=== PATIENT | male | born 1935 | race Caucasian/White ===

== ENCOUNTER 2016-10-07 11:34 | Emergency (ER) | payer OTHER ==
[~2016-10-07] VITALS: Ht 172.7 cm; Wt 110.9 kg
[~2016-10-07 11:34] MED LIST: AGM875 PO
[2016-10-07 11:37] VITALS: TEMP 36.5; Ht 172.7 cm; Wt 110.9 kg
--- NOTE | 2016-10-07 12:44 | EMERGENCY ROOM VISIT NOTE ---
ED Visit Note First contact with patient: 12:23 Resident Physician Supervision Note: I was present with Dr. Mcgrath during the history and exam. I discussed the case with the resident and agree with the findings and plan as documented in the note. Documented By: Lior Boss
[2016-10-07 12:45] VITALS: O2SAT 94
--- NOTE | 2016-10-07 12:47 | EMERGENCY ROOM VISIT NOTE ---
History First contact with patient: 12:23 Chief Complaint: KNEEPAIN Stated Complaint: L KNEE PAIN History of Present Illness The patient is a 81 year old male who presents to the Emergency Room with complaints of knee pain and dizziness. He reports he has a history of knee arthritis, had a R knee replacement and has chronic left knee pain. He reports he woke up today and when getting out of bed he noticed sharp knee pain that lasted 1-2 minutes. It was mainly in the posterior aspect of the knee. It was sharp, and did not radiate. It resolved on its own. He was then watching TV and laying on his right side, and then noticed his vision became blurry for a moment. He sat upright and sat towards the left side, and did not notice any visual changes. He went back to the right side and his vision became blurry again. This all resolved and has not occurred when he looks to the right side again now. He denies any pain or dizziness at this moment. He did drive to and back from [place] yesterday and so feels dehydrated. He is still passing urine and stool. Review of Systems See HPI for pertinent positives & negatives. A total of 10 systems reviewed and were otherwise negative. Past Medical/Surgical History Osteoarthritis BPH Previous L leg DVT Family History No pertinent FHx Social History Smoking Status: Never Smoker Current/Historical Medications Scheduled Enoxaparin (Lovenox), 150 MG SC DAILY Omeprazole (Prilosec), 20 MG PO DAILY Tamsulosin Hcl (Flomax), 1 CAP PO 5XWK Scheduled PRN Fluticasone Propionate (Nasal) (Clarispray), 1 SPRAY GRISELDA DAILY PRN for Nasal Congestion Allergies Coded Allergies: No Known Allergies (Unverified , 10/07/16) Physical Exam Vital Signs Date Time Temp Pulse Resp B/P Pulse Ox O2 Delivery O2 Flow Rate FiO2 10/07/16 14:13 71 16 155/75 96 Room Air 68 155/78 70 160/94 10/07/16 12:45 94 Room Air 10/07/16 11:37 36.5 79 18 160/76 94 Room Air Physical Exam GENERAL: Awake, alert, well-appearing, in no acute distress HENT: Normocephalic, atraumatic. Oropharynx unremarkable. EYES: Normal conjunctiva. Sclera non-icteric. NECK: Supple. No nuchal rigidity. FROM. No JVD. RESPIRATORY: Clear to auscultation. CARDIAC: Regular rate, normal rhythm. Extremities warm and well perfused. Pulses equal. ABDOMEN: Soft, non-distended. No tenderness to palpation. No rebound or guarding. No masses. RECTAL: Deferred. MUSCULOSKELETAL: Chest examination reveals no tenderness. The back is symmetrical on inspection without obvious abnormality. There is no CVA tenderness to palpation. No joint edema. LOWER EXTREMITIES: Left leg edema +1, nontender to palpation. Left leg with swelling to posterior aspect of knee, no tenderness to palpation. No evidence of pseudogout. NEURO: Normal sensorium. No sensory or motor deficits noted. SKIN: No rash or jaundice noted. Medical Decision & Procedures Laboratory Results 10/07/16 12:55 Red Blood Count 4.85, Mean Corpuscular Volume 96.3, Mean Corpuscular Hemoglobin 33.4, Mean Corpuscular Hemoglobin Concent 34.7, Mean Platelet Volume 10.4, Neutrophils (%) (Auto) 62.1, Lymphocytes (%) (Auto) 23.2, Monocytes (%) (Auto) 9.8, Eosinophils (%) (Auto) 4.4, Basophils (%) (Auto) 0.3, Neutrophils # (Auto) 3.80, Lymphocytes # (Auto) 1.42, Monocytes # (Auto) 0.60, Eosinophils # (Auto) 0.27, Basophils # (Auto) 0.02 10/07/16 12:55 Test 10/07/16 12:55 White Blood Count 6.12 K/uL (4.8-10.8) Red Blood Count 4.85 M/uL (4.7-6.1) Hemoglobin 16.2 g/dL (14.0-18.0) Hematocrit 46.7 % (42-52) Mean Corpuscular Volume 96.3 fL (80-100) Mean Corpuscular Hemoglobin 33.4 pg (25-34) Mean Corpuscular Hemoglobin Concent 34.7 g/dl (32-36) Platelet Count 230 K/uL (130-400) Mean Platelet Volume 10.4 fL (7.4-10.4) Neutrophils (%) (Auto) 62.1 % Lymphocytes (%) (Auto) 23.2 % Monocytes (%) (Auto) 9.8 % Eosinophils (%) (Auto) 4.4 % Basophils (%) (Auto) 0.3 % Neutrophils # (Auto) 3.80 K/uL (1.4-6.5) Lymphocytes # (Auto) 1.42 K/uL (1.2-3.4) Monocytes # (Auto) 0.60 K/uL (0.11-0.59) Eosinophils # (Auto) 0.27 K/uL (0-0.5) Basophils # (Auto) 0.02 K/uL (0-0.2) RDW Standard Deviation 50.0 fL (36.4-46.3) RDW Coefficient of Variation 14.1 % (11.5-14.5) Immature Granulocyte % (Auto) 0.2 % Immature Granulocyte # (Auto) 0.01 K/uL (0.00-0.02) Anion Gap 9.0 mmol/L (3-11) Est Creatinine Clear Calc Drug Dose 59.3 ml/min Estimated GFR () 65.8 Estimated GFR (Non- 56.8 BUN/Creatinine Ratio 15.6 (10-20) Calcium Level 8.9 mg/dl (8.5-10.1) Total Bilirubin 0.8 mg/dl (0.2-1) Aspartate Amino Transf (AST/SGOT) 23 U/L (15-37) Alanine Aminotransferase (ALT/SGPT) 37 U/L (12-78) Alkaline Phosphatase 80 U/L (45-117) Total Protein 7.3 gm/dl (6.4-8.2) Albumin 3.8 gm/dl (3.4-5.0) Globulin 3.5 gm/dl (2.5-4.0) Albumin/Globulin Ratio 1.1 (0.9-2) Medications Administered Medications (Trade) Dose Ordered Sig/Rachell Route Start Time Stop Time Status Last Admin Dose Admin Enoxaparin Sodium (Lovenox Inj) 150 mg NOW ONCE SQ 10/07/16 15:00 10/07/16 15:01 DC 10/07/16 15:01 150 MG Miscellaneous (Lovenox Teaching Kit) 1 ea 1515 N/A 10/07/16 15:15 10/07/16 15:16 DC 10/07/16 15:16 1 EA Warfarin Sodium (Coumadin Tab) 10 mg NOW ONCE PO 2/20/17 15:15 10/07/16 15:16 DC 10/07/16 15:31 10 MG Procedure ULTRASOUND LEFT VENOUS DOPP LOWER EXT UNILAT CLINICAL HISTORY: Left leg swelling. COMPARISON STUDY: No previous studies for comparison. FINDINGS: No thrombus is visualized within the common femoral vein. The saphenous vein is incompletely compressible. The popliteal vein is incompletely compressible. Color flow evaluation the proximal trifurcation veins of the calf revealed broken flow within the posterior tibial peroneal veins suggestive of thrombus. IMPRESSION: Nonocclusive left leg DVT involving the superficial femoral vein, popliteal vein, posterior tibial vein and peroneal vein. ED Course 12:30: I evaluated the patient in room B5. A complete history and physical was performed. 12:40: I discussed the patient with Dr. Boss, Attending Physician. I ordered a CBC and CMP to evaluate causes of his dizziness. I ordered a knee Xray and also a leg US. 2:15: I was informed that the patient had a Left leg DVT. 2:40: I called Dr. Whittaker and discussed the case with her. She recommended treating the patient with Coumadin 10mg today as well as Lovenox 150mg daily today, with follow up in the Coumadin clinic tomorrow. I spoke to the social work case manager to arrange this appointment. I also spoke to the patient and then discussed this with her daughter Heavenly who lives in [place]. 3:20: I ordered the patient 150mg Lovenox and 10mg Coumadin PO. 3:50: The patient had an appt for the Coumadin Clinic tomorrow at 11am. He was prescribed 3 further doses of Lovenox to bridge therapy. He already had coumadin and dose will be adjusted per Dr. Whittaker in the clinic. He was discharged home in good condition. Medical Decision 81 yo M with chronic leg swelling who presents with persistent left knee pain - differential includes DVT, cellulitis, osteoarthritis, Bakers cyst, and effusion. His dizziness is likely from dehydration. He had an IV placed and labs drawn. He had an XRay of the knee which showed osteoarthritis. His ultrasound showed a DVT. This was discussed with Dr Whittaker, the patient, and his daughter, and all were in agreement that this should be treated. He wanted to switch his care [place] [facility]. An appt was arranged for him for tomorrow. He was given a dose of 10mg of Coumadin and 150mg Lovenox SC. He was discharged home in good condition. Impression Primary Impression: Left leg DVT Departure Information Dispostion Home / Self-Care Condition GOOD Prescriptions Enoxaparin (Lovenox) 120 Mg/0.8 Ml Inj 150 MG SC DAILY for 3 Days, #3 Inject one dose of Lovenox at 3PM on 10/08, 10/09, and then as otherwise instructed by Dr Whittaker Prov: Jamila Mcgrath MD 10/07/16 Referrals No Doctor, Assigned (PCP) Patient Instructions [facility] Resident Tracking Resident Involvement: Resident Care Provided Care Provided: Adult ED
[2016-10-07 13:10] LABS: BASO % 0.3 %; BASO ABS # 0.02 K/uL (0-0.2); COMPLETE YES; EOS % 4.4 %; HEMATOCRIT 46.7 % (42-52); IG% 0.2 %; LYMPH % 23.2 %; LYMPH ABS # 1.42 K/uL (1.2-3.4); MEAN CELL VOLUME 96.3 fL (80-100); MEAN CORPUSCULAR HEMOGLOBIN 33.4 pg (25-34); MEAN CORPUSCULAR HGB CONC 34.7 g/dl (32-36); MEAN PLATELET VOLUME 10.4 fL (7.4-10.4); MONO % 9.8 %; NEUT % 62.1 %; PLATELET COUNT 230 K/uL (130-400); RED BLOOD COUNT 4.85 M/uL (4.7-6.1); WHITE BLOOD COUNT 6.12 K/uL (4.8-10.8)
--- NOTE | 2016-10-07 13:10 | DIAGNOSTIC IMAGING REPORT ---
LEFT KNEE 1 OR 2 VIEWS ROUTINE CLINICAL HISTORY: L KNEE PAIN COMPARISON: None. DISCUSSION: No acute fractures are visualized. There are advanced osteoarthritic changes. There is marked narrowing medial joint compartment. There are prominent dorsal patellar spurs. IMPRESSION: Advanced 3 compartment osteoarthritis. No acute fractures. Electronically signed by: Augustin Davidson M.D. 10/07/2016 1:09 PM Dictated Date/Time: 10/07/2016 1:08 PM
--- NOTE | 2016-10-07 13:23 | DIAGNOSTIC IMAGING REPORT ---
CHEST ONE VIEW PORTABLE CLINICAL HISTORY: DIZZINESS COMPARISON STUDY: 05/04/2006 FINDINGS: The heart is at the upper limits of normal in size. There is borderline elevation right hemidiaphragm. There is no focal pulmonary consolidation. There is no failure. There are no pleural effusions. There is minor right basilar atelectasis.[ IMPRESSION: No active disease in the chest. Electronically signed by: Augustin Davidson M.D. 10/07/2016 1:22 PM Dictated Date/Time: 10/07/2016 1:22 PM
[2016-10-07] MEDS ORDERED: FLUT50SP37 NAE (13:33)
[2016-10-07] MEDS ORDERED: TAMS0.4C38 PO (13:36)
[2016-10-07] MEDS ORDERED: PRLSR20 PO (13:38)
[2016-10-07 13:46] LABS: ALB/GLOB RATIO 1.1 (0.9-2); BUN/CREATININE RATIO 15.6 (10-20); CALCIUM 8.9 mg/dl (8.5-10.1); CREATININE 1.2 mg/dl (0.60-1.40)
[2016-10-07 13:47] LABS: POTASSIUM 4.3 mmol/L (3.5-5.1)
--- NOTE | 2016-10-07 14:11 | DIAGNOSTIC IMAGING REPORT ---
ULTRASOUND LEFT VENOUS DOPP LOWER EXT UNILAT CLINICAL HISTORY: Left leg swelling. COMPARISON STUDY: No previous studies for comparison. FINDINGS: No thrombus is visualized within the common femoral vein. The saphenous vein is incompletely compressible. The popliteal vein is incompletely compressible. Color flow evaluation the proximal trifurcation veins of the calf revealed broken flow within the posterior tibial peroneal veins suggestive of thrombus. IMPRESSION: Nonocclusive left leg DVT involving the superficial femoral vein, popliteal vein, posterior tibial vein and peroneal vein. Electronically signed by: Augustin Davidson M.D. 10/07/2016 2:09 PM Dictated Date/Time: 10/07/2016 2:07 PM
[2016-10-07 14:13] VITALS: BP 160/94; PULSE 70; O2SAT 96
[2016-10-07] MEDS ORDERED: ENOXAPARIN 150 MG/1ML SYR SQ ONE (15:00)
[2016-10-07] MEDS ORDERED: LOVENOX TEACHING KIT SCH (15:15)
[2016-10-07] MEDS ORDERED: WARFARIN SOD 5 MG TAB PO ONE (15:15)
[2016-10-07] MEDS ORDERED: ENOX120I SC (15:44)
[2016-10-11] MEDS ORDERED: WARF5TAB90 PO (11:19)
[2016-10-16] MEDS ORDERED: CMD75 PO (16:18)
[2017-01-28] MEDS ORDERED: POTA10CA28 PO (14:55)
[2017-01-28] MEDS ORDERED: FURO-85 PO (14:55)
== END 2016-10-07 16:02 | disposition home or self-care (01) ==
LOC: C.EDB 11:35
DX: I82.402 Acute embolism and thrombosis of unspecified deep veins of left lower extremity (principal); M19.90 Unspecified osteoarthritis, unspecified site; N40.0 Benign prostatic hyperplasia without lower urinary tract symptoms; Z79.01 Long term (current) use of anticoagulants; Z79.899 Other long term (current) drug therapy; I82.412 Acute embolism and thrombosis of left femoral vein; I82.432 Acute embolism and thrombosis of left popliteal vein; I82.442 Acute embolism and thrombosis of left tibial vein; I82.492 Acute embolism and thrombosis of other specified deep vein of left lower extremity

== ENCOUNTER → 2017-01-02 | Outpatient (CLI) | payer OTHER ==
[~2017-01-02] MED LIST changes: -AGM875 PO; +CLR10 PO; +CMD75 PO; +FLUT50SP37 NAE; +FURO-85 PO; +POTA10CA28 PO; +PRLSR20 PO; +TAMS0.4C38 PO; +WARF5TAB90 PO
[2017-01-02 17:45] LABS: BASO % 0.4 %; BASO ABS # 0.02 K/uL (0-0.2); COMPLETE YES; EOS % 5.1 %; HEMATOCRIT 45.8 % (42-52); IG% 0.2 %; LYMPH % 19.5 %; LYMPH ABS # 1.07 K/uL (1.2-3.4); MEAN CELL VOLUME 99.8 fL (80-100); MEAN CORPUSCULAR HGB CONC 34.1 g/dl (32-36); MEAN PLATELET VOLUME 10.7 fL (7.4-10.4); MONO % 11.7 %; NEUT % 63.1 %; PLATELET COUNT 255 K/uL (130-400); RED BLOOD COUNT 4.59 M/uL (4.7-6.1); WHITE BLOOD COUNT 5.48 K/uL (4.8-10.8)
[2017-01-02 17:55] LABS: ALT/SGPT 36 U/L (12-78); AST/SGOT 26 U/L (15-37); BLOOD UREA NITROGEN 17 mg/dl (7-18); BUN/CREATININE RATIO 12.7 (10-20); CALCIUM 8.2 mg/dl (8.5-10.1); CARBON DIOXIDE 26 mmol/L (21-32); CHLORIDE 112 mmol/L (98-107); GLUCOSE 105 mg/dl (70-99); SODIUM 144 mmol/L (136-145)
[2017-01-02 18:05] LABS: ALB/GLOB RATIO 1.1 (0.9-2); ALKALINE PHOSPHATASE 94 U/L (45-117)
[2017-01-02 18:27] LABS: URINE TOTAL PROTEIN 8.6 mg/dl (0-11.9)
== END | disposition home or self-care (01) ==
LOC: C.LABBC 12:24
PROVIDERS: ATTEND Family Medicine
DX: R60.0 Localized edema (principal); I82.402 Acute embolism and thrombosis of unspecified deep veins of left lower extremity

== ENCOUNTER → 2017-07-01 | Outpatient (CLI) | payer OTHER ==
--- NOTE | 2017-07-01 11:52 | DIAGNOSTIC IMAGING REPORT ---
L KNEE 1 OR 2 VIEWS ROUTINE CLINICAL HISTORY: M17.10 LEFT KNEE PAIN COMPARISON: 10/07/2016 DISCUSSION: No acute fractures are visualized. There are advanced osteoarthritic changes. There are small dorsal patellar spurs. No destructive lesions are delineated. IMPRESSION: Advanced osteoarthritic change. No acute fractures. Electronically signed by: Augustin Davidson M.D. 07/01/2017 11:51 AM Dictated Date/Time: 07/01/2017 11:50 AM
== END | disposition home or self-care (01) ==
LOC: C.RAD 11:29
PROVIDERS: ATTEND Neuromusculoskeletal Medicine & OMM
DX: M17.10 Unilateral primary osteoarthritis, unspecified knee (principal)

== ENCOUNTER → 2017-07-15 | Outpatient (CLI) | payer OTHER ==
[2017-07-15 14:39] LABS: BASO % 0.1 %; BASO ABS # 0.01 K/uL (0-0.2); COMPLETE YES; EOS % 3.2 %; HEMATOCRIT 46.7 % (42-52); IG% 0.2 %; LYMPH % 12.3 %; MEAN CELL VOLUME 99.8 fL (80-100); MEAN CORPUSCULAR HEMOGLOBIN 34.4 pg (25-34); MEAN CORPUSCULAR HGB CONC 34.5 g/dl (32-36); MEAN PLATELET VOLUME 10.6 fL (7.4-10.4); MONO % 7.2 %; PLATELET COUNT 230 K/uL (130-400); RED BLOOD COUNT 4.68 M/uL (4.7-6.1); WHITE BLOOD COUNT 8.15 K/uL (4.8-10.8)
== END | disposition home or self-care (01) ==
LOC: C.LAB 13:08
PROVIDERS: ATTEND Orthopaedic Surgery
DX: M25.561 Pain in right knee (principal)

== ENCOUNTER → 2017-07-17 | Outpatient (CLI) | payer OTHER ==
--- NOTE | 2017-07-17 14:14 | DIAGNOSTIC IMAGING REPORT ---
BONE SCAN 3PHASE WHOLE BODY HISTORY: 82 years-old Male R KNEE PAIN, STATUS POST right knee pain unspecified chronicity. History of prior right knee arthroplasty 10 years ago. History of prostate cancer. Prior left hip arthroplasty. COMPARISON: None available TECHNIQUE: Anterior and posterior whole-body planar scintigraphic images from a bone scan were obtained in addition to 3 phase bone scan of the bilateral knees utilizing 27.6 mCi technetium 99 MDP. FINDINGS: Physiologic radiotracer uptake is noted within the kidneys, and bladder. There is mild nonspecific soft tissue uptake within the distribution of the scrotum and also within the bilateral lower legs. Focal area of moderate radiotracer uptake within the right mid foot is noted in addition to focal moderate radiotracer uptake within the lateral aspect of the right wrist, symmetrically about the bilateral shoulders and also about the left knee suggesting degenerative changes. Multifocal mild to moderate uptake throughout the spine within the region of the facet joints also suggests degenerative related changes. Photopenia about the left hip and right knee compatible with joint arthroplasties. Mild increased radiotracer uptake about the tibial stem is noted both medially and laterally. There is normal blood flow and blood pool about the bilateral knees. There is moderate delayed tricompartmental uptake about the left knee suggesting osteoarthritis. Mild to moderate delayed uptake about the right knee is noted involving both the medial and lateral aspects of the proximal tibia adjacent to the tibial arthroplasty stem. IMPRESSION: 1. Right knee arthroplasty with mild to moderate delayed tracer uptake about the tibial stem both medially and laterally suggesting physiologic remodeling changes. Changes related to hardware loosening also in the differential. Correlate with radiographs. 2. Moderate delayed tricompartmental uptake about the left knee suggests osteoarthritis. 3. Normal blood flow and blood pool of the knees. 4. Mild nonspecific soft tissue uptake about the scrotum and bilateral lower legs may be related to venous stasis and/or edema among other etiologies. 5. Moderate focal radiotracer uptake about the right wrist and right midfoot suggests osteoarthritis or fracture. Correlate with radiographs. The above report was generated using voice recognition software. It may contain grammatical, syntax or spelling errors. Electronically signed by: Farhan Allen M.D. 07/17/2017 2:12 PM Dictated Date/Time: 07/17/2017 1:56 PM
== END | disposition home or self-care (01) ==
LOC: C.NUCL 09:46
PROVIDERS: ATTEND Orthopaedic Surgery
DX: M25.561 Pain in right knee (principal)

== ENCOUNTER 2022-06-09 09:32 | Inpatient (IN) ==
[2022-06-09] MEDS ORDERED: VANCOMYCIN CONSULT ACTIVE PRN (09:59)
[2022-06-09] MEDS ORDERED: VANCOMYCIN HCL 2,250 MG in SODIUM CHLORIDE 0.9% 500 ML IV ONE (09:59)
[2022-06-09] MEDS ORDERED: CEFEPIME 2,000 MG/20 ML VIAL IV STA (09:59)
--- NOTE | 2022-06-09 10:02 | Emergency Department Note ---
History of Present Illness General Chief complaint: Altered Mental Status Time Seen by Provider: 06/09/22 09:58 History of Present Illness 87-year-old male presents to the ED from [facility]. The patient has been at [facility] for several weeks. I did receive a call from Dr. Tompkins from the [facility] prior to the patient being transferred here. He is an 87-year-old male who is being sent for an alteration in mental status and lethargy. He is a DNR/DNI according to Dr. Tompkins. The patient was originally sent to [facility] after a traumatic subarachnoid hemorrhage was found subsequent to a fall about a month ago. The patient was also suspected to have a cervical ligamentous injury. Prior to this he had multiple falls and was mostly nonambulatory but in a wheelchair. He had been COVID-positive back on 05/13/2022. The patient was found this morning by staff to be more lethargic than usual. His heart rate was tachycardic at around 140. Patient is unable to provide any information due to his altered mental status. Dr. Tompkins did report that the patient is being treated for osteomyelitis. He has been receiving Zosyn and vancomycin. Home Medications Medication Instructions Recorded Confirmed Type donepezil 10 mg tablet 10 mg PO DAILY 08/29/20 06/03/22 History acetaminophen 650 mg tablet 650 mg PO Q4H PRN Pain 06/03/22 06/03/22 History docusate sodium 50 mg/mL oral 100 mg PO BID 06/03/22 06/03/22 History solution enoxaparin 30 mg/0.3 mL 30 mg subcut Q12H 06/03/22 06/03/22 History subcutaneous syringe metoprolol tartrate 50 mg tablet 25 mg PO DAILY 06/03/22 06/03/22 History (Lopressor) nystatin 100,000 unit/gram topical 1 applic topical BID 06/03/22 06/03/22 History powder piperacillin-tazobactam 3.375 gram 3.375 g IV Q6H 06/03/22 06/03/22 History intravenous solution quetiapine 50 mg tablet (Seroquel) 50 mg PO HS 06/03/22 06/03/22 History valproic acid 250 mg capsule 250 mg PO BID 06/03/22 06/03/22 History vancomycin 1.5 gram intravenous 1 g IV DAILY 06/03/22 06/03/22 History solution Allergies Allergy/AdvReac Type Severity Reaction Status Date / Time No Known Allergies Allergy Verified 06/07/22 13:40 Past Med/Surg History Medical History Acute osteomyelitis of foot History of fall within past 90 days Left leg DVT Surgical History History of appendectomy History of cataract surgery History of tonsillectomy and adenoidectomy History of total right knee replacement Family History Father Prostate cancer Denies family history of Colon cancer Ovarian cancer Myocardial infarction Breast cancer Colorectal cancer Social History Smoking Status: Never smoker Hx Alcohol Use: No Hx Substance Use: No Preferred Language: Cymraes Visual Impairment: Limited Hearing Ability: Hard of Hearing marital status: / Current Living Situation: Alone current occupational status: retired Feels Safe at Home: Yes Childhood Exposure to Second-Hand Smoke: No Dental Care, Regularly: No Physical Activity Frequency: Does not Exercise Seatbelt Use: always Sunscreen Use: No Review of Systems A total of 10 systems reviewed and were otherwise negative Unobtainable due to cognitive status Physical Exam Vital Signs Vital Signs - 24 hr 06/09/22 09:40 06/09/22 09:40 06/09/22 10:09 Temperature 39.2 C H Temperature Source Rectal Pulse Rate 134 H Respiratory Rate 32 H Respiratory Effort / Characteristics Gasping/Agonal Respiratory Pattern Gasping Blood Pressure 149/97 H Blood Pressure Mean 114 Blood Pressure Position Lying Pulse Oximetry 94 95 Oxygen Delivery Method Room Air Room Air Room Air Sepsis Recent Fever Within 48 Hours Yes Sepsis New/Unexplained Change in Mental Status Yes Sepsis Action Taken by Nursing Physician Notified 06/09/22 10:41 06/09/22 11:00 06/09/22 11:30 Temperature Temperature Source Pulse Rate 117 H 115 H 111 H Respiratory Rate 30 H 28 H 28 H Respiratory Effort / Characteristics Respiratory Pattern Blood Pressure 140/77 148/88 H 147/77 H Blood Pressure Mean 98 108 100 Blood Pressure Position Pulse Oximetry 93 93 94 Oxygen Delivery Method Sepsis Recent Fever Within 48 Hours Sepsis New/Unexplained Change in Mental Status Sepsis Action Taken by Nursing 06/09/22 12:00 06/09/22 12:26 06/09/22 12:30 Temperature 37.1 C Temperature Source Axillary Pulse Rate 107 H 104 H Respiratory Rate 27 H 27 H Respiratory Effort / Characteristics Respiratory Pattern Blood Pressure 141/80 H 151/78 H Blood Pressure Mean 100 102 Blood Pressure Position Pulse Oximetry 94 93 Oxygen Delivery Method Sepsis Recent Fever Within 48 Hours Sepsis New/Unexplained Change in Mental Status Sepsis Action Taken by Nursing 06/09/22 13:00 Temperature Temperature Source Pulse Rate 100 H Respiratory Rate 19 Respiratory Effort / Characteristics Respiratory Pattern Blood Pressure 149/92 H Blood Pressure Mean 111 Blood Pressure Position Pulse Oximetry 95 Oxygen Delivery Method Sepsis Recent Fever Within 48 Hours Sepsis New/Unexplained Change in Mental Status Sepsis Action Taken by Nursing CONSTITUTIONAL/VITAL SIGNS: Reviewed / noted above. GENERAL: Chronically ill-appearing INTEGUMENTARY: Warm, dry, and slightly pale. HEAD: Normocephalic. EYES: without scleral icterus or trauma. ENT/OROPHARYNX: clear and dry. LYMPHADENOPATHY/NECK: No lymphadenopathy. RESPIRATORY: Clear but diminished anteriorly to auscultation bilaterally. No increased work of breathing. CARDIOVASCULAR: Tachycardic rate and regular rhythm GI/ABDOMEN: Soft and nontender. No organomegaly or pulsatile mass. EXTREMITIES: Some chronic skin changes to the distal extremities. Patient wearing inflatable boots for some chronic ulcerations. NEUROLOGICAL: With some mild painful stimulus, the patient does seem to awaken enough to say yes or no although does not state any more words than that and only does that rarely. For the most part the patient only responds to painful stimuli with a gray. Unclear if he is responding appropriately to questions when he does respond, which is infrequent. The son states that he drank an Ensure last night. Unlikely this would be able to occur currently based on his mental status. MUSCULOSKELETAL: Muscle weakness diffusely TRIAGE NURSING DOCUMENTATION REVIEWED. Course Administered Medications Discontinued Medications Cefepime HCl (Maxipime) 2,000 mg in 20 mls @ 5 mls/min IV NOW STA; Protocol Stop: 06/09/22 10:02 Last Admin: 06/09/22 10:20 Dose: 5 mls/min Documented By: BRADFORD Vancomycin HCl 2,250 mg/ (Sodium Chloride) 545 mls @ 200 mls/hr IV NOW ONE Stop: 06/09/22 12:42 Last Admin: 06/09/22 10:41 Dose: 200 mls/hr Documented By: VENANCIO Sodium Chloride (Nss 1000ml) 2,000 mls @ 999 mls/hr IV .Q2H1M ONE Stop: 06/09/22 12:03 Last Admin: 06/09/22 10:41 Dose: 999 mls/hr Documented By: VENANCIO Medical Decision Making Differential Diagnosis Differential includes acute coronary syndrome, myocardial infarction, CVA, TIA, anemia, infection, pneumonia, UTI, pyelonephritis, poor nutrition, dehydration, electrolyte disturbance,hypoglycemia. Medical Records Attestation: I reviewed the patient's medical records. Home Medications Current Medication List: was personally reviewed by me Laboratory Data Attestation: I reviewed the patient's lab results. Result diagrams: 06/09/22 09:57 06/09/22 09:57 Lab Results 06/09/22 06/09/22 06/09/22 Range/Units 09:57 09:57 09:57 WBC 21.38 H (4.8-10.8) K/ul RBC 4.18 L (4.63-6.08) M/uL Hgb 14.2 (14.0-18.0) g/dl Hct 40.5 (40.1-51.0) % MCV 96.9 (80.0-100.0) fL MCH 34.0 (25.0-34.0) pg MCHC 35.1 (32.0-36.0) g/dL RDW Std Deviation 60.6 H (36.4-46.3) fL RDW Coeff of Emmy 16.9 H (11.5-14.5) % Plt Count 248 (130-400) K/uL MPV 10.6 (9.4-12.4) fL Immature Gran % (Auto) 1.0 % Neut % (Auto) 88.5 % Lymph % (Auto) 3.6 % Schley % (Auto) 6.7 % Eos % (Auto) 0.0 % Baso % (Auto) 0.2 % Neut # (Auto) 18.93 H (1.4-6.5) K/uL Lymph # (Auto) 0.76 L (1.2-3.4) K/uL Schley # (Auto) 1.43 H (0.24-0.82) K/uL Eos # (Auto) 0.00 (0-0.50) K/uL Baso # (Auto) 0.04 (0-0.2) K/uL Immature Gran # (Auto) 0.22 H (0.00-0.02) K/uL PT 12.4 H (9.0-12.0) Seconds INR 1.2 H (0.9-1.1) APTT 35.3 H (21.0-31.0) Seconds PTT Ratio 1.3 Sodium 138 (136-145) mmol/L Potassium 2.9 L (3.5-5.1) mmol/L Chloride 107 (98-107) mmol/L Carbon Dioxide 23 (21-32) mmol/L Anion Gap 8 (3-11) BUN 11 (6-23) mg/dl Creatinine 0.99 (0.6-1.4) mg/dl Est Cr Clr Drug Dosing 60.4 ml/min Est GFR ( Amer) 79.6 ml/min Est GFR (Non-Af Amer) 68.7 ml/min BUN/Creatinine Ratio 11.1 (10-20) Glucose 145 H (70-99(Fasting)) mg/dl POC Glucose (70-99) mg/dl Lactate (0.4-2.0) mmol/L Calcium 8.8 (8.5-10.1) mg/dl Magnesium 2.0 (1.7-2.4) mg/dl Total Bilirubin 1.1 H (0.2-1.0) mg/dl AST 17 (13-39) U/L ALT 17 (7-52) U/L Alkaline Phosphatase 66 (34-104) U/L Ammonia (18-72) umol/L Troponin I High Sens 37.2 H (0-20) pg/ml Total Protein 6.7 (6.0-8.3) gm/dl Albumin 2.8 L (3.4-5.0) gm/dl Globulin 3.9 (2.5-4.0) gm/dl Albumin/Globulin Ratio 0.7 L (0.9-2) Procalcitonin (0-0.5) ng/ml Urine Color Urine Appearance (Clear) Urine pH (4.5-7.5) Ur Specific [place] (1.000-1.030) Urine Protein (Negative) Urine Glucose (UA) (Negative) Urine Ketones (Negative) Urine Blood (Negative) Urine Nitrite (Negative) Urine Bilirubin (Negative) Urine Urobilinogen (Negative) Ur Leukocyte Esterase (Negative) Urine WBC (Auto) (0-5) /hpf Urine RBC (Auto) (0-4) /hpf U Hyaline Cast (Auto) (0-5) /lpf U Epithel Cells (Auto) (0-5) /lpf Urine Bacteria (Auto) (Negative) Amorphous Sediment (None Prsent) Urine Yeast Urine Opiates Screen (Neg) Ur Methadone, Qual (Neg) Urine Barbiturates (Neg) Ur Phencyclidine (PCP) (Neg) U Amphetamin/Meth Scrn (Neg) MDMA (Ecstasy) Screen (Neg) U Benzodiazepines Scrn (Neg) Ur Cocaine Metabolite (Neg) U Marijuana (THC) Screen (Neg) 06/09/22 06/09/22 06/09/22 Range/Units 09:57 09:57 09:57 WBC (4.8-10.8) K/ul RBC (4.63-6.08) M/uL Hgb (14.0-18.0) g/dl Hct (40.1-51.0) % MCV (80.0-100.0) fL MCH (25.0-34.0) pg MCHC (32.0-36.0) g/dL RDW Std Deviation (36.4-46.3) fL RDW Coeff of Emmy (11.5-14.5) % Plt Count (130-400) K/uL MPV (9.4-12.4) fL Immature Gran % (Auto) % Neut % (Auto) % Lymph % (Auto) % Schley % (Auto) % Eos % (Auto) % Baso % (Auto) % Neut # (Auto) (1.4-6.5) K/uL Lymph # (Auto) (1.2-3.4) K/uL Schley # (Auto) (0.24-0.82) K/uL Eos # (Auto) (0-0.50) K/uL Baso # (Auto) (0-0.2) K/uL Immature Gran # (Auto) (0.00-0.02) K/uL PT (9.0-12.0) Seconds INR (0.9-1.1) APTT (21.0-31.0) Seconds PTT Ratio Sodium (136-145) mmol/L Potassium (3.5-5.1) mmol/L Chloride (98-107) mmol/L Carbon Dioxide (21-32) mmol/L Anion Gap (3-11) BUN (6-23) mg/dl Creatinine (0.6-1.4) mg/dl Est Cr Clr Drug Dosing ml/min Est GFR ( Amer) ml/min Est GFR (Non-Af Amer) ml/min BUN/Creatinine Ratio (10-20) Glucose (70-99(Fasting)) mg/dl POC Glucose (70-99) mg/dl Lactate 2.1 H* (0.4-2.0) mmol/L Calcium (8.5-10.1) mg/dl Magnesium (1.7-2.4) mg/dl Total Bilirubin (0.2-1.0) mg/dl AST (13-39) U/L ALT (7-52) U/L Alkaline Phosphatase (34-104) U/L Ammonia 33.0 (18-72) umol/L Troponin I High Sens (0-20) pg/ml Total Protein (6.0-8.3) gm/dl Albumin (3.4-5.0) gm/dl Globulin (2.5-4.0) gm/dl Albumin/Globulin Ratio (0.9-2) Procalcitonin 0.62 H (0-0.5) ng/ml Urine Color Urine Appearance (Clear) Urine pH (4.5-7.5) Ur Specific [place] (1.000-1.030) Urine Protein (Negative) Urine Glucose (UA) (Negative) Urine Ketones (Negative) Urine Blood (Negative) Urine Nitrite (Negative) Urine Bilirubin (Negative) Urine Urobilinogen (Negative) Ur Leukocyte Esterase (Negative) Urine WBC (Auto) (0-5) /hpf Urine RBC (Auto) (0-4) /hpf U Hyaline Cast (Auto) (0-5) /lpf U Epithel Cells (Auto) (0-5) /lpf Urine Bacteria (Auto) (Negative) Amorphous Sediment (None Prsent) Urine Yeast Urine Opiates Screen (Neg) Ur Methadone, Qual (Neg) Urine Barbiturates (Neg) Ur Phencyclidine (PCP) (Neg) U Amphetamin/Meth Scrn (Neg) MDMA (Ecstasy) Screen (Neg) U Benzodiazepines Scrn (Neg) Ur Cocaine Metabolite (Neg) U Marijuana (THC) Screen (Neg) 06/09/22 06/09/22 06/09/22 Range/Units 10:16 11:04 11:04 WBC (4.8-10.8) K/ul RBC (4.63-6.08) M/uL Hgb (14.0-18.0) g/dl Hct (40.1-51.0) % MCV (80.0-100.0) fL MCH (25.0-34.0) pg MCHC (32.0-36.0) g/dL RDW Std Deviation (36.4-46.3) fL RDW Coeff of Emmy (11.5-14.5) % Plt Count (130-400) K/uL MPV (9.4-12.4) fL Immature Gran % (Auto) % Neut % (Auto) % Lymph % (Auto) % Schley % (Auto) % Eos % (Auto) % Baso % (Auto) % Neut # (Auto) (1.4-6.5) K/uL Lymph # (Auto) (1.2-3.4) K/uL Schley # (Auto) (0.24-0.82) K/uL Eos # (Auto) (0-0.50) K/uL Baso # (Auto) (0-0.2) K/uL Immature Gran # (Auto) (0.00-0.02) K/uL PT (9.0-12.0) Seconds INR (0.9-1.1) APTT (21.0-31.0) Seconds PTT Ratio Sodium (136-145) mmol/L Potassium (3.5-5.1) mmol/L Chloride (98-107) mmol/L Carbon Dioxide (21-32) mmol/L Anion Gap (3-11) BUN (6-23) mg/dl Creatinine (0.6-1.4) mg/dl Est Cr Clr Drug Dosing ml/min Est GFR ( Amer) ml/min Est GFR (Non-Af Amer) ml/min BUN/Creatinine Ratio (10-20) Glucose (70-99(Fasting)) mg/dl POC Glucose 171 H (70-99) mg/dl Lactate (0.4-2.0) mmol/L Calcium (8.5-10.1) mg/dl Magnesium (1.7-2.4) mg/dl Total Bilirubin (0.2-1.0) mg/dl AST (13-39) U/L ALT (7-52) U/L Alkaline Phosphatase (34-104) U/L Ammonia (18-72) umol/L Troponin I High Sens (0-20) pg/ml Total Protein (6.0-8.3) gm/dl Albumin (3.4-5.0) gm/dl Globulin (2.5-4.0) gm/dl Albumin/Globulin Ratio (0.9-2) Procalcitonin (0-0.5) ng/ml Urine Color Dark Yellow Urine Appearance Cloudy A (Clear) Urine pH 5.0 (4.5-7.5) Ur Specific [place] 1.038 H (1.000-1.030) Urine Protein 2+ H (Negative) Urine Glucose (UA) Trace H (Negative) Urine Ketones Trace H (Negative) Urine Blood Negative (Negative) Urine Nitrite Negative (Negative) Urine Bilirubin 1+ H (Negative) Urine Urobilinogen Negative (Negative) Ur Leukocyte Esterase Trace H (Negative) Urine WBC (Auto) 1-5 (0-5) /hpf Urine RBC (Auto) 0-4 (0-4) /hpf U Hyaline Cast (Auto) 1-5 (0-5) /lpf U Epithel Cells (Auto) 20-30 H (0-5) /lpf Urine Bacteria (Auto) 1+ H (Negative) Amorphous Sediment Present A (None Prsent) Urine Yeast Not Reportable Urine Opiates Screen Neg (Neg) Ur Methadone, Qual Neg (Neg) Urine Barbiturates Neg (Neg) Ur Phencyclidine (PCP) Neg (Neg) U Amphetamin/Meth Scrn Neg (Neg) MDMA (Ecstasy) Screen Neg (Neg) U Benzodiazepines Scrn Neg (Neg) Ur Cocaine Metabolite Neg (Neg) U Marijuana (THC) Screen Neg (Neg) 06/09/22 Range/Units 11:42 WBC (4.8-10.8) K/ul RBC (4.63-6.08) M/uL Hgb (14.0-18.0) g/dl Hct (40.1-51.0) % MCV (80.0-100.0) fL MCH (25.0-34.0) pg MCHC (32.0-36.0) g/dL RDW Std Deviation (36.4-46.3) fL RDW Coeff of Emmy (11.5-14.5) % Plt Count (130-400) K/uL MPV (9.4-12.4) fL Immature Gran % (Auto) % Neut % (Auto) % Lymph % (Auto) % Schley % (Auto) % Eos % (Auto) % Baso % (Auto) % Neut # (Auto) (1.4-6.5) K/uL Lymph # (Auto) (1.2-3.4) K/uL Schley # (Auto) (0.24-0.82) K/uL Eos # (Auto) (0-0.50) K/uL Baso # (Auto) (0-0.2) K/uL Immature Gran # (Auto) (0.00-0.02) K/uL PT (9.0-12.0) Seconds INR (0.9-1.1) APTT (21.0-31.0) Seconds PTT Ratio Sodium (136-145) mmol/L Potassium (3.5-5.1) mmol/L Chloride (98-107) mmol/L Carbon Dioxide (21-32) mmol/L Anion Gap (3-11) BUN (6-23) mg/dl Creatinine (0.6-1.4) mg/dl Est Cr Clr Drug Dosing ml/min Est GFR ( Amer) ml/min Est GFR (Non-Af Amer) ml/min BUN/Creatinine Ratio (10-20) Glucose (70-99(Fasting)) mg/dl POC Glucose (70-99) mg/dl Lactate 1.5 (0.4-2.0) mmol/L Calcium (8.5-10.1) mg/dl Magnesium (1.7-2.4) mg/dl Total Bilirubin (0.2-1.0) mg/dl AST (13-39) U/L ALT (7-52) U/L Alkaline Phosphatase (34-104) U/L Ammonia (18-72) umol/L Troponin I High Sens (0-20) pg/ml Total Protein (6.0-8.3) gm/dl Albumin (3.4-5.0) gm/dl Globulin (2.5-4.0) gm/dl Albumin/Globulin Ratio (0.9-2) Procalcitonin (0-0.5) ng/ml Urine Color Urine Appearance (Clear) Urine pH (4.5-7.5) Ur Specific [place] (1.000-1.030) Urine Protein (Negative) Urine Glucose (UA) (Negative) Urine Ketones (Negative) Urine Blood (Negative) Urine Nitrite (Negative) Urine Bilirubin (Negative) Urine Urobilinogen (Negative) Ur Leukocyte Esterase (Negative) Urine WBC (Auto) (0-5) /hpf Urine RBC (Auto) (0-4) /hpf U Hyaline Cast (Auto) (0-5) /lpf U Epithel Cells (Auto) (0-5) /lpf Urine Bacteria (Auto) (Negative) Amorphous Sediment (None Prsent) Urine Yeast Urine Opiates Screen (Neg) Ur Methadone, Qual (Neg) Urine Barbiturates (Neg) Ur Phencyclidine (PCP) (Neg) U Amphetamin/Meth Scrn (Neg) MDMA (Ecstasy) Screen (Neg) U Benzodiazepines Scrn (Neg) Ur Cocaine Metabolite (Neg) U Marijuana (THC) Screen (Neg) Imaging Data Radiologist's Impression: Chest X-Ray 06/09/22 09:37 SINGLE VIEW CHEST CLINICAL HISTORY: Change in mental status. FINDINGS: An AP, portable, upright chest radiograph is compared to study dated 06/03/2022. The examination is degraded by portable technique and patient rotation. A right PICC line is unchanged in position. The cardiomediastinal silhouette is top normal for projection. There is elevation of the right hemidiaphragm with bibasilar scarring/atelectasis. No airspace consolidation or large pleural effusion is identified. No pneumothorax is seen. The skeletal structures are osteopenic. The bony thorax is grossly intact. Arthritic change is seen in the shoulders. IMPRESSION: No acute cardiopulmonary abnormality. ACT 112: Negative or not required by law. Electronically signed by: Lowell Long M.D. 06/09/2022 10:48 AM ECG Data Attestation: I personally reviewed and interpreted this ECG as follows: Additional Comments: Twelve-lead EKG: Per my interpretation shows a sinus tach at a rate of 133. No ST elevation. No PVCs. Normal QTC. MDM Narrative 87-year-old male presents with an alteration in mental status. Has been at [facility] for several weeks. He was admitted there after a traumatic subarachnoid hemorrhage for rehab. Has not been able to do rehab very well since his arrival. Patient's mental status was altered this morning with a tac hycardia and he was sent here for further evaluation. He has a temperature of 39.2. Blood pressure is 149/97 with a heart rate of 134. Respiratory rate is 32. Oxygen saturations are 95% on room air. Exam as noted above. His white blood cell count is 21.3. Potassium 2.9. Lactic is 2.1. Troponin is 37. Pro- Lee is 0.62. Urine does not show clear infection but is a possibility. Chest x-ray was negative for acute disease. The patient was given 2 L of normal saline IV. His heart rate significantly improved and his fever resolved. Blood pressure stable. He was given empiric IV vancomycin and IV cefepime. The patient will be seen by the hospitalist for further evaluation and care. Impression & Plan Fever, Altered mental status, Acute osteomyelitis of left foot Discharge Plan Visit Data Chief Complaint: Altered Mental Status ED Provider: Magen Choi Discharge Problem: Fever, Altered mental status, Acute osteomyelitis of left foot Patient Disposition: Being Evaluated by Hospitalist Forms Stand Alone Forms: My [facility] Prescriptions Prescriptions: No Action donepezil 10 mg tablet 10 mg PO DAILY valproic acid 250 mg Capsule 250 mg PO BID acetaminophen 650 mg Tablet 650 mg PO Q4H PRN (Reason: Pain) piperacillin-tazobactam [Zosyn] 3.375 gram Recon Soln 3.375 g IV Q6H metoprolol tartrate [Lopressor] 50 mg Tablet 25 mg PO DAILY nystatin 100,000 unit/gram Powder 1 applic TOPICAL BID enoxaparin 30 mg/0.3 mL Syringe 30 mg SUBCUT Q12H docusate sodium 50 mg/mL Solution 100 mg PO BID quetiapine [Seroquel] 50 mg Tablet 50 mg PO HS vancomycin 1.5 gram Recon Soln 1 g IV DAILY Referrals Referrals: Rachid Chen DO [Primary Care Provider] -
[2022-06-09] MEDS ORDERED: SODIUM CHLORIDE 0.9% 1000ML 2,000 ML IV ONE (10:03)
[2022-06-09 10:12] LABS: Basophils # (auto) 0.04 K/uL (0-0.2); Basophils % (auto) 0.2 %; Hematocrit (blood only) 40.5 % (40.1-51.0); Hemoglobin 14.2 g/dl (14.0-18.0); Immature Granulocytes # (auto) 0.22 K/uL (0.00-0.02); Lymphocytes # (auto) 0.76 K/uL (1.2-3.4); Lymphocytes % (auto) 3.6 %; Mean Corpuscular Hgb Conc 35.1 g/dL (32.0-36.0); Mean Corpuscular Volume 96.9 fL (80.0-100.0); Mean Platelet Volume 10.6 fL (9.4-12.4); Monocytes # (auto) 1.43 K/uL (0.24-0.82); Monocytes % (auto) 6.7 %; Neutrophils # (auto) 18.93 K/uL (1.4-6.5); Neutrophils % (auto) 88.5 %; Platelet Count 248 K/uL (130-400); RDW Coefficient of Variation 16.9 % (11.5-14.5); RDW Standard Deviation 60.6 fL (36.4-46.3); Red Blood Count 4.18 M/uL (4.63-6.08); White Blood Count 21.38 K/ul (4.8-10.8)
[2022-06-09 10:32] LABS: Albumin Globulin Ratio 0.7 (0.9-2); Albumin Level 2.8 gm/dl (3.4-5.0); BUN Creatinine Ratio 11.1 (10-20); Bilirubin,Total 1.1 mg/dl (0.2-1.0); Calcium 8.8 mg/dl (8.5-10.1); Creatinine Clr Calc Pharmacy 60.4 ml/min; Est GFR (African American) 79.6 ml/min; Est GFR (Non-African American) 68.7 ml/min; Globulin 3.9 gm/dl (2.5-4.0); Potassium 2.9 mmol/L (3.5-5.1); Total Protein 6.7 gm/dl (6.0-8.3)
[2022-06-09 10:38] LABS: Troponin I High Sensitivity 37.2 pg/ml (0-20)
[2022-06-09 10:49] LABS: INR 1.2 (0.9-1.1); Partial Thromboplastin Ratio 1.3; Partial Thromboplastin Time 35.3 Seconds (21.0-31.0); Prothrombin Time 12.4 Seconds (9.0-12.0)
--- NOTE | 2022-06-09 10:50 | XRay Report ---
SINGLE VIEW CHEST CLINICAL HISTORY: Change in mental status. FINDINGS: An AP, portable, upright chest radiograph is compared to study dated 06/03/2022. The examin ation is degraded by portable technique and patient rotation. A right PICC line is unchanged in posi tion. The cardiomediastinal silhouette is top normal for projection. There is elevation of the right hemidiaphragm with bibasilar scarring/atelectasis. No airspace consolidation or large pleural effusio n is identified. No pneumothorax is seen. The skeletal structures are osteopenic. The bony thorax is grossly intact. Arthritic change is seen in the shoulders. IMPRESSION: No acute cardiopulmonary abnormality. ACT 112: Negative or not required by law. Electronically signed by: Lowell Long M.D. 06/09/2022 10:48 AM
[2022-06-09 12:10] LABS: Appearance Urine Cloudy (Clear); Bilirubin Urine 1+ (Negative); Blood Urine Negative (Negative); Color Urine Dark Yellow; Epithelial Cell Urine Auto 20-30 /lpf (0-5); Glucose Urine UA Trace (Negative); Ketones Urine Trace (Negative); Leukocyte Esterase Urine Trace (Negative); Nitrite Urine Negative (Negative); Protein Urine 2+ (Negative); Specific Gravity Urine 1.038 (1.000-1.030); Urobilinogen Urine Negative (Negative)
[2022-06-09 12:33] LABS: Amorphous Sediment Urine Present (None Prsent)
[2022-06-09 12:34] LABS: RBC Urine Automated 0-4 /hpf (0-4)
[2022-06-09 12:35] LABS: Bacteria Urine Automated 1+ (Negative)
[2022-06-09 12:56] LABS: Amphetamines+Metham, Urine Neg (Neg); Barbiturates, Urine Neg (Neg); Benzodiazepine, Urine Neg (Neg); Cocaine, Urine Neg (Neg); MDMA (Ecstacy), Urine Neg (Neg); Methadone, Urine Neg (Neg); Opiate, Urine Neg (Neg); Phencyclidine, Urine Neg (Neg)
--- NOTE | 2022-06-09 13:31 | History & Physical Report ---
Date of Service June 09, 2022 Assessment & Plan (1) Sepsis: Plan: -Admit to med/tele -Patient is currently febrile, hemodynamically stable, stable on RA, and tachycardic in the low 100's -AT this time the source of the patient's infection is unknown, patient jayce martin has left heel OM but has been on Vancomycin/Zosyn at [facility] for approximally 10 days, per staff, he has pulled out multiple PICC lines over his stay, the one he currently has placed was placed on 06/07/22, patient has significant leukocytosis with left shift and procal of 0.6. -Will obtain CT of the abdomen/Pelvis w/wo contrast for further evaluation of possible sources of infection, will also get a CT of the left foot/ankle to further evaluate known OM -For now will switch patient to Daptomycin/Cefepime since he was febrile on Vanc/Zosyn, will also start flagyl to cover intra-abdominal sources until workup is complete -Had ED order Biofire for further viral evaluation -Multiple blood culture sets have been obtained, confirmed with nursing staff that one set was obtained from current PICC site, if biofire is negative and becomes bacteremic, would take current PICC out -Placed [facility] consult for evaluation of left heel OM -Continue to monitor infectious workup and tailor antibiotics to results -Will continue with IV fluid resuscitation for now with LR's for 2 more bags as he appears dehydrated -Monitor AM CBC, CMP, Mag Present on Admission?: Yes (2) Altered mental status: Plan: Acute encephalopathy -Baseline appears to be somewhat interactive when he is awake, [facility] staff said that he had an abrupt change this morning -Will obtain STAT CT head to rule out acute changes -Likely his acute infection and dehydration are also playing a role (3) Prostate cancer: Plan: -In remission and not on current therapy (4) Memory loss: Plan: -Contique Aricept (5) Acute osteomyelitis of left foot: Plan: -See sepsis (6) Hx of subdural hematoma: Plan: -Per [facility], had been cleared by Neurosurgery for chemical DVT PPX -FU with CT head to rule out acute changes (7) HTN (hypertension): Plan: -Will continue metoprolol for now as he is hemodynamically stable (8) Hypokalemia: Plan: -Noted to be 2.9 today, likely from recent poor oral intake -Giving 3 doses of 10 meq KCL riders then will continue with LR's -Will order evening potassium to FU, mag has been stable Plan The patient was discussed with Dr. Chandler at the time of the admission History of Present Illness Chief Complaint: AMS Primary Care Provider: Rachid Chen DO Chuckie is an 87 year old male with a PMH significant for recent traumatic subarachnoid hemorrhage (Currently at [facility]), Dementia, prostate cancer (in remission), previous DVTs on Warfarin, HTN, left heel osteomyelitis (has been on Zosyn and Vancomycin at [facility]), In the ED the patient was found to be febrile at 39.2 C, hemodynamically stable, stable on RA, and tachycardic in the low 100's. Labs were significant for leukocytosis of 21.38, left shift of 18.93, stable Hgb, INR of 1.2, potassium of 2.9, initial lactate of 2.1 which improved to 1.5 after fluid resuscitation, stable renal function, glucose of 171, high sensitivity troponin of 37.2, procal of 0.62, UA not suggestive of infection, negative tox screen. Chest xray was read as negative for acute processes. Prior to admission the patient was given 2L NSS, and was started on Vancomycin and Cefepime. At the time of the exam the patient was sleeping in bed. His nurses state that since arrival he has been very hard to wake, but after fluid resuscitation and antibiotics it has become a little easier. I was unable to get any history from the patient due to his current mental status. I was able to get in touch with his Physician at [facility] to obtain further information. They state that at baseline the patient is normally not very interactive, especially in the mornings. As he wakes up he will usually take his medications/eat/drink. Up until today he was normally able to sit in a wheelchair without issue. The patient has been on Vancomycin and Zosyn for approximately 10 days at [facility] for the left heel OM, they have a referral in to [facility] but he has yet to be seen by them. This morning the patient was found to be much more lethargic then baseline and would not take medications, eat, or drink, that is why he was sent to the ED. Of note, Dr. Tompkins said that he saw the patient's white count from this AM, this is significantly elevated compared to his White counts at [facility]. I was able to confirm with the ED nursing staff that there were multiple sets of blood cultures obtained, one set was obtained from the patient's PICC line. Allergies Allergy/AdvReac Type Severity Reaction Status Date / Time No Known Allergies Allergy Verified 06/07/22 13:40 Home Medications Medication Instructions Recorded Confirmed Type donepezil 10 mg tablet 10 mg PO DAILY 08/29/20 06/09/22 History acetaminophen 650 mg tablet 650 mg PO Q4H PRN Pain 06/03/22 06/09/22 History docusate sodium 50 mg/mL oral 100 mg PO BID 06/03/22 06/09/22 History solution enoxaparin 30 mg/0.3 mL 30 mg subcut Q12H 06/03/22 06/09/22 History subcutaneous syringe metoprolol tartrate 50 mg tablet 25 mg PO DAILY 06/03/22 06/09/22 History (Lopressor) nystatin 100,000 unit/gram topical 1 applic topical BID 06/03/22 06/09/22 History powder piperacillin-tazobactam 3.375 gram 3.375 g IV Q6H 06/03/22 06/09/22 History intravenous solution quetiapine 50 mg tablet (Seroquel) 50 mg PO HS 06/03/22 06/09/22 History valproic acid 250 mg capsule 250 mg PO BID 06/03/22 06/09/22 History vancomycin 1.5 gram intravenous 1 g IV DAILY 06/03/22 06/09/22 History solution Past Med/Surg History Medical History (Updated 06/09/22 @ 20:50 by Luna Chandler MD) Acute osteomyelitis of foot Chronic gastroesophageal reflux disease Hearing loss History of fall within past 90 days HTN (hypertension) Hx of subdural hematoma Left leg DVT Left leg DVT Memory loss Prostate cancer Somatic dysfunction of lower extremities Unilateral primary osteoarthritis, unspecified knee Surgical History History of appendectomy History of cataract surgery History of tonsillectomy and adenoidectomy History of total right knee replacement Family History Father Prostate cancer Denies family history of Colon cancer Ovarian cancer Myocardial infarction Breast cancer Colorectal cancer Social History Smoking Status: Never smoker Hx Alcohol Use: No Hx Substance Use: No Preferred Language: Azeri Visual Impairment: Limited Hearing Ability: Hard of Hearing marital status: / Current Living Situation: Alone current occupational status: retired Feels Safe at Home: Yes Childhood Exposure to Second-Hand Smoke: No Dental Care, Regularly: No Physical Activity Frequency: Does not Exercise Seatbelt Use: always Sunscreen Use: No Review of Systems Review of Systems: ROS unable to be obtained from patient due to current mental status Physical Exam Physical Exam: Physical Exam: General: In no acute distress, stated age, chronically ill-appearing HEENT: Normocephalic, atraumatic, no scleral icterus, pupils around round, symmetrical, and reactive to light, Dry mucus membranes, trachea midline, no thyromegaly Chest/Pulm: No respiratory distress, symmetrical chest expansion, scattered rhonchi noted in the right upper lung field, left lung is CTA Cardiac: tachycardic rate, regular rhythm, no murmurs noted Abdomen: Negative for ascites and bruising, normoactive bowel sounds, soft, no grimacing or guarding from patient during abdominal palpation : Aburto catheter placed by ED staff is in place, currently draining a small amount of dark urine Musculoskeletal: Patient with chronic left heel wound, currently draining pus, left wilson erythema noted ass well, no acute trauma noted Extremities: Radial, dorsalis pedis, and posterior tibial pulses are intact and symmetrical, no edema noted in the BL LE's, patient with PICC line placed in the LUE is without signs of infection Skin: Warm, dry, no rashes , lesions, or scars noted Neuro: Will only wake by calling name or light touch, does not follow commands at the current time, pupils are round, symmetrical and reactive to light, no other focal defects on exam, patient will not follow commands for other neurologic testing Psych: No acute distress, lethargic, will not follow commands Results & Data Results & Data ([facility]) Vital Signs (Past 12 Hours) Vital Signs Temp Pulse Resp BP Pulse Ox O2 Del Method 06/09/22 13:00 100 H 19 149/92 H 95 06/09/22 12:30 104 H 27 H 151/78 H 93 06/09/22 12:26 37.1 C 06/09/22 12:00 107 H 27 H 141/80 H 94 06/09/22 11:30 111 H 28 H 147/77 H 94 06/09/22 11:00 115 H 28 H 148/88 H 93 06/09/22 10:41 117 H 30 H 140/77 93 06/09/22 10:09 95 Room Air 06/09/22 09:40 Room Air 06/09/22 09:40 39.2 C H 134 H 32 H 149/97 H 94 Room Air Laboratory Results Abnormal lab results 06/09/22 06/09/22 06/09/22 Range/Units 09:57 09:57 09:57 WBC 21.38 H (4.8-10.8) K/ul RBC 4.18 L (4.63-6.08) M/uL RDW Std Deviation 60.6 H (36.4-46.3) fL RDW Coeff of Emmy 16.9 H (11.5-14.5) % Neut # (Auto) 18.93 H (1.4-6.5) K/uL Lymph # (Auto) 0.76 L (1.2-3.4) K/uL [place] # (Auto) 1.43 H (0.24-0.82) K/uL Immature Gran # (Auto) 0.22 H (0.00-0.02) K/uL PT 12.4 H (9.0-12.0) Seconds INR 1.2 H (0.9-1.1) APTT 35.3 H (21.0-31.0) Seconds Potassium 2.9 L (3.5-5.1) mmol/L Glucose 145 H (70-99(Fasting)) mg/dl POC Glucose (70-99) mg/dl Lactate (0.4-2.0) mmol/L Total Bilirubin 1.1 H (0.2-1.0) mg/dl Troponin I High Sens 37.2 H (0-20) pg/ml Albumin 2.8 L (3.4-5.0) gm/dl Albumin/Globulin Ratio 0.7 L (0.9-2) Procalcitonin (0-0.5) ng/ml Urine Appearance (Clear) Ur Specific [place] (1.000-1.030) Urine Protein (Negative) Urine Glucose (UA) (Negative) Urine Ketones (Negative) Urine Bilirubin (Negative) Ur Leukocyte Esterase (Negative) U Epithel Cells (Auto) (0-5) /lpf Urine Bacteria (Auto) (Negative) Amorphous Sediment (None Prsent) 06/09/22 06/09/22 06/09/22 Range/Units 09:57 09:57 10:16 WBC (4.8-10.8) K/ul RBC (4.63-6.08) M/uL RDW Std Deviation (36.4-46.3) fL RDW Coeff of Emmy (11.5-14.5) % Neut # (Auto) (1.4-6.5) K/uL Lymph # (Auto) (1.2-3.4) K/uL [place] # (Auto) (0.24-0.82) K/uL Immature Gran # (Auto) (0.00-0.02) K/uL PT (9.0-12.0) Seconds INR (0.9-1.1) APTT (21.0-31.0) Seconds Potassium (3.5-5.1) mmol/L Glucose (70-99(Fasting)) mg/dl POC Glucose 171 H (70-99) mg/dl Lactate 2.1 H* (0.4-2.0) mmol/L Total Bilirubin (0.2-1.0) mg/dl Troponin I High Sens (0-20) pg/ml Albumin (3.4-5.0) gm/dl Albumin/Globulin Ratio (0.9-2) Procalcitonin 0.62 H (0-0.5) ng/ml Urine Appearance (Clear) Ur Specific [place] (1.000-1.030) Urine Protein (Negative) Urine Glucose (UA) (Negative) Urine Ketones (Negative) Urine Bilirubin (Negative) Ur Leukocyte Esterase (Negative) U Epithel Cells (Auto) (0-5) /lpf Urine Bacteria (Auto) (Negative) Amorphous Sediment (None Prsent) 06/09/22 Range/Units 11:04 WBC (4.8-10.8) K/ul RBC (4.63-6.08) M/uL RDW Std Deviation (36.4-46.3) fL RDW Coeff of Emmy (11.5-14.5) % Neut # (Auto) (1.4-6.5) K/uL Lymph # (Auto) (1.2-3.4) K/uL [place] # (Auto) (0.24-0.82) K/uL Immature Gran # (Auto) (0.00-0.02) K/uL PT (9.0-12.0) Seconds INR (0.9-1.1) APTT (21.0-31.0) Seconds Potassium (3.5-5.1) mmol/L Glucose (70-99(Fasting)) mg/dl POC Glucose (70-99) mg/dl Lactate (0.4-2.0) mmol/L Total Bilirubin (0.2-1.0) mg/dl Troponin I High Sens (0-20) pg/ml Albumin (3.4-5.0) gm/dl Albumin/Globulin Ratio (0.9-2) Procalcitonin (0-0.5) ng/ml Urine Appearance Cloudy A (Clear) Ur Specific [place] 1.038 H (1.000-1.030) Urine Protein 2+ H (Negative) Urine Glucose (UA) Trace H (Negative) Urine Ketones Trace H (Negative) Urine Bilirubin 1+ H (Negative) Ur Leukocyte Esterase Trace H (Negative) U Epithel Cells (Auto) 20-30 H (0-5) /lpf Urine Bacteria (Auto) 1+ H (Negative) Amorphous Sediment Present A (None Prsent) Diagnostic Findings Chest X-Ray 06/09/22 09:37 SINGLE VIEW CHEST CLINICAL HISTORY: Change in mental status. FINDINGS: An AP, portable, upright chest radiograph is compared to study dated 06/03/2022. The examination is degraded by portable technique and patient rotation. A right PICC line is unchanged in position. The cardiomediastinal ricardo houette is top normal for projection. There is elevation of the right hemidiaphragm with bibasilar scarring/atelectasis. No airspace consolidation or large pleural effusion is identified. No pneumothorax is seen. The skeletal structures are osteopenic. The bony thorax is grossly intact. Arthritic change is seen in the shoulders. IMPRESSION: No acute cardiopulmonary abnormality. ACT 112: Negative or not required by law. Electronically signed by: Lowell Long M.D. 06/09/2022 10:48 AM ECG Additional Comments: Sinus tachycardia with short IA Inferior infarct , age undetermined Abnormal ECG When compared with ECG of 05-FEB-2019 18:29, IA interval has decreased Vent. rate has increased BY 52 BPM Nonspecific T wave abnormality now evident in Lateral leads Code Status & VTE Plan Code Status DNR/DNI VTE Prophylaxis Plan VTE Prophylaxis will be ordered: Yes Supervising Physician Co-Signing Physician Notes PA Supervision Note: I personally saw and examined the patient. I verified all campos points and agree with МАРИЯ Mcmanus with the following exceptions and/or additions: S-this patient is an 87-year-old male who has been at [facility] rehab for several weeks after recovering from recent traumatic SAH and also had COVID-19 during hospitalization at [facility] at the end of April and early May. He has since developed a pressure wound of the left heel with subsequent osteomyelitis of the left heel and had a PICC line placed 10 days ago and has been treated with IV vancomycin and Zosyn. There has been no culture data to follow that is available. Who presents to the ER with altered mental status and was found to be septic with fever, leukocytosis, and tachycardia. He is extremely lethargic when I saw him but does arouse to sternal rub and loud verbal stimulus. He starts shouting out "what what what what what what what!?" But otherwise is unable to give me any history. He apparently is also on Seroquel and the physician at [facility] reports that he has had some issues with agitation at rehab. After admission, we obtain a CT of the head and CT of the abdomen/pelvis and this showed acute cholecystitis and possible pancreatitis. Also with possible sinusitis on CT head but other than frontal encephalomalacia, no bleeding. His bio fire also came back positive for COVID-19 after test results from [facility] show that he was negative CoVid-19 on 05/30/2022. 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 O- Vitals reviewed Gen: Very lethargic, does open eyes and yell out loud to sternal rub, protecting airway, no acute distress HEENT: Anicteric sclerae, EOMI, PERRL CV: Tachycardic, regular rhythm no mgr nl S1S2 Pulm: CTAB no wcr Abd: +BS soft NT ND no masses or hernias Ext: Left leg with chronic venous stasis changes, edema, left heel with large 5 to 6 cm open draining wound with purulent drainage, 1+ dorsalis pedis pulses bilaterally Skin: Chronic venous stasis changes with erythema of the left leg as above Neuro: Does move all extremities, but otherwise uncooperative for examination Labs, Rads, and ECG reviewed [id number]-old male here with sepsis, acute metabolic encephalopathy, acute cholecystitis and acute pancreatitis, left heel osteomyelitis, and 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 Left heel osteomyelitis-with possible occluded anterior tibial artery seen on CT scan. Not responding IV vancomycin and Zosyn over the last 10 days with PICC line at rehab. Consult orthopedic surgery and vascular surgery for further evaluation. We will hold off on any further vascular studies until recommendations given by Ortho and vascular. -Change antibiotics to IV cefepime, Flagyl, and daptomycin in case of resistance to vancomycin and Zosyn. Recurrent [id number] ox did drop to 93% on room air at one-point, however no pneumonia on chest x-ray. Would not give Decadron due to ongoing significant infection at this time. Can start Remdesivir x5-day course. Monitor for worsening symptoms. Tylenol for fever Acute cholecystitis-with fever, mildly elevated total bilirubin. CT abdomen/pelvis with evidence of acute cholecystitis but no CBD dilatation. Also with possible pancreatitis but lipase and amylase are normal. Difficult to assess on examination but abdomen is soft. Continue antibiotics as above and consult general surgery. Family is unsure if they would want him to undergo surgery for the gallbladder. -Continue n.p.o. status, IV fluids, supportive care for sepsis. IV Protonix in case of esophagitis seen on CT. Replacing potassium. PG Care Time/CCT Total # of Minutes Spent Total Time Spent with Patient: Total time spent is greater than 50% in coordination of care (as documented) at patient's floor/unit and/or counseling patient: [place] [address] Initial Inpt Care Lvl 3 Patient Type New Medical Decision Making High Complexity Diagnoses Sepsis A41.9 Altered mental status R41.82 Prostate cancer C61 Memory loss R41.3 Acute osteomyelitis of left foot M86.172 Hx of subdural hematoma Z86.79 HTN (hypertension) I10 Hypokalemia E87.6
[2022-06-09] MEDS ORDERED: POTASSIUM CHLORIDE / WTR 10 MEQ/100 ML PLCT IV SCH (13:45)
[2022-06-09] MEDS: POTASSIUM CHLORIDE / WTR 10 MEQ/100 ML PLCT IV SCH ×3 (14:13→16:58)
[2022-06-09 14:35] LABS: Troponin I High Sensitivity 36.3 pg/ml (0-20)
[2022-06-09] MEDS ORDERED: OPTIRAY 350 100ml IV ONE (15:30)
[2022-06-09 15:32] LABS: Adenovirus PCR Not Detected (NotDetected); Bordetella parapertussis PCR Not Detected (NotDetected); Bordetella pertussis PCR Not Detected (NotDetected); Chlamydia pneumoniae PCR Not Detected (NotDetected); Coronavirus 229E PCR Not Detected (NotDetected); Coronavirus HKU1 PCR Not Detected (NotDetected); Coronavirus NL63 PCR Not Detected (NotDetected); Coronavirus OC43PCR Not Detected (NotDetected); Human Metapneumovirus PCR Not Detected (NotDetected); Influenza A PCR Not Detected (NotDetected); Influenza B PCR Not Detected (NotDetected); Mycoplasma pneumoniae PCR Not Detected (NotDetected); Parainfluenza Virus 1 PCR Not Detected (NotDetected); Parainfluenza Virus 2 PCR Not Detected (NotDetected); Parainfluenza Virus 3 PCR Not Detected (NotDetected); Parainfluenza Virus 4 PCR Not Detected (NotDetected); Respiratory Syncytial VirusPCR Not Detected (NotDetected); Rhinovirus/Enterovirus PCR Not Detected (NotDetected)
--- NOTE | 2022-06-09 15:37 | CT Scan Report ---
CT SCAN OF THE BRAIN WITHOUT IV CONTRAST CLINICAL HISTORY: Change in mental status. COMPARISON STUDY: CT of the brain dated 02/17/2019. TECHNIQUE: Unenhanced axial CT scan of the brain is performed from the vertex to the skull base. A do se lowering technique was utilized adhering to the principles of ALARA. CT DOSE: 884.08 mGy.cm FINDINGS: Brain parenchyma: There is age-related involutional change noting [id number] subcortical and pe riventricular microangiopathic disease. Foci of bifrontal encephalomalacia are new from 02/17/2019. Low -attenuation throughout the frontal white matter is also new from previous. There is no hemorrhage, m ass effect, or evidence of acute territorial ischemia by CT criteria. Flores-white matter differentiati on is preserved. No extra-axial fluid collection is seen. Ventricles, sulci, cisterns: Prominent secondary to involutional change. Cavum septum pellucidum is i ncidentally noted. Intracranial vasculature: There is atherosclerotic calcification of the cavernous carotid and vertebr al arteries. Calvarium: Unremarkable. Sinuses and mastoids: There is trace mucosal thickening within the maxillary antra. Moderate mucosal thickening is seen within the ethmoid sinuses and the left C1 sinus. There is subtotal opacification of the right sphenoid sinus. The mastoid air cells are well pneumatized. Orbits: The bony orbits are grossly intact. There are bilateral ocular lens implants. IMPRESSION: 1. There is no hemorrhage, mass effect, or evidence of acute territorial ischemia by CT criteria. 2. 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 Clinical correlation will be required. ACT 112: Negative or not required by law. Electronically signed by: Lowell Long M.D. 06/09/2022 3:35 PM
--- NOTE | 2022-06-09 16:16 | CT Scan Report ---
CT SCAN OF THE ABDOMEN AND PELVIS WITH IV CONTRAST CLINICAL HISTORY: Infection. COMPARISON STUDY: No priors. TECHNIQUE: Following the IV administration of 87 cc of Optiray 350, CT scan of the abdomen and pelvi s is performed from the lung bases to the proximal femora. Images are reviewed in the axial, sagittal , and coronal planes. IV contrast was administered without complication. A dose lowering technique wa s utilized adhering to the principles of ALARA. The examination is degraded by streak artifact from t he arms which could not be elevated above the abdomen. There is also motion artifact. CT DOSE: 0.00 mGy.cm FINDINGS: Lung bases: The tip of a right PICC line terminates at the cavoatrial junction. The heart is normal i n size and without pericardial effusion. The coronary arteries are densely calcified. There is a smal l right pleural effusion. Scarring/atelectasis is noted at both lung bases. A tiny hiatal hernia is n oted. The esophageal wall appears thickened. Liver: The contrast-enhanced liver is normal in size, contour, and attenuation. There is no intrahepa tic biliary ductal dilatation. The hepatic veins and portal veins are patent. A 16 mm hypodensity in the right lobe likely represents a cyst but cannot be definitely characterized due to streak and te on artifact. Gallbladder: The gallbladder is distended. There are calcified gallstones in the region of the gallbl adder neck. The gallbladder wall is thickened with surrounding inflammation and fluid. Findings are c onsistent with acute cholecystitis. Spleen: Normal in size and attenuation. Pancreas: The pancreas is moderately atrophic. Infiltration and trace fluid are seen around the pancr eas, greatest involving the pancreatic head and neck. The duct is normal in caliber. The splenic vein is patent. No organized peripancreatic fluid collection is identified. Adrenal glands: Unremarkable. Kidneys: The contrast enhanced kidneys demonstrate cortical atrophy and are without hydronephrosis. T he kidneys enhance symmetrically. An indeterminate 1.4 cm cortical hypodensity is noted in the interp olar left kidney. Abdominal vasculature: The abdominal aorta is normal in course and caliber noting advanced atheroscle rotic calcification. Bowel: Liquid stool seen throughout the colon. There is no bowel obstruction. The appendix is not vi sualized. Peritoneum: No intraperitoneal free air is seen. There is trace abdominopelvic ascites. Lymphadenopathy: None. Pelvic viscera: Evaluation of the pelvis is degraded by streak artifact from a left hip arthroplasty. The bladder is decompressed around a Aburto catheter and is not well evaluated. The prostate gland is diminutive and heterogeneous with brachytherapy implants in place. Skeletal structures: The skeletal structures are osteopenic. There is moderate to advanced lumbosacra l spondylosis. No lytic or blastic lesions are seen. A left hip arthroplasty is in place. IMPRESSION: 1. Streak and motion degraded examination. 2. Cholelithiasis with acute cholecystitis. Surgical consultation is advised. 3. Suspect concurrent pancreatitis. Correlate with clinical findings and serum amylase/lipase levels. 4. Trace abdominopelvic ascites. 5. Liquid stool is seen throughout the colon. Correlate clinically for evidence of a diarrheal illnes s. 6. Small right pleural effusion. 7. The esophageal wall appears thickened. Correlate clinically for evidence of esophagitis. This coul d be further assessed with endoscopy if warranted. 8. There is an indeterminant 1.4 cm cortical hypodensity in the interpolar left kidney. This may repr esent a simple or complex cyst but cannot be assessed on this examination due to streak and motion ar tifact. Consider nonemergent renal ultrasound in follow-up. 9. Additional findings as above. ACT 112: Negative or not required by law. Electronically signed by: Lowell Long M.D. 06/09/2022 4:13 PM
[2022-06-09 16:20] LABS: Coronavirus CoV-2 (COVID19)PCR DETECTED (NotDetected)
[2022-06-09] MEDS: LACTATED RINGER'S 1,000 ML IV SCH (16:58)
--- NOTE | 2022-06-09 16:58 | CT Scan Report ---
CT SCAN OF THE LEFT TIBIA AND FIBULA WITH IV CONTRAST CLINICAL HISTORY: Osteomyelitis of the heel. COMPARISON STUDY: No priors. TECHNIQUE: Following the IV administration of 87 cc of Optiray-350, CT scan of the left tibia and fib horacio is performed from the knee to the ankle. Images were reviewed in the axial, sagittal, and coronal planes. IV contrast was administered without complication. A dose lowering technique was utilized ad jammie to the principles of ALARA. CT DOSE: 1729.57 mGy.cm FINDINGS: The skeletal structures are osteopenic. There is no evidence of tibial or fibular fracture. No bony erosion or periostitis is seen involving the tibia or fibula to suggest osteomyelitis. The k nee and ankle joints are grossly maintained noting arthritic change. There is no knee joint effusion. There is generalized atrophy of the regional musculature. Atherosclerotic calcification is noted in the regional arteries. 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 Soft tissue viji ma and trace subcutaneous fluid is seen in the distal calf and around the ankle joint. The Achilles t endon is intact as visualized. IMPRESSION: 1. No acute bony abnormality is seen involving the left tibia or fibula. 2. Soft tissue edema of the distal calf and ankle as above. Correlate clinically for evidence of cell ulitis. ACT 112: Negative or not required by law. Dictated: 06/09/2022 3:56 PM Transcribed: 06/09/2022 4:17 PM Arielle [id number] [email or web address] Electronically signed by: Lowell Long M.D. 06/09/2022 4:56 PM
[2022-06-09] MEDS ORDERED: DAPTOmycin 325 MG in SYRINGE 0 ML IV SCH (17:00)
--- NOTE | 2022-06-09 17:17 | CT Scan Report ---
CT SCAN OF THE LEFT FOOT WITH IV CONTRAST CLINICAL HISTORY: Osteomyelitis. COMPARISON STUDY: CT scan of the left foot dated 05/30/2022. TECHNIQUE: Following the IV administration of 87 cc of Optiray 350, CT scan of the left foot is perfo rmed from the ankle to the base of the foot. Images are reviewed in the axial, sagittal, and coronal planes. IV contrast was administered without complication. A dose lowering technique was utilized adh ering to the principles of ALARA. Note that interpretation is suboptimal without plain film correlate . FINDINGS: The skeletal structures are osteopenic. No acute fracture is seen. There are large dorsal a nd plantar calcaneal enthesophytes. 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 A large cut aneous ulceration is again seen along the dorsolateral aspect of the heel with surrounding cellulitis . A tract is again seen extending from the ulcer to the heel. Again seen is a 2.3 cm focus of cortica l erosion and periostitis involving the plantar aspect of the dorsolateral calcaneus consistent with osteomyelitis. This is similar to the study performed 10 days previously. No organized fluid collecti on is seen to indicate abscess. Imaged portions of the Achilles tendon appear intact. IMPRESSION: 1. Large cutaneous ulcer/wound in the dorsolateral aspect of the heel with surrounding cellulitis. Th is is similar to previous. 2. Osteomyelitis of the left heel is unchanged from study performed 10 days previously. 3. No drainable fluid collection is seen to indicate abscess. ACT 112: Negative or not required by law. Dictated: 06/09/2022 3:51 PM Transcribed: 06/09/2022 4:15 PM Arielle [id number] [email or web address] Electronically signed by: Lowell Long M.D. 06/09/2022 5:16 PM
[2022-06-09] MEDS ORDERED: ACETAMINOPHEN 10MG/ML Custom 1,000 MG in EMPTY BAG 0 ML IV PRN (18:07)
[2022-06-09] MEDS ORDERED: ACETAMINOPHEN 1,000 MG/100 ML VIAL IV PRN (18:16)
[2022-06-09] MEDS ORDERED: REMDESIVIR 200 MG in SODIUM CHLORIDE 0.9% 210 ML IV STA (18:25)
[2022-06-09 18:41] LABS: Amylase 26 U/L (25-115); Lipase 6 U/L (11-82)
[2022-06-09] MEDS ORDERED: ACETAMINOPHEN 325 MG TAB PO PRN (19:09)
[2022-06-09] MEDS: metroNIDAZOLE 500 MG/100 ML BAG IV SCH (19:36)
--- NOTE | 2022-06-09 19:36 | Surgery Consultation ---
Date of Consultation June 09, 2022 Assessment & Plan (1) AMS (altered mental status): The patient has been admitted to the hospital service. At the present time it appears that cholecystitis may be playing a role in patient's altered mental status. We recommend proceeding as follows: Provide hydration with IV fluids Provide broad-spectrum antibiotics. The patient is receiving vancomycin, cefepime, and Flagyl Implement n.p.o. status Provide analgesics Provide antiemetics I discussed with the primary service and they did call and speak to the patient's family. The current situation was explained to them in detail by the hospitalist service and it is noted that the patient is a DNR/DNI. It is noted that the family does not want any escalation in care performed overnight. In light of the family's wishes we will continue with the plan as outlined above without escalating the patient's care. Patient was seen tomorrow by general surgery attending and further recommendations will be made. (2) Cholecystitis: History of Present Illness Attending Physician: Luna Chandler MD History of Present Illness This is an 87-year-old male who suffered a recent subarachnoid hemorrhage and has been undergoing acute inpatient rehab at [facility]. According to staff at [facility] the patient has had a waxing and waning mental status but was noted to have an acute change earlier today. Because of this acute change the patient was sent to [facility] emergency department for further evaluation. It is noteworthy mention that the patient was tested positive for COVID back in April 2022. The patient was tested for COVID since arrival to the emergency department which is noted again to be positive. I attempted to question the patient and due to his altered mental status and confusion historical data was unable to be obtained from the patient. The only thing the patient could say was that his abdomen hurt. He cannot provide any further details. I did discuss with the nursing staff and according to the reports the patient has not had any nausea or vomiting. There has not also been no reported fevers. Additional information could not be obtained. Since arrival to [facility] the patient has had labs and imaging which I independently reviewed. CBC showed white blood cell count was 21.3. Hemoglobin hematocrit were noted to be normal. Platelet count was noted to be within the normal range. His coagulation studies showed an INR of 1.2. Chemistry profile showed sodium and potassium are 138 and 3.0. BUN and creatinine were both normal. Lactic acid level was not elevated. His magnesium was noted to be normal. Total bilirubin had a slight elevation at 1.1. His transaminases and alkaline phosphatase were normal. Ammonia level was not elevated. Patient did have an elevation of his troponin at 36.3. Lipase was nonelevated. Urinalysis showed 1-5 white blood cells per high-power field with 1+ bacteria. Trace leukocyte Estrace was noted. This urinalysis was negative for nitrites. Imaging has included a chest x-ray that showed no evidence of pneumonia. The patient had a CT scan of his left foot that showed patient had a large ulcer in the dorsal lateral aspect of his left heel which was similar to previous studies. CT scan of the head was performed that showed no hemorrhage mass-effect or acute stroke. Patient did have a lower extremity CT scan that showed no acute bony abnormalities. There was some soft tissue edema in the distal calf. A CT scan of the abdomen and pelvis showed the patient had cholelithiasis with findings concerning for acute cholecystitis as the gallbladder was noted to be distended and he had calcified gallstones in the region of the gallbladder neck. The gallbladder wall was also noted to be thickened with surrounding inflammatory fluid. At the time of my interview the patient was noted to be confused but he did not appear to be in distress at this time. Allergies Allergy/AdvReac Type Severity Reaction Status Date / Time No Known Allergies Allergy Verified 06/07/22 13:40 Home Medications Medication Instructions Recorded Confirmed Type donepezil 10 mg tablet 10 mg PO DAILY 08/29/20 06/09/22 History acetaminophen 650 mg tablet 650 mg PO Q4H PRN Pain 06/03/22 06/09/22 History docusate sodium 50 mg/mL oral 100 mg PO BID 06/03/22 06/09/22 History solution enoxaparin 30 mg/0.3 mL 30 mg subcut Q12H 06/03/22 06/09/22 History subcutaneous syringe metoprolol tartrate 50 mg tablet 25 mg PO DAILY 06/03/22 06/09/22 History (Lopressor) nystatin 100,000 unit/gram topical 1 applic topical BID 06/03/22 06/09/22 History powder piperacillin-tazobactam 3.375 gram 3.375 g IV Q6H 06/03/22 06/09/22 History intravenous solution quetiapine 50 mg tablet (Seroquel) 50 mg PO HS 06/03/22 06/09/22 History valproic acid 250 mg capsule 250 mg PO BID 06/03/22 06/09/22 History vancomycin 1.5 gram intravenous 1 g IV DAILY 06/03/22 06/09/22 History solution Patient History Medical History Acute osteomyelitis of foot History of fall within past 90 days Left leg DVT Surgical History History of appendectomy History of cataract surgery History of tonsillectomy and adenoidectomy History of total right knee replacement Family History Father Prostate cancer Denies family history of Colon cancer Ovarian cancer Myocardial infarction Breast cancer Colorectal cancer Social History Smoking Status: Never smoker Hx Alcohol Use: No Hx Substance Use: No Preferred Language: Malay Visual Impairment: Limited Hearing Ability: Hard of Hearing marital status: / Current Living Situation: Alone current occupational status: retired Feels Safe at Home: Yes Childhood Exposure to Second-Hand Smoke: No Dental Care, Regularly: No Physical Activity Frequency: Does not Exercise Seatbelt Use: always Sunscreen Use: No Review of Systems Review of Systems: Unobtainable due to cognitive status Physical Exam Constitutional: well developed and well nourished; no acute distress Eyes: no conjunctival abnormality ENMT: Ears: no external ear abnormality Mouth: no oropharynx abnormality Neck: trachea midline Respiratory: normal respiratory effort; no respiratory distress and no labored breathing Gastrointestinal (Abdomen): Abdomen is moderately distended. Bowel sounds are hypoactive. Pain is noted with palpation in the right upper quadrant. Musculoskeletal: Feet are nonmottled Skin: no rashes Neurologic: Patient is noted be confused and oriented only to person. He did move his extremities but did not follow commands. Results & Data ([facility]) Vital Signs (Past 12 Hours) Vital Signs Temp Pulse Resp BP Pulse Ox O2 Del Method 06/09/22 17:50 102 H 26 H 95 Room Air 06/09/22 17:40 95 H 25 H 95 Room Air 06/09/22 17:30 95 H 24 94 Room Air 06/09/22 17:30 163/85 H Room Air 06/09/22 17:20 96 H 25 H 93 Room Air 06/09/22 17:10 110 H 26 H 93 Room Air 06/09/22 17:00 105 H 29 H 94 Room Air 06/09/22 17:00 160/98 H Room Air 06/09/22 16:50 104 H 29 H 93 Room Air 06/09/22 16:40 107 H 25 H 94 Room Air 06/09/22 16:30 106 H 29 H 94 Room Air 06/09/22 16:30 176/92 H Room Air 06/09/22 16:20 103 H 28 H 94 Room Air 06/09/22 16:10 99 H 25 H 95 Room Air 06/09/22 16:00 99 H 25 H 94 Room Air 06/09/22 16:00 161/87 H Room Air 06/09/22 15:53 99 H 26 H 94 Room Air 06/09/22 15:53 168/82 H Room Air 06/09/22 15:50 101 H 26 H 95 Room Air 06/09/22 15:40 103 H 25 H 95 Room Air 06/09/22 15:37 105 H Room Air 06/09/22 15:00 105 H 19 94 Room Air 06/09/22 15:00 169/107 H Room Air 06/09/22 14:50 100 H 26 H 93 Room Air 06/09/22 14:40 95 H 26 H 94 Room Air 06/09/22 14:30 102 H 28 H 94 Room Air 06/09/22 14:00 101 H 26 H 164/75 H 94 06/09/22 13:30 99 H 22 155/83 H 94 06/09/22 13:00 100 H 19 149/92 H 95 06/09/22 12:30 104 H 27 H 151/78 H 93 06/09/22 12:26 37.1 C 06/09/22 12:00 107 H 27 H 141/80 H 94 06/09/22 11:30 111 H 28 H 147/77 H 94 06/09/22 11:00 115 H 28 H 148/88 H 93 06/09/22 10:41 117 H 30 H 140/77 93 06/09/22 10:09 95 Room Air 06/09/22 09:40 Room Air 06/09/22 09:40 39.2 C H 134 H 32 H 149/97 H 94 Room Air PG Care Time/CCT Total # of Minutes Spent Total Time Spent with Patient: Total time spent is greater than 50% in coordination of care (as documented) at patient's floor/unit and/or counseling patient: Coding Level of Care Code 88784 Inpt Consult Level 5 Diagnoses AMS (altered mental status) R41.82 Cholecystitis K81.9
[2022-06-09] MEDS: PANTOprazole 40 MG in SYRINGE 0 ML IV SCH (20:47)
[2022-06-09] MEDS: VALPROIC ACID SOLN 250 MG/5 ML UDC PO SCH (20:48)
[2022-06-09] MEDS: CEFEPIME 2,000 MG in SYRINGE 0 ML IV SCH (23:06)
--- NOTE | 2022-06-09 23:48 | Orthopedic Consultation ---
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 Recommend vascular consult to asses healing potential of the LLE and if any by-pass or stenting needed. If healing potential poor recommend vascular preform amputation if family agreeable. Will discuss with Dr. Hahn Continue care per primary service. Continue IV Antibiotics. Present on Admission?: Yes History of Present Illness Reason for Consultation: Left heel osteomyletis Requesting Physician: [facility] Attending Physician: Luna Chandler MD History of Present Illness Patient is an 87 yo male who has been admitted for sepsis. He has been at [facility] with known left heel osteomyelitis and has an appointment to see Dr. Hahn 06/14/2022. 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 Patient is on IV antibiotics. Patient is DNI/DNR. Consult to [facility] to evaluate left foot osteomyelitis. History obtained from the chart due to patient mental status. Allergies Allergy/AdvReac Type Severity Reaction Status Date / Time No Known Allergies Allergy Verified 06/07/22 13:40 Home Medications Medication Instructions Recorded Confirmed Type donepezil 10 mg tablet 10 mg PO DAILY 08/29/20 06/09/22 History acetaminophen 650 mg tablet 650 mg PO Q4H PRN Pain 06/03/22 06/09/22 History docusate sodium 50 mg/mL oral 100 mg PO BID 06/03/22 06/09/22 History solution enoxaparin 30 mg/0.3 mL 30 mg subcut Q12H 06/03/22 06/09/22 History subcutaneous syringe metoprolol tartrate 50 mg tablet 25 mg PO DAILY 06/03/22 06/09/22 History (Lopressor) nystatin 100,000 unit/gram topical 1 applic topical BID 06/03/22 06/09/22 History powder piperacillin-tazobactam 3.375 gram 3.375 g IV Q6H 06/03/22 06/09/22 History intravenous solution quetiapine 50 mg tablet (Seroquel) 50 mg PO HS 06/03/22 06/09/22 History valproic acid 250 mg capsule 250 mg PO BID 06/03/22 06/09/22 History vancomycin 1.5 gram intravenous 1 g IV DAILY 06/03/22 06/09/22 History solution Patient History Medical History (Updated 06/09/22 @ 20:50 by Luna Chandler MD) Acute osteomyelitis of foot Chronic gastroesophageal reflux disease Hearing loss History of fall within past 90 days HTN (hypertension) Hx of subdural hematoma Left leg DVT Left leg DVT Memory loss Prostate cancer Somatic dysfunction of lower extremities Unilateral primary osteoarthritis, unspecified knee Surgical History History of appendectomy History of cataract surgery History of tonsillectomy and adenoidectomy History of total right knee replacement Family History Father Prostate cancer Denies family history of Colon cancer Ovarian cancer Myocardial infarction Breast cancer Colorectal cancer Social History Smoking Status: Never smoker Hx Alcohol Use: No Hx Substance Use: No Preferred Language: Kazakh Visual Impairment: Limited Hearing Ability: Hard of Hearing marital status: / Current Living Situation: Alone current occupational status: retired Feels Safe at Home: Yes Childhood Exposure to Second-Hand Smoke: No Dental Care, Regularly: No Physical Activity Frequency: Does not Exercise Seatbelt Use: always Sunscreen Use: No Review of Systems Review of Systems: Unobtainable due to cognitive status Physical Exam Physical Exam: LLE: Unable to assess motor or sensation due to patient cognition. 2+ PT pulse, barely perceptible pulse DP pulse. Silver dollar size necrotic wound dorsal lateral heel. Discoloration and swelling of the calf. Results & Data ([facility]) Vital Signs (Past 12 Hours) Vital Signs Temp Pulse Pulse Resp BP BP Pulse Ox 06/09/22 23:09 36.8 C 104 H 22 139/100 95 06/09/22 19:39 37.1 C 20 184/93 H 97 06/09/22 17:50 102 H 26 H 95 06/09/22 17:40 95 H 25 H 95 06/09/22 17:30 95 H 24 94 06/09/22 17:30 163/85 H 06/09/22 17:20 96 H 25 H 93 06/09/22 17:10 110 H 26 H 93 06/09/22 17:00 105 H 29 H 94 06/09/22 17:00 160/98 H 06/09/22 16:50 104 H 29 H 93 06/09/22 16:40 107 H 25 H 94 06/09/22 16:30 106 H 29 H 94 06/09/22 16:30 176/92 H 06/09/22 16:20 103 H 28 H 94 06/09/22 16:10 99 H 25 H 95 06/09/22 16:00 99 H 25 H 94 06/09/22 16:00 161/87 H 06/09/22 15:53 99 H 26 H 94 06/09/22 15:53 168/82 H 06/09/22 15:50 101 H 26 H 95 06/09/22 15:40 103 H 25 H 95 06/09/22 15:37 105 H 06/09/22 15:00 105 H 19 94 06/09/22 15:00 169/107 H 06/09/22 14:50 100 H 26 H 93 06/09/22 14:40 95 H 26 H 94 06/09/22 14:30 102 H 28 H 94 06/09/22 14:00 101 H 26 H 164/75 H 94 06/09/22 13:30 99 H 22 155/83 H 94 06/09/22 13:00 100 H 19 149/92 H 95 06/09/22 12:30 104 H 27 H 151/78 H 93 06/09/22 12:26 37.1 C 06/09/22 12:00 107 H 27 H 141/80 H 94 O2 Del Method 06/09/22 23:09 Room Air 06/09/22 19:39 Room Air 06/09/22 17:50 Room Air 06/09/22 17:40 Room Air 06/09/22 17:30 Room Air 06/09/22 17:30 Room Air 06/09/22 17:20 Room Air 06/09/22 17:10 Room Air 06/09/22 17:00 Room Air 06/09/22 17:00 Room Air 06/09/22 16:50 Room Air 06/09/22 16:40 Room Air 06/09/22 16:30 Room Air 06/09/22 16:30 Room Air 06/09/22 16:20 Room Air 06/09/22 16:10 Room Air 06/09/22 16:00 Room Air 06/09/22 16:00 Room Air 06/09/22 15:53 Room Air 06/09/22 15:53 Room Air 06/09/22 15:50 Room Air 06/09/22 15:40 Room Air 06/09/22 15:37 Room Air 06/09/22 15:00 Room Air 06/09/22 15:00 Room Air 06/09/22 14:50 Room Air 06/09/22 14:40 Room Air 06/09/22 14:30 Room Air 06/09/22 14:00 06/09/22 13:30 06/09/22 13:00 06/09/22 12:30 06/09/22 12:26 06/09/22 12:00 Diagnostic Findings Laboratory Results WBC 21.38 K/ul (4.8-10.8) H 06/09/22 09:57 RBC 4.18 M/uL (4.63-6.08) L 06/09/22 09:57 Hgb 14.2 g/dl (14.0-18.0) 06/09/22 09:57 Hct 40.5 % (40.1-51.0) 06/09/22 09:57 MCV 96.9 fL (80.0-100.0) 06/09/22 09:57 MCH 34.0 pg (25.0-34.0) 06/09/22 09:57 MCHC 35.1 g/dL (32.0-36.0) 06/09/22 09:57 RDW Std Deviation 60.6 fL (36.4-46.3) H 06/09/22 09:57 RDW Coeff of Emmy 16.9 % (11.5-14.5) H 06/09/22 09:57 Plt Count 248 K/uL (130-400) 06/09/22 09:57 MPV 10.6 fL (9.4-12.4) 06/09/22 09:57 Immature Gran % (Auto) 1.0 % 06/09/22 09:57 Neut % (Auto) 88.5 % 06/09/22 09:57 Lymph % (Auto) 3.6 % 06/09/22 09:57 Dale % (Auto) 6.7 % 06/09/22 09:57 Eos % (Auto) 0.0 % 06/09/22 09:57 Baso % (Auto) 0.2 % 06/09/22 09:57 Neut # (Auto) 18.93 K/uL (1.4-6.5) H 06/09/22 09:57 Lymph # (Auto) 0.76 K/uL (1.2-3.4) L 06/09/22 09:57 Dale # (Auto) 1.43 K/uL (0.24-0.82) H 06/09/22 09:57 Eos # (Auto) 0.00 K/uL (0-0.50) 06/09/22 09:57 Baso # (Auto) 0.04 K/uL (0-0.2) 06/09/22 09:57 Immature Gran # (Auto) 0.22 K/uL (0.00-0.02) H 06/09/22 09:57 PT 12.4 Seconds (9.0-12.0) H 06/09/22 09:57 INR 1.2 (0.9-1.1) H 06/09/22 09:57 APTT 35.3 Seconds (21.0-31.0) H 06/09/22 09:57 PTT Ratio 1.3 06/09/22 09:57 Sodium 138 mmol/L (136-145) 06/09/22 09:57 Potassium 3.6 mmol/L (3.5-5.1) 06/09/22 20:15 Chloride 107 mmol/L (98-107) 06/09/22 09:57 Carbon Dioxide 23 mmol/L (21-32) 06/09/22 09:57 Anion Gap 8 (3-11) 06/09/22 09:57 BUN 11 mg/dl (6-23) 06/09/22 09:57 Creatinine 0.99 mg/dl (0.6-1.4) 06/09/22 09:57 Est Cr Clr Drug Dosing 60.4 ml/min 06/09/22 09:57 Est GFR ( Amer) 79.6 ml/min 06/09/22 09:57 Est GFR (Non-Af Amer) 68.7 ml/min 06/09/22 09:57 BUN/Creatinine Ratio 11.1 (10-20) 06/09/22 09:57 Glucose 145 mg/dl (70-99(Fasting)) H 06/09/22 09:57 POC Glucose 171 mg/dl (70-99) H 06/09/22 10:16 Lactate 1.5 mmol/L (0.4-2.0) 06/09/22 11:42 Calcium 8.8 mg/dl (8.5-10.1) 06/09/22 09:57 Magnesium 2.0 mg/dl (1.7-2.4) 06/09/22 09:57 Total Bilirubin 1.1 mg/dl (0.2-1.0) H 06/09/22 09:57 AST 17 U/L (13-39) 06/09/22 09:57 ALT 17 U/L (7-52) 06/09/22 09:57 Alkaline Phosphatase 66 U/L (34-104) 06/09/22 09:57 Ammonia 33.0 umol/L (18-72) 06/09/22 09:57 Troponin I High Sens 36.3 pg/ml (0-20) H 06/09/22 13:54 Total Protein 6.7 gm/dl (6.0-8.3) 06/09/22 09:57 Albumin 2.8 gm/dl (3.4-5.0) L 06/09/22 09:57 Globulin 3.9 gm/dl (2.5-4.0) 06/09/22 09:57 Albumin/Globulin Ratio 0.7 (0.9-2) L 06/09/22 09:57 Amylase 26 U/L (25-115) 06/09/22 13:54 Lipase 6 U/L (11-82) L 06/09/22 13:54 Procalcitonin 0.62 ng/ml (0-0.5) H 06/09/22 09:57 TSH 3.710 uIu/ml (0.300-4.500) 06/09/22 09:57 Urine Color Dark Yellow 06/09/22 11:04 Urine Appearance Cloudy (Clear) A 06/09/22 11:04 Urine pH 5.0 (4.5-7.5) 06/09/22 11:04 Ur Specific [place] 1.038 (1.000-1.030) H 06/09/22 11:04 Urine Protein 2+ (Negative) H 06/09/22 11:04 Urine Glucose (UA) Trace (Negative) H 06/09/22 11:04 Urine Ketones Trace (Negative) H 06/09/22 11:04 Urine Blood Negative (Negative) 06/09/22 11:04 Urine Nitrite Negative (Negative) 06/09/22 11:04 Urine Bilirubin 1+ (Negative) H 06/09/22 11:04 Urine Urobilinogen Negative (Negative) 06/09/22 11:04 Ur Leukocyte Esterase Trace (Negative) H 06/09/22 11:04 Urine WBC (Auto) 1-5 /hpf (0-5) 06/09/22 11:04 Urine RBC (Auto) 0-4 /hpf (0-4) 06/09/22 11:04 U Hyaline Cast (Auto) 1-5 /lpf (0-5) 06/09/22 11:04 U Epithel Cells (Auto) 20-30 /lpf (0-5) H 06/09/22 11:04 Urine Bacteria (Auto) 1+ (Negative) H 06/09/22 11:04 Amorphous Sediment Present (None Prsent) A 06/09/22 11:04 Urine Yeast Not Reportable 06/09/22 11:04 Urine Opiates Screen Neg (Neg) 06/09/22 11:04 Ur Methadone, Qual Neg (Neg) 06/09/22 11:04 Urine Barbiturates Neg (Neg) 06/09/22 11:04 Valproic Acid 15 mcg/ml (50-100) L 06/09/22 09:57 Ur Phencyclidine (PCP) Neg (Neg) 06/09/22 11:04 U Amphetamin/Meth Scrn Neg (Neg) 06/09/22 11:04 MDMA (Ecstasy) Screen Neg (Neg) 06/09/22 11:04 U Benzodiazepines Scrn Neg (Neg) 06/09/22 11:04 Ur Cocaine Metabolite Neg (Neg) 06/09/22 11:04 U Marijuana (THC) Screen Neg (Neg) 06/09/22 11:04 Adenovirus (PCR) Not Detected (NotDetected) 06/09/22 14:16 B. pertussis DNA (PCR) Not Detected (NotDetected) 06/09/22 14:16 B.parapertussis DNA PCR Not Detected (NotDetected) 06/09/22 14:16 C. pneumoniae DNA (PCR) Not Detected (NotDetected) 06/09/22 14:16 Coronavirus OC43 (PCR) Not Detected (NotDetected) 06/09/22 14:16 Coronavirus HKU1 (PCR) Not Detected (NotDetected) 06/09/22 14:16 Coronavirus 229E (PCR) Not Detected (NotDetected) 06/09/22 14:16 SARS-CoV-2 (PCR) DETECTED (NotDetected) A* 06/09/22 14:16 Coronavirus NL63 (PCR) Not Detected (NotDetected) 06/09/22 14:16 Human Metapneumovir PCR Not Detected (NotDetected) 06/09/22 14:16 Influenza Type A (PCR) Not Detected (NotDetected) 06/09/22 14:16 Influenza Type B (PCR) Not Detected (NotDetected) 06/09/22 14:16 M. pneumoniae (PCR) Not Detected (NotDetected) 06/09/22 14:16 Parainfluenza 1 (PCR) Not Detected (NotDetected) 06/09/22 14:16 Parainfluenza 2 (PCR) Not Detected (NotDetected) 06/09/22 14:16 Parainfluenza 3 (PCR) Not Detected (NotDetected) 06/09/22 14:16 Parainfluenza 4 (PCR) Not Detected (NotDetected) 06/09/22 14:16 RSV (PCR) Not Detected (NotDetected) 06/09/22 14:16 Entero/Rhino (PCR) Not Detected (NotDetected) 06/09/22 14:16 Impressions Chest X-Ray 06/09/22 09:37 SINGLE VIEW CHEST CLINICAL HISTORY: Change in mental status. FINDINGS: An AP, portable, upright chest radiograph is compared to study dated 06/03/2022. The examination is degraded by portable technique and patient rotation. A right PICC line is unchanged in position. The cardiomediastinal silhouette is top normal for projection. There is elevation of the right hemidiaphragm with bibasilar scarring/atelectasis. No airspace consolidation or large pleural effusion is identified. No pneumothorax is seen. The skeletal structures are osteopenic. The bony thorax is grossly intact. Arthritic change is seen in the shoulders. IMPRESSION: No acute cardiopulmonary abnormality. ACT 112: Negative or not required by law. Electronically signed by: Lowell Long M.D. 06/09/2022 10:48 AM Abdomen/Pelvis CT 06/09/22 14:27 CT SCAN OF THE ABDOMEN AND PELVIS WITH IV CONTRAST CLINICAL HISTORY: Infection. COMPARISON STUDY: No priors. TECHNIQUE: Following the IV administration of 87 cc of Optiray 350, CT scan of the abdomen and pelvis is performed from the lung bases to the proximal femora. Images are reviewed in the axial, sagittal, and coronal planes. IV contrast was administered without complication. A dose lowering technique was utilized adhering to the principles of ALARA. The examination is degraded by streak artifact from the arms which could not be elevated above the abdomen. There is also motion artifact. CT DOSE: 0.00 mGy.cm FINDINGS: Lung bases: The tip of a right PICC line terminates at the cavoatrial junction. The heart is normal in size and without pericardial effusion. The coronary arteries are densely calcified. There is a small right pleural effusion. Scarring/atelectasis is noted at both lung bases. A tiny hiatal hernia is noted. The esophageal wall appears thickened. Liver: The contrast-enhanced liver is normal in size, contour, and attenuation. There is no intrahepatic biliary ductal dilatation. The hepatic veins and portal veins are patent. A 16 mm hypodensity in the right lobe likely represents a cyst but cannot be definitely characterized due to streak and motion artifact. Gallbladder: The gallbladder is distended. There are calcified gallstones in the region of the gallbladder neck. The gallbladder wall is thickened with surrounding inflammation and fluid. Findings are consistent with acute cholecystitis. Spleen: Normal in size and attenuation. Pancreas: The pancreas is moderately atrophic. Infiltration and trace fluid are seen around the pancreas, greatest involving the pancreatic head and neck. The duct is normal in caliber. The splenic vein is patent. No organized peripancreatic fluid collection is identified. Adrenal glands: Unremarkable. Kidneys: The contrast enhanced kidneys demonstrate cortical atrophy and are without hydronephrosis. The kidneys enhance symmetrically. An indeterminate 1.4 cm cortical hypodensity is noted in the interpolar left kidney. Abdominal vasculature: The abdominal aorta is normal in course and caliber noting advanced atherosclerotic calcification. Bowel: Liquid stool seen throughout the colon. There is no bowel obstruction. The appendix is not visualized. Peritoneum: No intraperitoneal free air is seen. There is trace abdominopelvic ascites. Lymphadenopathy: None. Pelvic viscera: Evaluation of the pelvis is degraded by streak artifact from a left hip arthroplasty. The bladder is decompressed around a Aburto catheter and is not well evaluated. The prostate gland is diminutive and heterogeneous with brachytherapy implants in place. Skeletal structures: The skeletal structures are osteopenic. There is moderate to advanced lumbosacral spondylosis. No lytic or blastic lesions are seen. A left hip arthroplasty is in place. IMPRESSION: 1. Streak and motion degraded examination. 2. Cholelithiasis with acute cholecystitis. Surgical consultation is advised. 3. Suspect concurrent pancreatitis. Correlate with clinical findings and serum amylase/lipase levels. 4. Trace abdominopelvic ascites. 5. Liquid stool is seen throughout the colon. Correlate clinically for evidence of a diarrheal illness. 6. Small right pleural effusion. 7. The esophageal wall appears thickened. Correlate clinically for evidence of esophagitis. This could be further assessed with endoscopy if warranted. 8. There is an indeterminant 1.4 cm cortical hypodensity in the interpolar left kidney. This may represent a simple or complex cyst but cannot be assessed on this examination due to streak and motion artifact. Consider nonemergent renal ultrasound in follow-up. 9. Additional findings as above. ACT 112: Negative or not required by law. Electronically signed by: Lowell Long M.D. 06/09/2022 4:[address] 06/09/22 14:27 CT SCAN OF THE LEFT FOOT WITH IV CONTRAST CLINICAL HISTORY: Osteomyelitis. COMPARISON STUDY: CT scan of the left foot dated 05/30/2022. TECHNIQUE: Following the IV administration of 87 cc of Optiray 350, CT scan of the left foot is performed from the ankle to the base of the foot. Images are reviewed in the axial, sagittal, and coronal planes. IV contrast was administered without complication. A dose lowering technique was utilized adhering to the principles of ALARA. Note that interpretation is suboptimal without plain film correlate. FINDINGS: The skeletal structures are osteopenic. No acute fracture is seen. There are large dorsal and plantar calcaneal enthesophytes. Osteoarthritic morley e is seen throughout the midfoot. A large cutaneous ulceration is again seen along the dorsolateral aspect of the heel with surrounding cellulitis. A tract is again seen extending from the ulcer to the heel. Again seen is a 2.3 cm focus of cortical erosion and periostitis involving the plantar aspect of the dorsolateral calcaneus consistent with osteomyelitis. This is similar to the study performed 10 days previously. No organized fluid collection is seen to indicate abscess. Imaged portions of the Achilles tendon appear intact. IMPRESSION: 1. Large cutaneous ulcer/wound in the dorsolateral aspect of the heel with surrounding cellulitis. This is similar to previous. 2. Osteomyelitis of the left heel is unchanged from study performed 10 days previously. 3. No drainable fluid collection is seen to indicate abscess. ACT 112: Negative or not required by law. Dictated: 06/09/2022 3:51 PM Transcribed: 06/09/2022 4:15 PM [facility] [id number] [email or web address] Electronically signed by: Lowell Long M.D. 06/09/2022 5:[address] 06/09/22 14:27 CT SCAN OF THE BRAIN WITHOUT IV CONTRAST CLINICAL HISTORY: Change in mental status. COMPARISON STUDY: CT of the brain dated 02/17/2019. TECHNIQUE: Unenhanced axial CT scan of the brain is performed from the vertex to the skull base. A dose lowering technique was utilized adhering to the principles of ALARA. CT DOSE: 884.08 mGy.cm FINDINGS: Brain parenchyma: There is age-related involutional change noting [id number] subcortical and periventricular microangiopathic disease. Foci of bifrontal encephalomalacia are new from 02/17/2019. Low-attenuation throughout the frontal white matter is also new from previous. There is no hemorrhage, mass effect, or evidence of acute territorial ischemia by CT criteria. Flores-white matter differentiation is preserved. No extra-axial fluid collection is seen. Ventricles, sulci, cisterns: Prominent secondary to involutional change. Cavum septum pellucidum is incidentally noted. Intracranial vasculature: There is atherosclerotic calcification of the cavernous carotid and vertebral arteries. Calvarium: Unremarkable. Sinuses and mastoids: There is trace mucosal thickening within the maxillary antra. Moderate mucosal thickening is seen within the ethmoid sinuses and the left C1 sinus. There is subtotal opacification of the right sphenoid sinus. The mastoid air cells are well pneumatized. Orbits: The bony orbits are grossly intact. There are bilateral ocular lens implants. IMPRESSION: 1. There is no hemorrhage, mass effect, or evidence of acute territorial ischemia by CT criteria. 2. 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 Clinical correlation will be required. ACT 112: Negative or not required by law. Electronically signed by: Lowell Long M.D. 06/09/2022 3:[address] 06/09/22 15:17 CT SCAN OF THE LEFT TIBIA AND FIBULA WITH IV CONTRAST CLINICAL HISTORY: Osteomyelitis of the heel. COMPARISON STUDY: No priors. TECHNIQUE: Following the IV administration of 87 cc of Optiray-350, CT scan of the left tibia and fibula is performed from the knee to the ankle. Images were reviewed in the axial, sagittal, and coronal planes. IV contrast was administered without complication. A dose lowering technique was utilized adhering to the principles of ALARA. CT DOSE: 1729.57 mGy.cm FINDINGS: The skeletal structures are osteopenic. There is no evidence of tibial or fibular fracture. No bony erosion or periostitis is seen involving the tibia or fibula to suggest osteomyelitis. The knee and ankle joints are grossly maintained noting arthritic change. There is no knee joint effusion. There is generalized atrophy of the regional musculature. Atherosclerotic calcification is noted in the regional arteries. 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 Soft tissue edema and trace subcutaneous fluid is seen in the distal calf and around the ankle joint. The Achilles tendon is intact as visualized. IMPRESSION: 1. No acute bony abnormality is seen involving the left tibia or fibula. 2. Soft tissue edema of the distal calf and ankle as above. Correlate clinically for evidence of cellulitis. ACT 112: Negative or not required by law. Dictated: 06/09/2022 3:56 PM Transcribed: 06/09/2022 4:17 PM [facility] [id number] [email or web address] Electronically signed by: Lowell Long M.D. 06/09/2022 4:56 PM
[2022-06-10] MEDS: metroNIDAZOLE 500 MG/100 ML BAG IV SCH ×3 (03:27→16:09)
[2022-06-10] MEDS: LACTATED RINGER'S 1,000 ML IV SCH ×2 (03:28→15:52)
[2022-06-10] MEDS: METOPROLOL TARTRATE 25 MG TAB PO SCH (08:53)
[2022-06-10] MEDS: VALPROIC ACID SOLN 250 MG/5 ML UDC PO SCH ×2 (08:53→21:51)
[2022-06-10] MEDS: DONEPEZIL HCL 10 MG TAB PO SCH (08:53)
[2022-06-10] MEDS: PANTOprazole 40 MG in SYRINGE 0 ML IV SCH ×2 (08:53→21:51)
[2022-06-10] MEDS: CEFEPIME 2,000 MG in SYRINGE 0 ML IV SCH ×2 (09:07→21:56)
[2022-06-10 10:22] LABS: Basophils # (auto) 0.05 K/uL (0-0.2); Basophils % (auto) 0.3 %; Eosinophils # (auto) 0.02 K/uL (0-0.50); Eosinophils % (auto) 0.1 %; Hematocrit (blood only) 35.4 % (40.1-51.0); Hemoglobin 12.1 g/dl (14.0-18.0); Immature Granulocytes # (auto) 0.12 K/uL (0.00-0.02); Immature Granulocytes % (auto) 0.7 %; Lymphocytes # (auto) 0.98 K/uL (1.2-3.4); Lymphocytes % (auto) 5.8 %; Mean Corpuscular Hemoglobin 33.6 pg (25.0-34.0); Mean Corpuscular Hgb Conc 34.2 g/dL (32.0-36.0); Mean Corpuscular Volume 98.3 fL (80.0-100.0); Monocytes # (auto) 1.12 K/uL (0.24-0.82); Monocytes % (auto) 6.7 %; Neutrophils # (auto) 14.47 K/uL (1.4-6.5); Neutrophils % (auto) 86.4 %; Platelet Count 223 K/uL (130-400); RDW Coefficient of Variation 16.9 % (11.5-14.5); RDW Standard Deviation 61.5 fL (36.4-46.3); White Blood Count 16.76 K/ul (4.8-10.8)
[2022-06-10 10:52] LABS: Albumin Globulin Ratio 0.8 (0.9-2); Albumin Level 2.5 gm/dl (3.4-5.0); BUN Creatinine Ratio 16.1 (10-20); Bilirubin,Total 0.8 mg/dl (0.2-1.0); Calcium 8.1 mg/dl (8.5-10.1); Creatinine Clr Calc Pharmacy 96.5 ml/min; Est GFR (African American) 104.1 ml/min; Est GFR (Non-African American) 89.8 ml/min; Globulin 3.3 gm/dl (2.5-4.0); Potassium 3.3 mmol/L (3.5-5.1); Total Protein 5.8 gm/dl (6.0-8.3)
--- NOTE | 2022-06-10 14:53 | Ultrasound Report ---
LEFT LOWER EXTREMITY ARTERIAL DOPPLER ULTRASOUND CLINICAL HISTORY: Left heel osteomyelitis. COMPARISON STUDY: No previous studies for comparison. TECHNIQUE: Color and duplex Doppler sonography of the left lower extremity was performed. FINDINGS: Ankle to brachial indices could not be obtained in this patient. Toe waveforms are dampened , right greater than left. There is no evidence for inflow disease. Moderate atherosclerotic plaque w ithin the left lower extremity is present. There is biphasic flow within the left common femoral, sup erficial femoral and popliteal arteries. No elevated velocities within these vessels were noted. Note is made of biphasic flow within the proximal left anterior tibial artery. There is no flow within th e remainder of the left anterior tibial artery. There is trace flow within the left dorsalis pedis. B iphasic flow within the left posterior tibial artery is noted. No flow is identified within the left peroneal artery. IMPRESSION: 1. Moderate atherosclerotic plaque within the left lower extremity. No elevated velocities identified . 2. Suspected occlusion of the mid to distal left anterior tibial artery with minimal reconstitution w ithin the dorsalis pedis. Probable occlusion of the left peroneal artery. Patent left posterior tibia l artery. ACT 112: Negative or not required by law. Electronically signed by: Silverio Dahl M.D. 06/10/2022 2:52 PM
[2022-06-10] MEDS: DAPTOmycin 500 MG in SYRINGE 0 ML IV SCH (17:25)
[2022-06-10] MEDS ORDERED: REMDESIVIR 100mg: Days 2-5 IV SCH (20:00)
--- NOTE | 2022-06-10 21:12 | Communication Note ---
Date of Service: June 10, 2022 adding mucinex, chest percussion therapy per family request for inability to bring up sputum. will also add duoneb and hypertonic saline neb. orders to start in AM as patient is sleeping notified by nursing that family requesting family meeting with dayshift tomorrow
--- NOTE | 2022-06-10 21:50 | Electrocardiogram Report ---
Test Reason : Blood Pressure : / mmHG Vent. Rate : 133 BPM Atrial Rate : 133 BPM P-R Int : 128 ms QRS Dur : 086 ms QT Int : 280 ms P-R-T Axes : 033 -15 013 degrees QTc Int : 417 ms Sinus tachycardia Inferior infarct , age undetermined Nonspecific ST and T wave abnormality Abnormal ECG When compared with ECG of 05-FEB-2019 18:29, Vent. rate has increased BY [address] and T wave abnormality is now Present Confirmed by Hesham Alfonso ([id number]) on 06/10/2022 9:50:20 PM Referred By: REFERRED SELF Confirmed By:Hesham Alfonso
--- NOTE | 2022-06-10 22:20 | Hospitalist Progress Note ---
Date of Service June 10, 2022 Assessment & Plan (1) Sepsis: Plan: -Admit to med/tele -Patient is currently febrile, hemodynamically stable, stable on RA, and tachycardic in the low 100's -AT this time the source of the patient's infection is unknown, patient jayce martin has left heel OM but has been on Vancomycin/Zosyn at [facility] for approximally 10 days, per staff, he has pulled out multiple PICC lines over his stay, the one he currently has placed was placed on 06/07/22, patient has significant leukocytosis with left shift and procal of 0.6. -Will obtain CT of the abdomen/Pelvis w/wo contrast for further evaluation of possible sources of infection, will also get a CT of the left foot/ankle to further evaluate known OM -For now will switch patient to Daptomycin/Cefepime since he was febrile on Vanc/Zosyn, will also start flagyl to cover intra-abdominal sources until workup is complete -Had ED order Biofire for further viral evaluation -Multiple blood culture sets have been obtained, confirmed with nursing staff that one set was obtained from current PICC site, if biofire is negative and becomes bacteremic, would take current PICC out -Placed [facility] ortho consult for evaluation of left heel OM -Continue to monitor infectious workup and tailor antibiotics to results -Will continue with IV fluid resuscitation for now with LR's for 2 more bags as he appears dehydrated -Monitor AM CBC, CMP, Mag On 06/10, patient conitnues to be confused. He has multiple comorbities, given his poor quality of life. It appears his family is deciding against invasive procedures. For the meantime, pau keep NPO, contiue conservative management and will monitor his bloodwork. awaiting workup by vascular surgeon for definitive treatment of his osteomyelitis. (2) Altered mental status: Plan: Acute encephalopathy -Baseline appears to be somewhat interactive when he is awake, [facility] staff said that he had an abrupt change this morning -Will obtain STAT CT head to rule out acute changes -Likely his acute infection and dehydration are also playing a role (3) Prostate cancer: Plan: -In remission and not on current therapy (4) Memory loss: Plan: -Contique Aricept (5) Acute osteomyelitis of left foot: Plan: -See sepsis (6) Hx of subdural hematoma: Plan: -Per [facility], had been cleared by Neurosurgery for chemical DVT PPX -FU with CT head to rule out acute changes (7) HTN (hypertension): Plan: -Will continue metoprolol for now as he is hemodynamically stable (8) Hypokalemia: Plan: -Noted to be 2.9 today, likely from recent poor oral intake -Giving 3 doses of 10 meq KCL riders then will continue with LR's -Will order evening potassium to FU, mag has been stable Admission and Anticipated Discharge Date Admission Date: June 09, 2022 Subjective 87 yo male is pleasantly confused. Review of Systems Review of Systems: All systems reviewed & are unremarkable except as noted in HPI & below Physical Exam Physical Exam: General:In no acute distress, stated age, chronically ill- appearing HEENT:Normocephalic, atraumatic, no scleral icterus, pupils around round, symmetrical, and reactive to light,Drymucus membranes, trachea midline, no thyromegaly Chest/Pulm:No respiratory distress, symmetrical chest expansion, scattered rhonchi noted in the right upper lung field, left lung is CTA Cardiac:tachycardic rate, regular rhythm, no murmurs noted Abdomen:Negative for ascites and bruising, normoactive bowel sounds, soft, no grimacing or guarding from patient during abdominal palpation :Aburto catheter placed by ED staff is in place, currently draining a small amount of dark urine Musculoskeletal:Patient with chronic left heel wound, currently draining pus, left wilson erythema noted ass well, no acute trauma noted Extremities:Radial, dorsalis pedis, and posterior tibial pulses are intact and symmetrical, no edema noted in the BL LE's, patient with PICC line placed in the LUE is without signs of infection Skin:Warm, dry, no rashes , lesions, or scars noted Neuro: does not follow commands at the current time, pupils are round, symmetrical and reactive to light, no other focal defects on exam, patient will not follow commands for other neurologic testing Psych:No acute distress, lethargic, will not follow commands Results & Data Results & Data ([facility]) Vital Signs (Past 12 Hours) Vital Signs Temp Pulse Pulse Resp BP Pulse Ox O2 Del Method 06/10/22 20:00 36.6 C 92 H 20 135/78 95 Room Air 06/10/22 17:45 87 06/10/22 15:58 86 17 149/77 H 96 Room Air 06/10/22 11:47 153/88 H PG Care Time/CCT Total # of Minutes Spent Total Time Spent with Patient: Total time spent is greater than 50% in coordination of care (as documented) at patient's floor/unit and/or counseling patient: Coding Level of Care Code 75367 Subseq Hosp Care Lvl 2 Diagnoses Sepsis A41.9 Altered mental status R41.82 Prostate cancer C61 Memory loss R41.3 Acute osteomyelitis of left foot M86.172 Hx of subdural hematoma Z86.79 HTN (hypertension) I10 Hypokalemia E87.6 Time Spent (min) 25
[2022-06-10] MEDS: guaiFENesin 600 MG TABCR PO SCH (22:40)
[2022-06-11] MEDS: metroNIDAZOLE 500 MG/100 ML BAG IV SCH ×3 (02:04→16:33)
[2022-06-11] MEDS: LACTATED RINGER'S 1,000 ML IV SCH ×2 (05:06→16:36)
[2022-06-11] MEDS: ALBUT/IPRATROP 3MG/0.5MG NEB 3 ML VIAL NEB SCH ×2 (07:23→20:42)
[2022-06-11 07:24] LABS: Basophils # (auto) 0.03 K/uL (0-0.2); Basophils % (auto) 0.2 %; Eosinophils # (auto) 0.07 K/uL (0-0.50); Eosinophils % (auto) 0.6 %; Hemoglobin 11.7 g/dl (14.0-18.0); Immature Granulocytes # (auto) 0.06 K/uL (0.00-0.02); Immature Granulocytes % (auto) 0.5 %; Lymphocytes # (auto) 1.06 K/uL (1.2-3.4); Lymphocytes % (auto) 8.6 %; Mean Corpuscular Hemoglobin 33.6 pg (25.0-34.0); Mean Corpuscular Hgb Conc 34.4 g/dL (32.0-36.0); Mean Corpuscular Volume 97.7 fL (80.0-100.0); Mean Platelet Volume 10.7 fL (9.4-12.4); Monocytes # (auto) 0.78 K/uL (0.24-0.82); Monocytes % (auto) 6.3 %; Neutrophils # (auto) 10.37 K/uL (1.4-6.5); Neutrophils % (auto) 83.8 %; Platelet Count 256 K/uL (130-400); RDW Coefficient of Variation 16.8 % (11.5-14.5); RDW Standard Deviation 60.3 fL (36.4-46.3); Red Blood Count 3.48 M/uL (4.63-6.08); White Blood Count 12.37 K/ul (4.8-10.8)
[2022-06-11] MEDS: SODIUM CHLOR 7% 4 ML NEB NEB SCH ×2 (07:24→20:42)
[2022-06-11] MEDS: PANTOprazole 40 MG in SYRINGE 0 ML IV SCH ×2 (07:32→20:59)
[2022-06-11 07:50] LABS: Albumin Globulin Ratio 0.8 (0.9-2); Albumin Level 2.5 gm/dl (3.4-5.0); BUN Creatinine Ratio 18.8 (10-20); Creatinine Clr Calc Pharmacy 93.4 ml/min; Est GFR (African American) 102.8 ml/min; Est GFR (Non-African American) 88.7 ml/min; Globulin 3.2 gm/dl (2.5-4.0); Potassium 2.9 mmol/L (3.5-5.1); Total Protein 5.7 gm/dl (6.0-8.3)
[2022-06-11] MEDS: VALPROIC ACID SOLN 250 MG/5 ML UDC PO SCH ×2 (08:38→20:59)
[2022-06-11] MEDS: DONEPEZIL HCL 10 MG TAB PO SCH (08:39)
[2022-06-11] MEDS: METOPROLOL TARTRATE 25 MG TAB PO SCH (08:39)
[2022-06-11] MEDS: guaiFENesin 600 MG TABCR PO SCH ×2 (08:39→20:59)
[2022-06-11] MEDS: CEFEPIME 2,000 MG in SYRINGE 0 ML IV SCH ×2 (08:43→20:59)
--- NOTE | 2022-06-11 09:25 | Communication Note ---
Date of Service: June 11, 2022 Pt's LLE arterial US reviewed at length with Dr Freeman. Femoral and pop arteries widely patent. Pt with widely patent post tib to foot and moderate inf rapop disease. Per Lydia, no indications for vascular surgical intervention and would have excellent healing prognosis for either BKA or AKA. Defer to orthopedics for definitive management of osteomyelitis. Please call if needed.
[2022-06-11] MEDS: POTASSIUM CHLORIDE / WTR 10 MEQ/100 ML PLCT IV SCH ×4 (09:43→13:47)
--- NOTE | 2022-06-11 12:58 | Orthopedic Progress Note ---
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 Vascular service recomments BKA or AKA Discussed finding with Dr. Rouse. Dr. Hahn plans on seeing patient after OR today Continue care per primary service. Continue IV Antibiotics. Admission and Anticipated Discharge Date Admission Date: June 09, 2022 Subjective This 87-year-old male seen with his family at bedside this morning. Today he is a little and oriented x1 and able to follow commands. I discussed with the family vascular service evaluation and the recommendation of either a below the knee or sastw-tma-krok amputation of the patient's left lower extremity. While I was evaluating patient and discussing options with his family, Dr. Vogel came into the room and advised the family that the patient also needed a cholecystectomy, and that Dr. Lindo recommeded that the patient go to a tertiary care facility to have this procedure performed. Family is currently "weighing there options" to provide the patient with the most appropriate intervention. Review of Systems Review of Systems: Unobtainable due to cognitive status Physical Exam Physical Exam: Left lower extremity: 3 cm x 4 cm ulceration to posterior as pect of heel with purulent material noted. Periph pulses are difficult to palpate. Patient is able to move his digits and detect sensation to touch. Also there is erythema and edema to lower leg that is circumferential. Patient is able to do SLRT. Results & Data ([facility]) Vital Signs (Past 12 Hours) Vital Signs Temp Pulse Pulse Resp BP Pulse Ox O2 Del Method 06/11/22 08:00 84 06/11/22 07:24 90 18 93 Room Air 06/11/22 07:14 Room Air 06/11/22 07:08 36.8 C 92 H 16 167/94 H 94 Room Air 06/11/22 03:31 37.0 C 96 H 20 156/79 H 95 Room Air Diagnostic Findings Laboratory Results WBC 12.37 K/ul (4.8-10.8) H 06/11/22 06:59 RBC 3.48 M/uL (4.63-6.08) L 06/11/22 06:59 Hgb 11.7 g/dl (14.0-18.0) L 06/11/22 06:59 Hct 34.0 % (40.1-51.0) L 06/11/22 06:59 MCV 97.7 fL (80.0-100.0) 06/11/22 06:59 MCH 33.6 pg (25.0-34.0) 06/11/22 06:59 MCHC 34.4 g/dL (32.0-36.0) 06/11/22 06:59 RDW Std Deviation 60.3 fL (36.4-46.3) H 06/11/22 06:59 RDW Coeff of Emmy 16.8 % (11.5-14.5) H 06/11/22 06:59 Plt Count 256 K/uL (130-400) 06/11/22 06:59 MPV 10.7 fL (9.4-12.4) 06/11/22 06:59 Immature Gran % (Auto) 0.5 % 06/11/22 06:59 Neut % (Auto) 83.8 % 06/11/22 06:59 Lymph % (Auto) 8.6 % 06/11/22 06:59 [place] % (Auto) 6.3 % 06/11/22 06:59 Eos % (Auto) 0.6 % 06/11/22 06:59 Baso % (Auto) 0.2 % 06/11/22 06:59 Neut # (Auto) 10.37 K/uL (1.4-6.5) H 06/11/22 06:59 Lymph # (Auto) 1.06 K/uL (1.2-3.4) L 06/11/22 06:59 [place] # (Auto) 0.78 K/uL (0.24-0.82) 06/11/22 06:59 Eos # (Auto) 0.07 K/uL (0-0.50) 06/11/22 06:59 Baso # (Auto) 0.03 K/uL (0-0.2) 06/11/22 06:59 Immature Gran # (Auto) 0.06 K/uL (0.00-0.02) H 06/11/22 06:59 PT 12.4 Seconds (9.0-12.0) H 06/09/22 09:57 INR 1.2 (0.9-1.1) H 06/09/22 09:57 APTT 35.3 Seconds (21.0-31.0) H 06/09/22 09:57 PTT Ratio 1.3 06/09/22 09:57 Sodium 143 mmol/L (136-145) 06/11/22 06:59 Potassium 2.9 mmol/L (3.5-5.1) L 06/11/22 06:59 Chloride 113 mmol/L (98-107) H 06/11/22 06:59 Carbon Dioxide 26 mmol/L (21-32) 06/11/22 06:59 Anion Gap 4 (3-11) 06/11/22 06:59 BUN 12 mg/dl (6-23) 06/11/22 06:59 Creatinine 0.64 mg/dl (0.6-1.4) 06/11/22 06:59 Est Cr Clr Drug Dosing 93.4 ml/min 06/11/22 06:59 Est GFR ( Amer) 102.8 ml/min 06/11/22 06:59 Est GFR (Non-Af Amer) 88.7 ml/min 06/11/22 06:59 BUN/Creatinine Ratio 18.8 (10-20) 06/11/22 06:59 Glucose 87 mg/dl (70-99(Fasting)) 06/11/22 06:59 POC Glucose 171 mg/dl (70-99) H 06/09/22 10:16 Lactate 1.5 mmol/L (0.4-2.0) 06/09/22 11:42 Calcium 8.0 mg/dl (8.5-10.1) L 06/11/22 06:59 Magnesium 2.0 mg/dl (1.7-2.4) 06/10/22 09:45 Total Bilirubin 1.0 mg/dl (0.2-1.0) 06/11/22 06:59 AST 18 U/L (13-39) 06/11/22 06:59 ALT 15 U/L (7-52) 06/11/22 06:59 Alkaline Phosphatase 59 U/L (34-104) 06/11/22 06:59 Ammonia 33.0 umol/L (18-72) 06/09/22 09:57 Troponin I High Sens 36.3 pg/ml (0-20) H 06/09/22 13:54 Total Protein 5.7 gm/dl (6.0-8.3) L 06/11/22 06:59 Albumin 2.5 gm/dl (3.4-5.0) L 06/11/22 06:59 Globulin 3.2 gm/dl (2.5-4.0) 06/11/22 06:59 Albumin/Globulin Ratio 0.8 (0.9-2) L 06/11/22 06:59 Amylase 26 U/L (25-115) 06/09/22 13:54 Lipase 6 U/L (11-82) L 06/09/22 13:54 Procalcitonin 0.62 ng/ml (0-0.5) H 06/09/22 09:57 TSH 3.710 uIu/ml (0.300-4.500) 06/09/22 09:57 Urine Color Dark Yellow 06/09/22 11:04 Urine Appearance Cloudy (Clear) A 06/09/22 11:04 Urine pH 5.0 (4.5-7.5) 06/09/22 11:04 Ur Specific [place] 1.038 (1.000-1.030) H 06/09/22 11:04 Urine Protein 2+ (Negative) H 06/09/22 11:04 Urine Glucose (UA) Trace (Negative) H 06/09/22 11:04 Urine Ketones Trace (Negative) H 06/09/22 11:04 Urine Blood Negative (Negative) 06/09/22 11:04 Urine Nitrite Negative (Negative) 06/09/22 11:04 Urine Bilirubin 1+ (Negative) H 06/09/22 11:04 Urine Urobilinogen Negative (Negative) 06/09/22 11:04 Ur Leukocyte Esterase Trace (Negative) H 06/09/22 11:04 Urine WBC (Auto) 1-5 /hpf (0-5) 06/09/22 11:04 Urine RBC (Auto) 0-4 /hpf (0-4) 06/09/22 11:04 U Hyaline Cast (Auto) 1-5 /lpf (0-5) 06/09/22 11:04 U Epithel Cells (Auto) 20-30 /lpf (0-5) H 06/09/22 11:04 Urine Bacteria (Auto) 1+ (Negative) H 06/09/22 11:04 Amorphous Sediment Present (None Prsent) A 06/09/22 11:04 Urine Yeast Not Reportable 06/09/22 11:04 Urine Opiates Screen Neg (Neg) 06/09/22 11:04 Ur Methadone, Qual Neg (Neg) 06/09/22 11:04 Urine Barbiturates Neg (Neg) 06/09/22 11:04 Valproic Acid 15 mcg/ml (50-100) L 06/09/22 09:57 Ur Phencyclidine (PCP) Neg (Neg) 06/09/22 11:04 U Amphetamin/Meth Scrn Neg (Neg) 06/09/22 11:04 MDMA (Ecstasy) Screen Neg (Neg) 06/09/22 11:04 U Benzodiazepines Scrn Neg (Neg) 06/09/22 11:04 Ur Cocaine Metabolite Neg (Neg) 06/09/22 11:04 U Marijuana (THC) Screen Neg (Neg) 06/09/22 11:04 Adenovirus (PCR) Not Detected (NotDetected) 06/09/22 14:16 B. pertussis DNA (PCR) Not Detected (NotDetected) 06/09/22 14:16 B.parapertussis DNA PCR Not Detected (NotDetected) 06/09/22 14:16 C. pneumoniae DNA (PCR) Not Detected (NotDetected) 06/09/22 14:16 Coronavirus OC43 (PCR) Not Detected (NotDetected) 06/09/22 14:16 Coronavirus HKU1 (PCR) Not Detected (NotDetected) 06/09/22 14:16 Coronavirus 229E (PCR) Not Detected (NotDetected) 06/09/22 14:16 SARS-CoV-2 (PCR) DETECTED (NotDetected) A* 06/09/22 14:16 Coronavirus NL63 (PCR) Not Detected (NotDetected) 06/09/22 14:16 Human Metapneumovir PCR Not Detected (NotDetected) 06/09/22 14:16 Influenza Type A (PCR) Not Detected (NotDetected) 06/09/22 14:16 Influenza Type B (PCR) Not Detected (NotDetected) 06/09/22 14:16 M. pneumoniae (PCR) Not Detected (NotDetected) 06/09/22 14:16 Parainfluenza 1 (PCR) Not Detected (NotDetected) 06/09/22 14:16 Parainfluenza 2 (PCR) Not Detected (NotDetected) 06/09/22 14:16 Parainfluenza 3 (PCR) Not Detected (NotDetected) 06/09/22 14:16 Parainfluenza 4 (PCR) Not Detected (NotDetected) 06/09/22 14:16 RSV (PCR) Not Detected (NotDetected) 06/09/22 14:16 Entero/Rhino (PCR) Not Detected (NotDetected) 06/09/22 14:16 Impressions Chest X-Ray 06/09/22 09:37 SINGLE VIEW CHEST CLINICAL HISTORY: Change in mental status. FINDINGS: An AP, portable, upright chest radiograph is compared to study dated 06/03/2022. The examination is degraded by portable technique and patient rotation. A right PICC line is unchanged in position. The cardiomediastinal silhouette is top normal for projection. There is elevation of the right hemidiaphragm with bibasilar scarring/atelectasis. No airspace consolidation or large pleural effusion is identified. No pneumothorax is seen. The skeletal structures are osteopenic. The bony thorax is grossly intact. Arthritic change is seen in the shoulders. IMPRESSION: No acute cardiopulmonary abnormality. ACT 112: Negative or not required by law. Electronically signed by: Lowell Long M.D. 06/09/2022 10:48 AM Abdomen/Pelvis CT 06/09/22 14:27 CT SCAN OF THE ABDOMEN AND PELVIS WITH IV CONTRAST CLINICAL HISTORY: Infection. COMPARISON STUDY: No priors. TECHNIQUE: Following the IV administration of 87 cc of Optiray 350, CT scan of the abdomen and pelvis is performed from the lung bases to the proximal femora. Images are reviewed in the axial, sagittal, and coronal planes. IV contrast was administered without complication. A dose lowering technique was utilized adhering to the principles of ALARA. The examination is degraded by streak artifact from the arms which could not be elevated above the abdomen. There is also motion artifact. CT DOSE: 0.00 mGy.cm FINDINGS: Lung bases: The tip of a right PICC line terminates at the cavoatrial junction. The heart is normal in size and without pericardial effusion. The coronary arteries are densely calcified. There is a small right pleural effusion. Scarring/atelectasis is noted at both lung bases. A tiny hiatal hernia is noted. The esophageal wall appears thickened. Liver: The contrast-enhanced liver is normal in size, contour, and attenuation. There is no intrahepatic biliary ductal dilatation. The hepatic veins and portal veins are patent. A 16 mm hypodensity in the right lobe likely represents a cyst but cannot be definitely characterized due to streak and motion artifact. Gallbladder: The gallbladder is distended. There are calcified gallstones in the region of the gallbladder neck. The gallbladder wall is thickened with surrounding inflammation and fluid. Findings are consistent with acute cholecystitis. Spleen: Normal in size and attenuation. Pancreas: The pancreas is moderately atrophic. Infiltration and trace fluid are seen around the pancreas, greatest involving the pancreatic head and neck. The duct is normal in caliber. The splenic vein is patent. No organized peripancreatic fluid collection is identified. Adrenal glands: Unremarkable. Kidneys: The contrast enhanced kidneys demonstrate cortical atrophy and are without hydronephrosis. The kidneys enhance symmetrically. An indeterminate 1.4 cm cortical hypodensity is noted in the interpolar left kidney. Abdominal vasculature: The abdominal aorta is normal in course and caliber noting advanced atherosclerotic calcification. Bowel: Liquid stool seen throughout the colon. There is no bowel obstruction. The appendix is not visualized. Peritoneum: No intraperitoneal free air is seen. There is trace abdominopelvic ascites. Lymphadenopathy: None. Pelvic viscera: Evaluation of the pelvis is degraded by streak artifact from a left hip arthroplasty. The bladder is decompressed around a Aburto catheter and is not well evaluated. The prostate gland is diminutive and heterogeneous with brachytherapy implants in place. Skeletal structures: The skeletal structures are osteopenic. There is moderate to advanced lumbosacral spondylosis. No lytic or blastic lesions are seen. A left hip arthroplasty is in place. IMPRESSION: 1. Streak and motion degraded examination. 2. Cholelithiasis with acute cholecystitis. Surgical consultation is advised. 3. Suspect concurrent pancreatitis. Correlate with clinical findings and serum amylase/lipase levels. 4. Trace abdominopelvic ascites. 5. Liquid stool is seen throughout the colon. Correlate clinically for evidence of a diarrheal illness. 6. Small right pleural effusion. 7. The esophageal wall appears thickened. Correlate clinically for evidence of esophagitis. This could be further assessed with endoscopy if warranted. 8. There is an indeterminant 1.4 cm cortical hypodensity in the interpolar left kidney. This may represent a simple or complex cyst but cannot be assessed on this examination due to streak and motion artifact. Consider nonemergent renal ultrasound in follow-up. 9. Additional findings as above. ACT 112: Negative or not required by law. Electronically signed by: Lowell Long M.D. 06/09/2022 4:[address] 06/09/22 14:27 CT SCAN OF THE LEFT FOOT WITH IV CONTRAST CLINICAL HISTORY: Osteomyelitis. COMPARISON STUDY: CT scan of the left foot dated 05/30/2022. TECHNIQUE: Following the IV administration of 87 cc of Optiray 350, CT scan of the left foot is performed from the ankle to the base of the foot. Images are reviewed in the axial, sagittal, and coronal planes. IV contrast was administered without complication. A dose lowering technique was utilized adhering to the principles of ALARA. Note that interpretation is suboptimal without plain film correlate. FINDINGS: The skeletal structures are osteopenic. No acute fracture is seen. There are large dorsal and plantar calcaneal enthesophytes. 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 A large cutaneous ulceration is again seen along the dorsolateral aspect of the heel with surrounding cellulitis. A tract is again seen extending from the ulcer to the heel. Again seen is a 2.3 cm focus of cortical erosion and periostitis involving the plantar aspect of the dorsolateral calcaneus consistent with osteomyelitis. This is similar to the study performed 10 days previously. No organized fluid collection is seen to indicate abscess. Imaged portions of the Achilles tendon appear intact. IMPRESSION: 1. Large cutaneous ulcer/wound in the dorsolateral aspect of the heel with surrounding cellulitis. This is similar to previous. 2. Osteomyelitis of the left heel is unchanged from study performed 10 days previously. 3. No drainable fluid collection is seen to indicate abscess. ACT 112: Negative or not required by law. Dictated: 06/09/2022 3:51 PM Transcribed: 06/09/2022 4:15 PM [facility] [id number] [email or web address] Electronically signed by: Lowell Long M.D. 06/09/2022 5:[address] 06/09/22 14:27 CT SCAN OF THE BRAIN WITHOUT IV CONTRAST CLINICAL HISTORY: Change in mental status. COMPARISON STUDY: CT of the brain dated 02/17/2019. TECHNIQUE: Unenhanced axial CT scan of the brain is performed from the vertex to the skull base. A dose lowering technique was utilized adhering to the principles of ALARA. CT DOSE: 884.08 mGy.cm FINDINGS: Brain parenchyma: There is age-related involutional change noting jeig-ys-ynxjcwco subcortical and periventricular microangiopathic disease. Foci of bifrontal encephalomalacia are new from 02/17/2019. Low-attenuation throughout the frontal white matter is also new from previous. There is no hemorrhage, mass effect, or evidence of acute territorial ischemia by CT criteria. Flores-white matter differentiation is preserved. No extra-axial fluid collection is seen. Ventricles, sulci, cisterns: Prominent secondary to involutional change. Cavum septum pellucidum is incidentally noted. Intracranial vasculature: There is atherosclerotic calcification of the cavernous carotid and vertebral arteries. Calvarium: Unremarkable. Sinuses and mastoids: There is trace mucosal thickening within the maxillary antra. Moderate mucosal thickening is seen within the ethmoid sinuses and the left C1 sinus. There is subtotal opacification of the right sphenoid sinus. The mastoid air cells are well pneumatized. Orbits: The bony orbits are grossly intact. There are bilateral ocular lens implants. IMPRESSION: 1. There is no hemorrhage, mass effect, or evidence of acute territorial ischemia by CT criteria. 2. 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 Clinical correlation will be required. ACT 112: Negative or not required by law. Electronically signed by: Lowell Long M.D. 06/09/2022 3:[address] 06/09/22 15:17 CT SCAN OF THE LEFT TIBIA AND FIBULA WITH IV CONTRAST CLINICAL HISTORY: Osteomyelitis of the heel. COMPARISON STUDY: No priors. TECHNIQUE: Following the IV administration of 87 cc of Optiray-350, CT scan of the left tibia and fibula is performed from the knee to the ankle. Images were reviewed in the axial, sagittal, and coronal planes. IV contrast was administered without complication. A dose lowering technique was utilized adhering to the principles of ALARA. CT DOSE: 1729.57 mGy.cm FINDINGS: The skeletal structures are osteopenic. There is no evidence of tibial or fibular fracture. No bony erosion or periostitis is seen involving the tibia or fibula to suggest osteomyelitis. The knee and ankle joints are grossly maintained noting arthritic change. There is no knee joint effusion. There is generalized atrophy of the regional musculature. Atherosclerotic calcification is noted in the regional arteries. 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 Soft tissue edema and trace subcutaneous fluid is seen in the distal calf and around the ankle joint. The Achilles tendon is intact as visualized. IMPRESSION: 1. No acute bony abnormality is seen involving the left tibia or fibula. 2. Soft tissue edema of the distal calf and ankle as above. Correlate clinically for evidence of cellulitis. ACT 112: Negative or not required by law. Dictated: 06/09/2022 3:56 PM Transcribed: 06/09/2022 4:17 PM [facility] [id number] [email or web address] Electronically signed by: Lowell Long M.D. 06/09/2022 4:56 PM Duplex Scan Lower Extremity Artery 06/10/22 08:55 LEFT LOWER EXTREMITY ARTERIAL DOPPLER ULTRASOUND CLINICAL HISTORY: Left heel osteomyelitis. COMPARISON STUDY: No previous studies for comparison. TECHNIQUE: Color and duplex Doppler sonography of the left lower extremity was performed. FINDINGS: Ankle to brachial indices could not be obtained in this patient. Toe waveforms are dampened, right greater than left. There is no evidence for inflow disease. Moderate atherosclerotic plaque within the left lower extremity is present. There is biphasic flow within the left common femoral, superficial femoral and popliteal arteries. No elevated velocities within these vessels were noted. Note is made of biphasic flow within the proximal left anterior tibial artery. There is no flow within the remainder of the left anterior tibial artery. There is trace flow within the left dorsalis pedis. Biphasic flow within the left posterior tibial artery is noted. No flow is identified within the left peroneal artery. IMPRESSION: 1. Moderate atherosclerotic plaque within the left lower extremity. No elevated velocities identified. 2. Suspected occlusion of the mid to distal left anterior tibial artery with minimal reconstitution within the dorsalis pedis. Probable occlusion of the left peroneal artery. Patent left posterior tibial artery. ACT 112: Negative or not required by law. Electronically signed by: Silverio Dahl M.D. 06/10/2022 2:52 PM
[2022-06-11 13:09] LABS: Adenovirus F 40/41 PCR Not Detected (NotDetected); Astrovirus PCR Not Detected (NotDetected); Campylobacter PCR Not Detected (NotDetected); Clostridium diff Toxin A/B PCR Not Detected (NotDetected); Cryptosporidium PCR Not Detected (NotDetected); Cyclospora cayetanensis PCR Not Detected (NotDetected); Entamoeba histolytica PCR Not Detected (NotDetected); Enteroaggregative E.coli(EAEC) Not Detected (NotDetected); Enteropathogenic E.coli (EPEC) Not Detected (NotDetected); Enterotoxigenic E.coli (ETEC) Not Detected (NotDetected); Giardia lamblia PCR Not Detected (NotDetected); Norovirus GI/GII PCR Not Detected (NotDetected); Plesiomonas shigelloides PCR Not Detected (NotDetected); Rotavirus A PCR Not Detected (NotDetected); Salmonella PCR Not Detected (NotDetected); Sapovirus PCR Not Detected (NotDetected); Shiga-like Toxin E.coli (STEC) Not Detected (NotDetected); Shigella/Enteroinvasive E.coli Not Detected (NotDetected); Vibrio cholerae PCR Not Detected (NotDetected); Vibrio species PCR Not Detected (NotDetected); Yersinia enterocolitica PCR Not Detected (NotDetected)
--- NOTE | 2022-06-11 13:25 | Palliative Care Consultation ---
Date of Consultation June 11, 2022 Assessment & Plan (1) AMS (altered mental status): Some improvement with antibiotic therapy. He is not capable of decision making at this time and his family recognizes this. (2) Palliative care encounter: I met with Mr. Sebastian's son, daughter, and granddaughter to discuss goals of care. 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 They tell me that he does not have an advance directive and has not really talked about what he would want for his care if he were seriously ill. His daughter is a cardiac care nurse and has a good understanding of his illness. They have been considering whether to proceed with surgical interventions for his cholecystitis and osteomyelitis but his daughter is concerned that he is high risk and that anesthesia may cause further deterioration of his mental status. They understand that rehab would be difficult for him with his mental status. They understand that without surgery, he is likely to have recurrent infections at best. His son, Jimmie, is very grateful for the relative improvement in his mental status in the last day or two and feels that they have had good time together. He is concerned that his father would have greater suffering if he were bedbound or wheelchair bound. He is confident that Tevin would not be happy if he were not able to get around on his own. We discussed options for symptom management and proceeding with surgical intervention which would likely require transfer to tertiary care facility vs shift of focus to comfort and symptom management. They expressed interest in taking him home to his farm with hospice care but his home needs repairs and Jimmie would need to get time off from work. We discussed the hospice benefit and services provided. WE discussed the option of SNF initially while Jimmie arranges things at home. They will discuss as a family to determine what the best plan will be. Notified case management. In the interim, they would like to continue IV antibiotics here in the hospital to maximize his mental status and allow them to have some meaningful visits with family. Dr. Vogel aware. History of Present Illness Reason for Consultation: goals of care Requesting Physician: Dr. Vogel Attending Physician: Mo Vogel History of Present Illness 87 yo gentleman with dementia who has had progressive decline over the last two years according to his family. Recently he has had several falls complicated by rhabdomyolysis and a subdural hematoma. He had been at [facility] for rehab and was transferred to [facility] with altered mental status. He has a left foot ulcer with osteomyelitis and peripheral vascular disease. He is followed by Dr. Hahn who debrided the wound today. He has had response to antibiotic therapy in terms of his mental status but is likely to need amputation for his left foot infection. He has also been found to have cholecystitis. He is confused at the time of my visit and unable to answer any questions. He tells me that he is "dirty" when I asked him if he's having pain. Per his family, he has had some lucid moments and is more alert and mentally clear than he has been recently. Allergies Allergy/AdvReac Type Severity Reaction Status Date / Time No Known Allergies Allergy Verified 06/07/22 13:40 Home Medications Medication Instructions Recorded Confirmed Type donepezil 10 mg tablet 10 mg PO DAILY 08/29/20 06/09/22 History acetaminophen 650 mg tablet 650 mg PO Q4H PRN Pain 06/03/22 06/09/22 History docusate sodium 50 mg/mL oral 100 mg PO BID 06/03/22 06/09/22 History solution enoxaparin 30 mg/0.3 mL 30 mg subcut Q12H 06/03/22 06/09/22 History subcutaneous syringe metoprolol tartrate 50 mg tablet 25 mg PO DAILY 06/03/22 06/09/22 History (Lopressor) nystatin 100,000 unit/gram topical 1 applic topical BID 06/03/22 06/09/22 History powder piperacillin-tazobactam 3.375 gram 3.375 g IV Q6H 06/03/22 06/09/22 History intravenous solution quetiapine 50 mg tablet (Seroquel) 50 mg PO HS 06/03/22 06/09/22 History valproic acid 250 mg capsule 250 mg PO BID 06/03/22 06/09/22 History vancomycin 1.5 gram intravenous 1 g IV DAILY 06/03/22 06/09/22 History solution Patient History Medical History Acute osteomyelitis of foot Chronic gastroesophageal reflux disease Hearing loss History of fall within past 90 days HTN (hypertension) Hx of subdural hematoma Left leg DVT Left leg DVT Memory loss Prostate cancer Somatic dysfunction of lower extremities Unilateral primary osteoarthritis, unspecified knee Surgical History History of appendectomy History of cataract surgery History of tonsillectomy and adenoidectomy History of total right knee replacement Family History Father Prostate cancer Denies family history of Colon cancer Ovarian cancer Myocardial infarction Breast cancer Colorectal cancer Social History Smoking Status: Unknown if ever smoked Preferred Language: Chilean Communication Ability: Unable Communication Ability Comment: Patient with dementia Visual Impairment: Limited Hearing Ability: Hard of Hearing 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 Beliefs That Will Affect Care: None marital status: / Current Living Situation: Other Current Living Situation Comment: Has been in rehab at [facility] current occupational status: retired Feels Safe at Home: Declines to Answer Childhood Exposure to Second-Hand Smoke: No Dental Care, Regularly: No Physical Activity Frequency: Does not Exercise Seatbelt Use: always Sunscreen Use: No Assistive Devices: Glasses and Walker Review of Systems Review of Systems: Unobtainable due to cognitive status Physical Exam Constitutional: + disheveled; no acute distress ENMT: Mouth: oral mucous membranes not dry Respiratory: normal respiratory effort; no labored breathing Cardiovascular: Rate/Rhythm: regular rate and regular rhythm Gastrointestinal (Abdomen): refused palpation Incontinent of loose stool Musculoskeletal: Extremities: + muscle atrophy vascular skin changes LLE Neurologic: Speech / Cognition: + abnormal cognition Psychiatric: Orientation: oriented to person Genitourinary: Aburto catheter with dark urine Results & Data ([facility]) Vital Signs (Past 12 Hours) Vital Signs Temp Pulse Pulse Resp BP Pulse Ox O2 Del Method 06/11/22 08:00 84 06/11/22 07:24 90 18 93 Room Air 06/11/22 07:14 Room Air 06/11/22 07:08 98.2 F 92 H 16 167/94 H 94 Room Air 06/11/22 03:31 98.6 F 96 H 20 156/79 H 95 Room Air PG Care Time/CCT Total # of Minutes Spent Total Time Spent: 77 Total Time Spent with Patient: Total time spent is greater than 50% in coordination of care (as documented) at patient's floor/unit and/or counseling patient: goals of care, symptom manag ement, hospice, family education and support, coordination of care Coding Level of Care Code 81360 Initial Inpt Care Lvl 3 Diagnoses AMS (altered mental status) R41.82 Palliative care encounter Z51.5
--- NOTE | 2022-06-11 13:44 | Communication Note ---
Date of Service: June 11, 2022 Patient with recent history of subarachnoid hemorrhage, presenting from rehab at [facility] for AMS and lethargy. Patient found to be in sepsis on admission and workup noted acute cholecystitis along with known L foot osteomyelitis. We were informed that patient was DNR/DNI and family did not want any extensive measures taken. He has been on IV abx with improvement in WBC (12 from 16) and vitals. Today after discussions with family, we were reached back out to to consider patient for cholecystectomy. I attempted to meet with family and patient on m tiple occasions, however he was being visited by the Ortho team (who performed a bedside debridement of the left foot) and then by Palliative care. I discussed the patient with my attending Dr. Lindo. He is not an ideal surgical candidate given his medical status, therefore we have no plans for laparoscopic cholecystectomy here. If the family wishes to proceed with management of cholecystitis the patient would benefit from a percutaneous cholecystostomy tube. Unfortunately our radiology department does not routinely perform this procedure here and he would likely need to be transferred out to a tertiary center with IR capabilities. I did discuss this with palliative care who was outside the room and they were going to go over goals of care with the patient and family. If the family wishes to proceed with management of cholecystitis, then that would be our recommendations.
--- NOTE | 2022-06-11 15:08 | Progress Notes ---
The patient is an 87-year-old gentleman admitted to the medicine service. We were consulted to see h im regarding left calcaneal osteomyelitis. This is in the setting of peripheral vascular disease and extended hospitalization. He has had a couple of falls since January and has been in and out of care f acilities and rehab, most recently [facility]. He was admitted to the hospital for change in m ental status. He has had a wound on his left heel for at least a month. He has been seen by [facility]. He has 1 vessel patent into the left lower extremity. A CT scan of the left calcaneus demonstrat es osteomyelitis. There is consideration for surgical intervention of his gallbladder. The patient suffers from dementia. He has ambulated minimally from January onward and has not done anything for abo ut the past month since his last fall. His health history is noted and reviewed. He has had a DVT. He is not diabetic. Peripheral artery disease. Medications are also noted and reviewed. He is rec eiving cefepime and daptomycin. On examination, there is a 2-cm necrotic wound over the lateral aspect of the calcaneus. Pedal pulse s are not palpable. There are chronic venous stasis changes of the skin on the lower half of the lef t leg. He can bend his knee about 60 degrees. He can flex and extend his ankle. He does follow ashely e commands, but does not respond meaningfully to questions or provide any detailed historical informa tion. History is gathered from the family. There is no evidence of abscess fluid collection, erythe ma, or drainage. The ulcer is tender to him. With the family's permission, I debrided the necrotic tissue, which is some skin and subcutaneous fat . Grayish yellow necrotic tissue. This was debrided down to healthy granulation tissue. There is n o exposed bone, but the bone is readily palpable. There is no purulence. The wound depth is about 7 mm. His sensation is grossly intact. IMPRESSION: Dementia with poor ambulatory capacity, left calcaneal osteomyelitis with overlying pres sure wound, and peripheral artery disease. PLAN: Findings are discussed. The bone infection may possibly be contained with antibiotics and wou nd care. That unfortunately will not eradicate it. Eradication would require surgery. We talked ab out the difficulties of debridement of calcaneal bone in terms of having adequate soft tissue coverag e to cover the bone and trying to preserve the attachment of the Achilles. Being that his ambulatory capacity is rather limited, a below or above-knee amputation could be considered as a definitive xavi atment to eradicate the infection and improve chances of healing. We talked generalities of risks, b enefits, rehab, and recovery with the family. At this time, they are uncertain which path they would like to choose. There is a chance that the osteomyelitis may become fulminant and cause sepsis. Wi th amputation, he is unlikely to ever ambulate again. The family is leaning towards comfort measures and palliative care. We will continue to monitor. If they elect nonoperative management, possibly discharge on oral antibiotics would be appropriate. Maybe consider infectious diseases consultation. Continue offloading waffle boots. Wound care consult. Job ID: [id number]
[2022-06-11] MEDS: DAPTOmycin 500 MG in SYRINGE 0 ML IV SCH (16:37)
[2022-06-11] MEDS ORDERED: REMDESIVIR 100mg: Days 2-5 IV SCH (20:00)
--- NOTE | 2022-06-11 22:10 | Hospitalist Progress Note ---
Date of Service June 11, 2022 Assessment & Plan (1) Sepsis: Plan: -Admit to med/tele -Patient is currently febrile, hemodynamically stable, stable on RA, and tachycardic in the low 100's -AT this time the source of the patient's infection is unknown, patient jayce martin has left heel OM but has been on Vancomycin/Zosyn at [facility] for approximally 10 days, per staff, he has pulled out multiple PICC lines over his stay, the one he currently has placed was placed on 06/07/22, patient has significant leukocytosis with left shift and procal of 0.6. -Will obtain CT of the abdomen/Pelvis w/wo contrast for further evaluation of possible sources of infection, will also get a CT of the left foot/ankle to further evaluate known OM -For now will switch patient to Daptomycin/Cefepime since he was febrile on Vanc/Zosyn, will also start flagyl to cover intra-abdominal sources until workup is complete -Had ED order Biofire for further viral evaluation -Multiple blood culture sets have been obtained, confirmed with nursing staff that one set was obtained from current PICC site, if biofire is negative and becomes bacteremic, would take current PICC out -Placed [facility] ortho consult for evaluation of left heel OM -Continue to monitor infectious workup and tailor antibiotics to results -Will continue with IV fluid resuscitation for now with LR's for 2 more bags as he appears dehydrated -Monitor AM CBC, CMP, Mag On 06/11 Had extensive discussion with family. Discussed with surgeons, Ortho recommends amuptation, gen surgery recomends cholescystectomy. Patient is less confused today which makes it hard for family to decide which route to take. His daughter who is a nurse is at bedside, she understands delirium, they wax and wane. recommended palliative care consult for goals of care discussion to see what would the patient's wish be if he could decide. Had discussion with Rox Fisher. After consult completed, family opted for home hospice. (2) Altered mental status: Plan: Acute encephalopathy -Baseline appears to be somewhat interactive when he is awake, [facility] staff said that he had an abrupt change this morning -Will obtain STAT CT head to rule out acute changes -Likely his acute infection and dehydration are also playing a role (3) Prostate cancer: Plan: -In remission and not on current therapy (4) Memory loss: Plan: -Contique Aricept (5) Acute osteomyelitis of left foot: Plan: -See sepsis (6) Hx of subdural hematoma: Plan: -Per [facility], had been cleared by Neurosurgery for chemical DVT PPX -FU with CT head to rule out acute changes (7) HTN (hypertension): Plan: -Will continue metoprolol for now as he is hemodynamically stable (8) Hypokalemia: Plan: -Noted to be 2.9 today, likely from recent poor oral intake -Giving 3 doses of 10 meq KCL riders then will continue with LR's -Will order evening potassium to FU, mag has been stable Admission and Anticipated Discharge Date Admission Date: June 09, 2022 Subjective Had extensive discussion with specialists and family. Family is unsure of goals of care. They understand patient has a long recovery moving forward. Review of Systems Review of Systems: Unobtainable due to cognitive status Physical Exam Physical Exam: General:In no acute distress, stated age, chronically ill- appearing HEENT:Normocephalic, atraumatic, no scleral icterus, pupils around round, symmetrical, and reactive to light Chest/Pulm:No respiratory distress, symmetrical chest expansion, scattered rhonchi noted in the right upper lung field, left lung is CTA Cardiac:tachycardic rate, regular rhythm, no murmurs noted Abdomen:Negative for ascites and bruising, normoactive bowel sounds, soft, no grimacing or guarding from patient during abdominal palpation :Aburto catheter placed by ED staff is in place, currently draining a small amount of dark urine Musculoskeletal:Patient with chronic left heel wound, currently draining pus, left wilson erythema noted ass well, no acute trauma noted Extremities:Radial, dorsalis pedis, and posterior tibial pulses are intact and symmetrical, no edema noted in the BL LE's, patient with PICC line placed in the LUE is without signs of infection Skin:Warm, dry, no rashes , lesions, or scars noted Neuro: pupils are round, symmetrical and reactive to light, no other focal defects on exam Psych:No acute distress, lethargic, will not follow commands Results & Data Results & Data ([facility]) Vital Signs (Past 12 Hours) Vital Signs Temp Pulse Pulse Resp BP Pulse Ox O2 Del Method 06/11/22 20:44 81 16 95 Room Air 06/11/22 20:01 36.5 C 85 18 167/73 H 94 Room Air 06/11/22 17:10 87 PG Care Time/CCT Total # of Minutes Spent Total Time Spent with Patient: Total time spent is greater than 50% in coordination of care (as documented) at patient's floor/unit and/or counseling patient: Prolonged Care Time Prolonged Care Time: Yes (65) 65 12:00 to 13:05 Coding Level of Care Code 85920 Subseq Hosp Care Lvl 3 (25 - SIGNIFICANT, SEPARATELY IDENTIFIABLE ) Diagnoses Sepsis A41.9 Altered mental status R41.82 Prostate cancer C61 Memory loss R41.3 Acute osteomyelitis of left foot M86.172 Hx of subdural hematoma Z86.79 HTN (hypertension) I10 Hypokalemia E87.6 Additional Codes Prolonged Care Time - Prolonged Care Time: Yes ([id number]) Time Spent (min) 65
[2022-06-12] MEDS: metroNIDAZOLE 500 MG/100 ML BAG IV SCH ×3 (00:56→17:11)
[2022-06-12] MEDS: LACTATED RINGER'S 1,000 ML IV SCH (03:04)
[2022-06-12 07:18] LABS: Basophils # (auto) 0.05 K/uL (0-0.2); Basophils % (auto) 0.6 %; Eosinophils # (auto) 0.23 K/uL (0-0.50); Eosinophils % (auto) 2.9 %; Hematocrit (blood only) 31.7 % (40.1-51.0); Immature Granulocytes # (auto) 0.04 K/uL (0.00-0.02); Immature Granulocytes % (auto) 0.5 %; Lymphocytes # (auto) 0.97 K/uL (1.2-3.4); Mean Corpuscular Hgb Conc 34.7 g/dL (32.0-36.0); Mean Corpuscular Volume 97.8 fL (80.0-100.0); Mean Platelet Volume 10.6 fL (9.4-12.4); Monocytes # (auto) 0.53 K/uL (0.24-0.82); Monocytes % (auto) 6.6 %; Neutrophils # (auto) 6.24 K/uL (1.4-6.5); Neutrophils % (auto) 77.4 %; Platelet Count 260 K/uL (130-400); RDW Coefficient of Variation 16.4 % (11.5-14.5); RDW Standard Deviation 59.6 fL (36.4-46.3); Red Blood Count 3.24 M/uL (4.63-6.08); White Blood Count 8.06 K/ul (4.8-10.8)
[2022-06-12] MEDS: ALBUT/IPRATROP 3MG/0.5MG NEB 3 ML VIAL NEB SCH ×2 (07:29→20:28)
[2022-06-12] MEDS: SODIUM CHLOR 7% 4 ML NEB NEB SCH ×2 (07:39→20:28)
[2022-06-12 07:44] LABS: Albumin Globulin Ratio 0.8 (0.9-2); Albumin Level 2.3 gm/dl (3.4-5.0); Bilirubin,Total 0.9 mg/dl (0.2-1.0); Calcium 7.5 mg/dl (8.5-10.1); Est GFR (African American) 104.8 ml/min; Est GFR (Non-African American) 90.4 ml/min; Potassium 2.9 mmol/L (3.5-5.1); Total Protein 5.3 gm/dl (6.0-8.3)
[2022-06-12] MEDS: guaiFENesin 600 MG TABCR PO SCH ×2 (09:39→19:42)
[2022-06-12] MEDS: METOPROLOL TARTRATE 25 MG TAB PO SCH (09:39)
[2022-06-12] MEDS: DONEPEZIL HCL 10 MG TAB PO SCH (09:41)
[2022-06-12] MEDS: PANTOprazole 40 MG in SYRINGE 0 ML IV SCH (09:41)
[2022-06-12] MEDS: VALPROIC ACID SOLN 250 MG/5 ML UDC PO SCH ×2 (09:42→19:42)
[2022-06-12] MEDS: CEFEPIME 2,000 MG in SYRINGE 0 ML IV SCH ×2 (10:54→18:15)
--- NOTE | 2022-06-12 14:43 | Hospitalist Progress Note ---
Date of Service June 12, 2022 Assessment & Plan (1) Sepsis: Plan: -Could be 2nry to COVID 19, given positive Biofire -patient had COVID in April. This could be reccurent COVID -Patient is currently febrile, hemodynamically stable, stable on RA, and tachycardic in the low 100's -Also currently has left heel OM but has been on Vancomycin/Zosyn at [facility] for approximally 10 days, per staff, he has pulled out multiple PICC lines over his stay, the one he currently has placed was placed on 06/07/22, patient has significant leukocytosis with left shift and procal of 0.6. - CT of the abdomen/Pelvis w/wo contrast did not show any other source of infection -For now will switch patient to Daptomycin/Cefepime since he was febrile on Vanc/Zosyn, will also start flagyl to cover intra-abdominal sources until workup is complete -Multiple blood culture sets have been obtained, confirmed with nursing staff that one set was obtained from current PICC site -Ortho recommends amputation for the osteomyelitis and Gen Surgery recommends cholecystecomy, however, family wary patient may not tolerate surgery well They have opted for Home Hospice, however, patinets home is in need of some repairs -Pharmacy suggests Dalbavancin as an alternative to vancomycin if family still wants home antibiotics while on hospice (2) Altered mental status: Plan: Acute encephalopathy -Baseline appears to be somewhat interactive when he is awake, [facility] staff said that he had an abrupt change this morning -Will obtain STAT CT head to rule out acute changes -Likely his acute infection and dehydration are also playing a role (3) Prostate cancer: Plan: -In remission and not on current therapy (4) Memory loss: Plan: -Contique Aricept (5) Acute osteomyelitis of left foot: Plan: -See sepsis (6) Hx of subdural hematoma: Plan: -Per [facility], had been cleared by Neurosurgery for chemical DVT PPX -FU with CT head to rule out acute changes (7) HTN (hypertension): Plan: -Will continue metoprolol for now as he is hemodynamically stable (8) Hypokalemia: Plan: -resolved Plan Home with Hospice when his home has undergone some repairs Admission and Anticipated Discharge Date Admission Date: June 09, 2022 Subjective patient seen and examined, awake, but did not respond to my questions Review of Systems Review of Systems: unable to obtain due to mental status Physical Exam Physical Exam: The patient is awake, but did not respond to my questions HEENT--PERRL, EOMI, mucous membranes and oropharynx mildly dry Neck--supple. No JVD. No bruits. Thyroid normal, trachea midline, no adenopathy. Heart--normal S1 and S2. No murmurs, rubs or gallops. Lungs--clear bilaterally, no respiratory distress, no accessory muscle use. Abdomen--normal bowel sounds and soft. Mild epigastric and left sided abdominal pain Extremities--no cyanosis or clubbing. No edema. Dermatologic--normal skin turgor, normal color, no abnormal lymph nodes, no rash. Neurologic--cranial nerves II through XII grossly intact. Rheumatologic--normal range of motion. Psychiatric--normal affect. Results & Data Results & Data ([facility]) Vital Signs (Past 12 Hours) Vital Signs Pulse Pulse Pulse Resp BP Pulse Ox O2 Del Method 06/12/22 11:03 Room Air 06/12/22 06:07 79 06/12/22 09:40 87 137/80 06/12/22 07:36 78 20 95 Room Air PG Care Time/CCT Total # of Minutes Spent Total Time Spent with Patient: Total time spent is greater than 50% in coordination of care (as documented) at patient's floor/unit and/or counseling patient: Coding Level of Care Code 33133 Subseq Hosp Care Lvl 2 Diagnoses Sepsis A41.9 Altered mental status R41.82 Prostate cancer C61 Memory loss R41.3 Acute osteomyelitis of left foot M86.172 Hx of subdural hematoma Z86.79 HTN (hypertension) I10 Hypokalemia E87.6 Time Spent (min) 35
[2022-06-12] MEDS: DAPTOmycin 500 MG in SYRINGE 0 ML IV SCH (17:04)
[2022-06-12] MEDS: PANTOprazole 40 MG TAB PO SCH (19:42)
[2022-06-13] MEDS: metroNIDAZOLE 500 MG/100 ML BAG IV SCH ×3 (01:10→17:10)
[2022-06-13] MEDS: CEFEPIME 2,000 MG in SYRINGE 0 ML IV SCH ×3 (01:11→18:23)
[2022-06-13] MEDS: SODIUM CHLOR 7% 4 ML NEB NEB SCH ×2 (07:04→19:31)
[2022-06-13] MEDS: ALBUT/IPRATROP 3MG/0.5MG NEB 3 ML VIAL NEB SCH ×2 (07:04→19:31)
[2022-06-13] MEDS: PANTOprazole 40 MG TAB PO SCH ×3 (08:01→21:12)
[2022-06-13] MEDS: DONEPEZIL HCL 10 MG TAB PO SCH (08:01)
[2022-06-13] MEDS: guaiFENesin 600 MG TABCR PO SCH (08:01)
[2022-06-13] MEDS: METOPROLOL TARTRATE 25 MG TAB PO SCH (08:01)
[2022-06-13] MEDS: VALPROIC ACID SOLN 250 MG/5 ML UDC PO SCH ×3 (08:01→21:12)
[2022-06-13] MEDS ORDERED: MoRPHine SULFATE 5 MG/0.25 ML UDP PO PRN (12:14)
[2022-06-13] MEDS: ACETAMINOPHEN SUSP 325 MG/10.15 ML UDC PO SCH ×3 (12:54→21:11)
--- NOTE | 2022-06-13 12:57 | Palliative Care Progress Note ---
Date of Service June 13, 2022 Assessment & Plan (1) Pain: Plan: He is unable to articulate that he is having pain but appears uncomfortable. Discussed with his daughter and son. They do not want him to have pain and are agreeable to routine dosing of tylenol. Will change to oral suspension for easier dosing. Will also add prn morphine if pain is not controlled. (2) Palliative care encounter: Plan: Family is planning to get him home with hospice but need to complete repairs and preparations at home. Plan is for delivery of equipment, including hospital bed, on Friday. Case management is coordinating with [facility] hospice and family. We discussed medication burden with him refusing medications last night. Evidence does not support benefit of aricept in advanced disease and he has not had recent symptoms of cough or congestion. Will stop aricept and mucinex. Talked about what to expect with change in mental status, increased lethargy. Family wants to continue IV antibiotics during hospitalization to maximize his mental status for family visits. Discussed with case management. Admission and Anticipated Discharge Date Admission Date: June 09, 2022 Subjective More sleepy today. Taking only sips and small amounts of food. Spit out medications last night. Review of Systems Review of Systems: Unobtainable due to cognitive status Physical Exam Constitutional: lethargic ENMT: Mouth: + dry oral mucous membranes facial grimace Respiratory: normal respiratory effort; no labored breathing Cardiovascular: Rate/Rhythm: regular rate and regular rhythm Musculoskeletal: Extremities: + muscle atrophy muscle tension with flexed extremities Skin: warm and dry Neurologic: Speech / Cognition: + abnormal cognition Genitourinary: Aburto catheter Results & Data ([facility]) Vital Signs (Past 12 Hours) Vital Signs Temp Pulse Pulse Resp BP Pulse Ox O2 Del Method 06/13/22 11:11 98.6 F 90 20 154/81 H 94 Room Air 06/13/22 10:09 Room Air 06/13/22 07:54 98.6 F 86 20 185/78 H 93 06/13/22 07:05 80 16 93 Room Air 06/13/22 06:10 80 06/13/22 03:00 Room Air 06/13/22 02:50 Room Air 06/13/22 01:03 83 PG Care Time/CCT Total # of Minutes Spent Total Time Spent: 39 Total Time Spent with Patient: Total time spent is greater than 50% in coordination of care (as documented) at patient's floor/unit and/or counseling patient: symptom management, family education and support, coordination of care Coding Level of Care Code 99829 Subseq Hosp Care Lvl 3 Diagnoses Pain R52 Palliative care encounter Z51.5
--- NOTE | 2022-06-13 13:02 | Orthopedic Progress Note ---
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 Checked in with family again today to see if wishes changed. Daughter is tearful but thinks that hospice is the best plan for treatment at this time. Discussed with wound care nurse about some type of dressing that they could put on it. She will discuss with daughter. Please let us know if anything changes in the future. Dr. Hahn present for today's visit. Admission and Anticipated Discharge Date Admission Date: June 09, 2022 Subjective Saw patient today with Dr. Hahn. Patient resting in bed, daughter at bedside. Physical Exam Musculoskeletal: No exam performed. Results & Data ([facility]) Vital Signs (Past 12 Hours) Vital Signs Temp Pulse Pulse Resp BP Pulse Ox O2 Del Method 06/13/22 11:11 37.0 C 90 20 154/81 H 94 Room Air 06/13/22 10:09 Room Air 06/13/22 07:54 37.0 C 86 20 185/78 H 93 06/13/22 07:05 80 16 93 Room Air 06/13/22 06:10 80 06/13/22 03:00 Room Air 06/13/22 02:50 Room Air 06/13/22 01:03 83
--- NOTE | 2022-06-13 15:43 | Hospitalist Progress Note ---
Date of Service June 13, 2022 Assessment & Plan (1) Sepsis: Plan: -Could be 2nry to Ostemyelitis and COVID 19, given positive Biofire -patient had COVID in April. This could be reccurent COVID -Patient is currently febrile, hemodynamically stable, stable on RA, and tachycardic in the low 100's -Also currently has left heel OM and non healing ulcer (ortho recs amputation) but has been on Vancomycin/Zosyn per staff, he has pulled out multiple PICC lines over his stay, the one he currently has placed was placed on 06/07/22 - CT of the abdomen/Pelvis w/wo contrast did not show any other source of infection -For now will switch patient to Daptomycin/Cefepime since he was febrile on Vanc/Zosyn -Multiple blood culture sets have been obtained, confirmed with nursing staff that one set was obtained from current PICC site -Ortho recommends amputation for the osteomyelitis and Gen Surgery recommends cholecystecomy, however, family wary patient may not tolerate surgery well -They have opted for Home Hospice, palliative on consult. However, patients jarred e is in need of some repairs and supplies, including hospital bed will be delivered on Friday -Pharmacy suggests Dalbavancin as an alternative to vancomycin if family still wants home antibiotics while on hospice (2) Altered mental status: Plan: Acute encephalopathy -Patient at baseline according to daughter -He is confused and occasionally answers questions (3) Prostate cancer: Plan: -In remission and not on current therapy (4) Memory loss: Plan: -Contique Aricept (5) Acute osteomyelitis of left foot: Plan: -See sepsis (6) Hx of subdural hematoma: Plan: -Per [facility], had been cleared by Neurosurgery for chemical DVT PPX -FU with CT head to rule out acute changes (7) HTN (hypertension): Plan: -Will continue metoprolol for now as he is hemodynamically stable (8) Hypokalemia: Plan: -resolved Plan Home with Hospice when his home has undergone some repairs Admission and Anticipated Discharge Date Admission Date: June 09, 2022 Subjective patient seen and examined, answered some questions today, said he was cold Review of Systems Review of Systems: unable to obtain due to mental status Physical Exam Physical Exam: The patient is awake, but did not respond to my questions HEENT--PERRL, EOMI, mucous membranes and oropharynx mildly dry Neck--supple. No JVD. No bruits. Thyroid normal, trachea midline, no vicenta nopathy. Heart--normal S1 and S2. No murmurs, rubs or gallops. Lungs--clear bilaterally, no respiratory distress, no accessory muscle use. Abdomen--normal bowel sounds and soft. Mild epigastric and left sided abdominal pain Extremities--no cyanosis or clubbing. No edema. Dermatologic--normal skin turgor, normal color, no abnormal lymph nodes, no rash. Neurologic--cranial nerves II through XII grossly intact. Rheumatologic--normal range of motion. Psychiatric--normal affect. Results & Data Results & Data ([facility]) Vital Signs (Past 12 Hours) Vital Signs Temp Pulse Pulse Resp BP Pulse Ox O2 Del Method 06/13/22 14:20 99 H 06/13/22 11:11 98.6 F 90 20 154/81 H 94 Room Air 06/13/22 10:09 Room Air 06/13/22 07:54 98.6 F 86 20 185/78 H 93 06/13/22 07:05 80 16 93 Room Air 06/13/22 06:10 80 PG Care Time/CCT Total # of Minutes Spent Total Time Spent with Patient: Total time spent is greater than 50% in coordination of care (as documented) at patient's floor/unit and/or counseling patient: Coding Level of Care Code 86541 Subseq Hosp Care Lvl 2 Diagnoses Sepsis A41.9 Altered mental status R41.82 Prostate cancer C61 Memory loss R41.3 Acute osteomyelitis of left foot M86.172 Hx of subdural hematoma Z86.79 HTN (hypertension) I10 Hypokalemia E87.6 Time Spent (min) 35
[2022-06-13] MEDS: DAPTOmycin 500 MG in SYRINGE 0 ML IV SCH (17:10)
[2022-06-13] MEDS ORDERED: ACETAMINOPHEN 1,000 MG/100 ML VIAL IV PRN (22:20)
[2022-06-13] MEDS ORDERED: PANTOprazole 40 MG in SYRINGE 0 ML IV ONE (22:25)
[2022-06-14] MEDS: metroNIDAZOLE 500 MG/100 ML BAG IV SCH ×2 (00:12→10:41)
[2022-06-14] MEDS: ACETAMINOPHEN SUSP 325 MG/10.15 ML UDC PO SCH ×2 (00:57→11:58)
[2022-06-14] MEDS: CEFEPIME 2,000 MG in SYRINGE 0 ML IV SCH ×3 (01:13→17:06)
[2022-06-14] MEDS: ALBUT/IPRATROP 3MG/0.5MG NEB 3 ML VIAL NEB SCH ×2 (07:04→19:50)
[2022-06-14] MEDS: SODIUM CHLOR 7% 4 ML NEB NEB SCH ×2 (07:04→19:50)
[2022-06-14 08:38] LABS: Est GFR (African American) 102.1 ml/min; Est GFR (Non-African American) 88.1 ml/min
[2022-06-14] MEDS: PANTOprazole 40 MG TAB PO SCH ×2 (10:20→21:20)
[2022-06-14] MEDS: METOPROLOL TARTRATE 25 MG TAB PO SCH (10:20)
[2022-06-14] MEDS: VALPROIC ACID SOLN 250 MG/5 ML UDC PO SCH ×2 (10:20→21:20)
--- NOTE | 2022-06-14 13:48 | Hospitalist Progress Note ---
Date of Service June 14, 2022 Assessment & Plan (1) Sepsis: Plan: -Now resolving -Could be 2nry to Ostemyelitis and COVID 19, given positive Biofire -patient had COVID in April. This could be reccurent COVID -Patient is currently febrile, hemodynamically stable, stable on RA -Also currently has left heel OM and non healing ulcer (ortho recs amputation) but has been on Vancomycin/Zosyn per staff, he has pulled out multiple PICC lines over his stay, the one he currently has placed was placed on 06/07/22 - CT of the abdomen/Pelvis w/wo contrast did not show any other source of infection, Flagyl has been discontinued -Continue Daptomycin/Cefepime since he was febrile on Vanc/Zosyn -Multiple blood culture sets have been obtained, confirmed with nursing staff that one set was obtained from current PICC site -Ortho recommends amputation for the osteomyelitis and Gen Surgery recommends cholecystecomy, however, family wary patient may not tolerate surgery well -They have opted for Home Hospice, palliative on consult. However, patients home is in need of some repairs and supplies, including hospital bed will be delivered on Friday -Pharmacy suggests Dalbavancin as an alternative to vancomycin if family still wants home antibiotics while on hospice (2) Altered mental status: Plan: Acute encephalopathy -Patient at baseline according to daughter -He is confused and occasionally answers questions (3) Prostate cancer: Plan: -In remission and not on current therapy (4) Memory loss: Plan: -Contique Aricept (5) Acute osteomyelitis of left foot: Plan: -See sepsis (6) Hx of subdural hematoma: Plan: -Per [facility], had been cleared by Neurosurgery for chemical DVT PPX -FU with CT head to rule out acute changes (7) HTN (hypertension): Plan: -Will continue metoprolol for now as he is hemodynamically stable (8) Hypokalemia: Plan: -resolved Plan Home with Hospice when his home has undergone some repairs Admission and Anticipated Discharge Date Admission Date: June 09, 2022 Subjective patient seen and examined, mostly non verbal today Review of Systems Review of Systems: unable to obtain due to mental status Physical Exam Physical Exam: The patient is awake, but did not respond to my questions HEENT--PERRL, EOMI, mucous membranes and oropharynx mildly dry Neck--supple. No JVD. No bruits. Thyroid normal, trachea midline, no adenopathy. Heart--normal S1 and S2. No murmurs, rubs or gallops. Lungs--clear bilaterally, no respiratory distress, no accessory muscle use. Abdomen--normal bowel sounds and soft. Mild epigastric and left sided abdominal pain Extremities--no cyanosis or clubbing. No edema. Dermatologic--normal skin turgor, normal color, no abnormal lymph nodes, no rash. Neurologic--cranial nerves II through XII grossly intact. Rheumatologic--normal range of motion. Psychiatric--normal affect. Results & Data Results & Data ([facility]) Vital Signs (Past 12 Hours) Vital Signs Temp Pulse Pulse Resp BP Pulse Ox O2 Del Method 06/14/22 11:54 97.5 F L 79 19 140/94 94 Room Air 06/14/22 07:23 85 06/14/22 04:01 62 16 96 Room Air 06/14/22 03:53 98.1 F 80 18 140/70 PG Care Time/CCT Total # of Minutes Spent Total Time Spent with Patient: Total time spent is greater than 50% in coordination of care (as documented) at patient's floor/unit and/or counseling patient: Coding Level of Care Code 62491 Subseq Hosp Care Lvl 2 Diagnoses Sepsis A41.9 Altered mental status R41.82 Prostate cancer C61 Memory loss R41.3 Acute osteomyelitis of left foot M86.172 Hx of subdural hematoma Z86.79 HTN (hypertension) I10 Hypokalemia E87.6 Time Spent (min) 35
[2022-06-14] MEDS: MoRPHine SULFATE 5 MG/0.25 ML UDP PO SCH ×2 (13:54→21:20)
--- NOTE | 2022-06-14 15:05 | Palliative Care Progress Note ---
Date of Service June 14, 2022 Assessment & Plan (1) Pain: Plan: Does not appear to have adequate pain control at this time. I spoke with his son and daughter. Recommend stop routine tylenol and do routine dosing of morphine with additional prn dosing. They are concerned about sedation but want him to be comfortable. Will order every 8 hours and hold for lethargy. (2) Palliative care encounter: Plan: Focus of care is comfort and symptom management with continued antibiotics while he remains inpatient. Plan is for discharge home with hospice when his home is ready. Case management coordinating hospice. Admission and Anticipated Discharge Date Admission Date: June 09, 2022 Subjective Sleeping. Continues to have facial grimace. Moaning at times. Appears uncomfortable with routine care per RN. He had morphine x 1 in last 24 hours. (5mg OME). Review of Systems Review of Systems: Unobtainable due to cognitive status Physical Exam Constitutional: + altered mental status; + uncomfortable ENMT: Mouth: + dry oral mucous membranes Respiratory: normal respiratory effort; no labored breathing Cardiovascular: Rate/Rhythm: regular rate and regular rhythm Gastrointestinal (Abdomen): refuses exam Musculoskeletal: Extremities: + muscle atrophy Skin: dressing intact LLE Results & Data ([facility]) Vital Signs (Past 12 Hours) Vital Signs Temp Pulse Pulse Resp BP Pulse Ox O2 Del Method 06/14/22 13:38 Room Air 06/14/22 11:54 97.5 F L 79 19 140/94 94 Room Air 06/14/22 07:23 85 06/14/22 04:01 62 16 96 Room Air 06/14/22 03:53 98.1 F 80 18 140/70 PG Care Time/CCT Total # of Minutes Spent Total Time Spent: 20 Total Time Spent with Patient: Total time spent is greater than 50% in coordination of care (as documented) at patient's floor/unit and/or counseling patient: symptom management, family education and support Coding Level of Care Code 32975 Subseq Hosp Care Lvl 1 Diagnoses Pain R52 Palliative care encounter Z51.5
[2022-06-14] MEDS: DAPTOmycin 500 MG in SYRINGE 0 ML IV SCH (17:06)
[2022-06-15] MEDS: CEFEPIME 2,000 MG in SYRINGE 0 ML IV SCH ×3 (02:21→17:08)
[2022-06-15] MEDS: MoRPHine SULFATE 5 MG/0.25 ML UDP PO SCH ×3 (06:18→20:56)
[2022-06-15] MEDS: SODIUM CHLOR 7% 4 ML NEB NEB SCH ×2 (07:08→19:43)
[2022-06-15] MEDS: ALBUT/IPRATROP 3MG/0.5MG NEB 3 ML VIAL NEB SCH ×2 (07:08→19:43)
[2022-06-15] MEDS: VALPROIC ACID SOLN 250 MG/5 ML UDC PO SCH ×2 (09:05→20:57)
[2022-06-15] MEDS: METOPROLOL TARTRATE 25 MG TAB PO SCH (09:05)
[2022-06-15] MEDS: PANTOprazole 40 MG TAB PO SCH ×2 (09:05→20:57)
--- NOTE | 2022-06-15 12:48 | Hospitalist Progress Note ---
Date of Service June 15, 2022 Assessment & Plan (1) Sepsis: Plan: -Now resolving -Could be 2nry to Ostemyelitis and COVID 19, given positive Biofire -patient had COVID in April. This could be reccurent COVID -Patient is currently febrile, hemodynamically stable, stable on RA -Also currently has left heel OM and non healing ulcer (ortho recs amputation) but has been on Vancomycin/Zosyn per staff, he has pulled out multiple PICC lines over his stay, the one he currently has placed was placed on 06/07/22 - CT of the abdomen/Pelvis w/wo contrast did not show any other source of infection, Flagyl has been discontinued -Continue Daptomycin/Cefepime since he was febrile on Vanc/Zosyn -Multiple blood culture sets have been obtained, confirmed with nursing staff that one set was obtained from current PICC site -Ortho recommends amputation for the osteomyelitis and Gen Surgery recommends cholecystecomy, however, family wary patient may not tolerate surgery well -They have opted for Home Hospice, palliative on consult. However, patients home is in need of some repairs and supplies, including hospital bed will be delivered on Friday -Plan is home with hopsice on Friday -Pharmacy suggests Dalbavancin as an alternative to vancomycin if family still wants home antibiotics while on hospice (2) Altered mental status: Plan: Acute encephalopathy -Patient at baseline according to daughter -He is confused and occasionally answers questions (3) Prostate cancer: Plan: -In remission and not on current therapy (4) Memory loss: Plan: -Contique Aricept (5) Acute osteomyelitis of left foot: Plan: -See sepsis (6) Hx of subdural hematoma: Plan: -Per [facility], had been cleared by Neurosurgery for chemical DVT PPX -FU with CT head to rule out acute changes (7) HTN (hypertension): Plan: -Will continue metoprolol for now as he is hemodynamically stable (8) Hypokalemia: Plan: -resolved Plan Home with Hospice on Friday Admission and Anticipated Discharge Date Admission Date: June 09, 2022 Subjective patient seen and examined, he talks and responds when he chooses to Review of Systems Review of Systems: unable to obtain due to mental status Physical Exam Physical Exam: The patient is awake, but did not respond to my questions HEENT--PERRL, EOMI, mucous membranes and oropharynx mildly dry Neck--supple. No JVD. No bruits. Thyroid normal, trachea midline, no adenopathy. Heart--normal S1 and S2. No murmurs, rubs or gallops. Lungs--clear bilaterally, no respiratory distress, no accessory muscle use. Abdomen--normal bowel sounds and soft. Mild epigastric and left sided abdominal pain Extremities--no cyanosis or clubbing. No edema. Dermatologic--normal skin turgor, normal color, no abnormal lymph nodes, no rash. Neurologic--cranial nerves II through XII grossly intact. Rheumatologic--normal range of motion. Psychiatric--normal affect. Results & Data Results & Data ([facility]) Vital Signs (Past 12 Hours) Vital Signs Pulse Pulse Resp BP Pulse Ox O2 Del Method 06/15/22 12:09 88 16 155/79 H 92 Room Air 06/15/22 11:00 96 H 06/15/22 07:45 96 H 18 133/74 93 Room Air 06/15/22 04:30 144/72 H PG Care Time/CCT Total # of Minutes Spent Total Time Spent with Patient: Total time spent is greater than 50% in coordination of care (as documented) at patient's floor/unit and/or counseling patient: Coding Level of Care Code 29186 Subseq Hosp Care Lvl 2 Diagnoses Sepsis A41.9 Altered mental status R41.82 Prostate cancer C61 Memory loss R41.3 Acute osteomyelitis of left foot M86.172 Hx of subdural hematoma Z86.79 HTN (hypertension) I10 Hypokalemia E87.6 Time Spent (min) 35
[2022-06-15] MEDS: DAPTOmycin 500 MG in SYRINGE 0 ML IV SCH (17:08)
[2022-06-16] MEDS: CEFEPIME 2,000 MG in SYRINGE 0 ML IV SCH ×2 (03:14→09:44)
[2022-06-16] MEDS: MoRPHine SULFATE 5 MG/0.25 ML UDP PO SCH ×3 (05:49→21:59)
[2022-06-16] MEDS: ALBUT/IPRATROP 3MG/0.5MG NEB 3 ML VIAL NEB SCH ×2 (07:08→20:04)
[2022-06-16] MEDS: SODIUM CHLOR 7% 4 ML NEB NEB SCH ×2 (07:08→20:04)
[2022-06-16] MEDS: METOPROLOL TARTRATE 25 MG TAB PO SCH (08:31)
[2022-06-16] MEDS: PANTOprazole 40 MG TAB PO SCH ×2 (08:31→21:58)
[2022-06-16] MEDS: VALPROIC ACID SOLN 250 MG/5 ML UDC PO SCH ×2 (08:32→21:54)
--- NOTE | 2022-06-16 13:04 | Hospitalist Progress Note ---
Date of Service June 16, 2022 Assessment & Plan (1) Sepsis: Plan: -Now resolving -Could be 2nry to Ostemyelitis and COVID 19, given positive Biofire -patient had COVID in April. This could be reccurent COVID -Patient is currently febrile, hemodynamically stable, stable on RA -Also currently has left heel OM and non healing ulcer (ortho recs amputation) but has been on Vancomycin/Zosyn per staff, he has pulled out multiple PICC lines over his stay, the one he currently has placed was placed on 06/07/22 - CT of the abdomen/Pelvis w/wo contrast did not show any other source of infection, Flagyl has been discontinued -Continue Daptomycin/Cefepime since he was febrile on Vanc/Zosyn -Multiple blood culture sets have been obtained, confirmed with nursing staff that one set was obtained from current PICC site -Ortho recommends amputation for the osteomyelitis and Gen Surgery recommends cholecystecomy, however, family wary patient may not tolerate surgery well -They have opted for Home Hospice, palliative on consult. However, patients home is in need of some repairs and supplies, including hospital bed will be delivered on Friday -Plan is home with hopsice on Friday -Pharmacy suggests Dalbavancin as an alternative to vancomycin if family still wants home antibiotics while on hospice (2) Altered mental status: Plan: Acute encephalopathy -Patient at baseline according to daughter -He is confused and occasionally answers questions (3) Prostate cancer: Plan: -In remission and not on current therapy (4) Memory loss: Plan: -Contique Aricept (5) Acute osteomyelitis of left foot: Plan: -See sepsis (6) Hx of subdural hematoma: Plan: -Per [facility], had been cleared by Neurosurgery for chemical DVT PPX -FU with CT head to rule out acute changes (7) HTN (hypertension): Plan: -Will continue metoprolol for now as he is hemodynamically stable (8) Hypokalemia: Plan: -resolved Plan Home with Hospice on Friday Admission and Anticipated Discharge Date Admission Date: June 09, 2022 Subjective patient seen and examined, awake, but did not respond to questions today Review of Systems Review of Systems: unable to obtain due to mental status Physical Exam Physical Exam: The patient is awake, but did not respond to my questions HEENT--PERRL, EOMI, mucous membranes and oropharynx mildly dry Neck--supple. No JVD. No bruits. Thyroid normal, trachea midline, no adenopathy. Heart--normal S1 and S2. No murmurs, rubs or gallops. Lungs--clear bilaterally, no respiratory distress, no accessory muscle use. Abdomen--normal bowel sounds and soft. Mild epigastric and left sided abdominal pain Extremities--no cyanosis or clubbing. No edema. Dermatologic--normal skin turgor, normal color, no abnormal lymph nodes, no rash. Neurologic--cranial nerves II through XII grossly intact. Rheumatologic--normal range of motion. Psychiatric--normal affect. Results & Data Results & Data ([facility]) Vital Signs (Past 12 Hours) Vital Signs Pulse Resp BP Pulse Ox O2 Del Method 06/16/22 08:00 Room Air 06/16/22 08:01 86 18 155/89 H 92 Room Air 06/16/22 07:08 77 18 93 Room Air PG Care Time/CCT Total # of Minutes Spent Total Time Spent with Patient: Total time spent is greater than 50% in coordination of care (as documented) at patient's floor/unit and/or counseling patient: Coding Level of Care Code 53664 Subseq Hosp Care Lvl 2 Diagnoses Sepsis A41.9 Altered mental status R41.82 Prostate cancer C61 Memory loss R41.3 Acute osteomyelitis of left foot M86.172 Hx of subdural hematoma Z86.79 HTN (hypertension) I10 Hypokalemia E87.6 Time Spent (min) 35
[2022-06-16] MEDS: DAPTOmycin 500 MG in SYRINGE 0 ML IV SCH (17:24)
[2022-06-17] MEDS: MoRPHine SULFATE 5 MG/0.25 ML UDP PO SCH ×3 (05:30→20:44)
[2022-06-17] MEDS: SODIUM CHLOR 7% 4 ML NEB NEB SCH ×2 (06:59→19:41)
[2022-06-17] MEDS: ALBUT/IPRATROP 3MG/0.5MG NEB 3 ML VIAL NEB SCH ×2 (06:59→19:41)
[2022-06-17] MEDS: PANTOprazole 40 MG TAB PO SCH ×3 (08:00→22:23)
[2022-06-17] MEDS: VALPROIC ACID SOLN 250 MG/5 ML UDC PO SCH ×3 (08:00→22:23)
[2022-06-17] MEDS: METOPROLOL TARTRATE 25 MG TAB PO SCH (08:00)
[2022-06-17 08:42] LABS: Hematocrit (blood only) 36.6 % (40.1-51.0); Hemoglobin 12.5 g/dl (14.0-18.0); Mean Corpuscular Hemoglobin 33.2 pg (25.0-34.0); Mean Corpuscular Hgb Conc 34.2 g/dL (32.0-36.0); Mean Corpuscular Volume 97.1 fL (80.0-100.0); Mean Platelet Volume 10.3 fL (9.4-12.4); Platelet Count 380 K/uL (130-400); RDW Coefficient of Variation 16.6 % (11.5-14.5); RDW Standard Deviation 58.9 fL (36.4-46.3); Red Blood Count 3.77 M/uL (4.63-6.08); White Blood Count 7.47 K/ul (4.8-10.8)
[2022-06-17 09:07] LABS: BUN Creatinine Ratio 9.8 (10-20); Calcium 7.4 mg/dl (8.5-10.1); Est GFR (African American) 104.8 ml/min; Est GFR (Non-African American) 90.4 ml/min; Potassium 2.6 mmol/L (3.5-5.1)
--- NOTE | 2022-06-17 11:33 | Palliative Care Progress Note ---
Date of Service June 17, 2022 Assessment & Plan (1) Pain: Plan: Appears to be better controlled on routine morphine. He is drowsy at times but not lethargic. (2) Palliative care encounter: Plan: Plan for discharge home today with hospice. He will not be on IV antibiotics at home. Family is aware of this. Admission and Anticipated Discharge Date Admission Date: June 09, 2022 Subjective Tolerating care per RN. Awake. Ate a few bites of breakfast. Dozes off at times. Review of Systems Review of Systems: Unobtainable due to cognitive status Physical Exam Constitutional: no acute distress Respiratory: normal respiratory effort; no labored breathing Neurologic: Speech / Cognition: + abnormal cognition Results & Data ([facility]) Vital Signs (Past 12 Hours) Vital Signs Temp Pulse Resp BP Pulse Ox O2 Del Method O2 Flow Rate 06/17/22 11:07 98.4 F 90 21 132/71 93 Room Air 06/17/22 08:00 Room Air 06/17/22 07:37 97.9 F 86 20 156/77 H 100 Oxymask 10 06/17/22 06:59 82 16 96 Room Air PG Care Time/CCT Total # of Minutes Spent Total Time Spent with Patient: Total time spent is greater than 50% in coordination of care (as documented) at patient's floor/unit and/or counseling patient: Coding Level of Care Code 36501 Subseq Hosp Care Lvl 1 Diagnoses Pain R52 Palliative care encounter Z51.5
--- NOTE | 2022-06-17 15:15 | Hospitalist Progress Note ---
Date of Service June 17, 2022 Assessment & Plan (1) Sepsis: Plan: -Now resolving -Could be 2nry to Ostemyelitis and COVID 19, given positive Biofire -patient had COVID in April. This could be reccurent COVID -Patient is currently febrile, hemodynamically stable, stable on RA -Also currently has left heel OM and non healing ulcer (ortho recs amputation) but has been on Vancomycin/Zosyn per staff, he has pulled out multiple PICC lines over his stay, the one he currently has placed was placed on 06/07/22 - CT of the abdomen/Pelvis w/wo contrast did not show any other source of infection, Flagyl has been discontinued -Continue Daptomycin/Cefepime since he was febrile on Vanc/Zosyn -Multiple blood culture sets have been obtained, confirmed with nursing staff that one set was obtained from current PICC site -Ortho recommends amputation for the osteomyelitis and Gen Surgery recommends cholecystecomy, however, family wary patient may not tolerate surgery well -They have opted for Home Hospice, palliative on consult. However, patients home is in need of some repairs and supplies, including hospital bed will be delivered on Friday -Plan is home with hopsice on Friday -Pharmacy suggests Dalbavancin as an alternative to vancomycin if family still wants home antibiotics while on hospice (2) Altered mental status: Plan: Acute encephalopathy -Patient at baseline according to daughter -He is confused and occasionally answers questions (3) Prostate cancer: Plan: -In remission and not on current therapy (4) Memory loss: Plan: -Contique Aricept (5) Acute osteomyelitis of left foot: Plan: -See sepsis (6) Hx of subdural hematoma: Plan: -Per [facility], had been cleared by Neurosurgery for chemical DVT PPX -FU with CT head to rule out acute changes (7) HTN (hypertension): Plan: -Will continue metoprolol for now as he is hemodynamically stable (8) Hypokalemia: Plan: -resolved Plan Home with Hospice, his transport got cancelled today Admission and Anticipated Discharge Date Admission Date: June 09, 2022 Subjective patient seen and examined, tolerating diet Review of Systems Review of Systems: unable to obtain due to mental status Physical Exam Physical Exam: The patient is awake, but did not respond to my questions HEENT--PERRL, EOMI, mucous membranes and oropharynx mildly dry Neck--supple. No JVD. No bruits. Thyroid normal, trachea midline, no adenopathy. Heart--normal S1 and S2. No murmurs, rubs or gallops. Lungs--clear bilaterally, no respiratory distress, no accessory muscle use. Abdomen--normal bowel sounds and soft. Mild epigastric and left sided abdominal pain Extremities--no cyanosis or clubbing. No edema. Dermatologic--normal skin turgor, normal color, no abnormal lymph nodes, no rash. Neurologic--cranial nerves II through XII grossly intact. Rheumatologic--normal range of motion. Psychiatric--normal affect. Results & Data Results & Data ([facility]) Vital Signs (Past 12 Hours) Vital Signs Temp Pulse Pulse Resp BP Pulse Ox O2 Del Method 06/17/22 13:06 98.4 F 78 90 21 132/71 93 06/17/22 11:07 98.4 F 90 21 132/71 93 Room Air 06/17/22 08:00 Room Air 06/17/22 07:37 97.9 F 86 20 156/77 H 100 Oxymask 06/17/22 06:59 82 16 96 Room Air O2 Flow Rate 06/17/22 13:06 06/17/22 11:07 06/17/22 08:00 06/17/22 07:37 10 06/17/22 06:59 PG Care Time/CCT Total # of Minutes Spent Total Time Spent with Patient: Total time spent is greater than 50% in coordination of care (as documented) at patient's floor/unit and/or counseling patient: Coding Level of Care Code 21885 Subseq Hosp Care Lvl 2 Diagnoses Sepsis A41.9 Altered mental status R41.82 Prostate cancer C61 Memory loss R41.3 Acute osteomyelitis of left foot M86.172 Hx of subdural hematoma Z86.79 HTN (hypertension) I10 Hypokalemia E87.6 Time Spent (min) 35
--- NOTE | 2022-06-17 21:28 | Communication Note ---
Date of Service: June 17, 2022 Notified patient refused PO meds this evening. Ordering equivalent dosing of IV valproic acid as I am unable to determine what patient takes this medication for (no seizure hx listed in chart). Repleting potassium of 2.6. Patient is planning to go home w/ home hospice tomorrow morning.
[2022-06-17] MEDS: VALPROATE SOD 125 MG in DEXTROSE 5% 50 ML IV SCH (22:45)
[2022-06-17] MEDS: POTASSIUM CHLORIDE / WTR 10 MEQ/100 ML PLCT IV SCH (23:46)
[2022-06-18] MEDS: POTASSIUM CHLORIDE / WTR 10 MEQ/100 ML PLCT IV SCH ×3 (00:57→02:50)
[2022-06-18] MEDS: VALPROATE SOD 125 MG in DEXTROSE 5% 50 ML IV SCH ×2 (04:06→09:11)
[2022-06-18] MEDS: MoRPHine SULFATE 5 MG/0.25 ML UDP PO SCH (04:20)
[2022-06-18] MEDS: ALBUT/IPRATROP 3MG/0.5MG NEB 3 ML VIAL NEB SCH (07:33)
[2022-06-18] MEDS: SODIUM CHLOR 7% 4 ML NEB NEB SCH (07:33)
[2022-06-18] MEDS: PANTOprazole 40 MG TAB PO SCH (09:11)
[2022-06-18] MEDS: METOPROLOL TARTRATE 25 MG TAB PO SCH (09:11)
--- NOTE | 2022-06-18 13:18 | Discharge Summary ---
Date of Service June 18, 2022 Admission HPI Per Admitting Provider Chuckie is an 87 year old male with a PMH significant for recent traumatic subarachnoid hemorrhage (Currently at [facility]), Dementia, prostate cancer (in remission), previous DVTs on Warfarin, HTN, left heel osteomyelitis (has been on Zosyn and Vancomycin at [facility]), In the ED the patient was found to be febrile at 39.2 C, hemodynamically stable, stable on RA, and tachycardic in the low 100's. Labs were significant for leukocytosis of 21.38, left shift of 18.93, stable Hgb, INR of 1.2, potassium of 2.9, initial lactate of 2.1 which improved to 1.5 after fluid resuscitation, stable renal function, glucose of 171, high sensitivity troponin of 37.2, procal of 0.62, UA not suggestive of infection, negative tox screen. Chest xray was read as negative for acute processes. Prior to admission the patient was given 2L NSS, and was started on Vancomycin and Cefepime. At the time of the exam the patient was sleeping in bed. His nurses state that since arrival he has been very hard to wake, but after fluid resuscitation and antibiotics it has become a little easier. I was unable to get any history from the patient due to his current mental status. I was able to get in touch with his Physician at [facility] to obtain further information. They state that at baseline the patient is normally not very interactive, especially in the mornings. As he wakes up he will usually take his medications/eat/drink. Up until today he was normally able to sit in a wheelchair without issue. The patient has been on Vancomycin and Zosyn for approximately 10 days at [facility] for the left heel OM, they have a referral in to [facility] but he has yet to be seen by them. This morning the patient was found to be much more lethargic then baseline and would not take medications, eat, or drink, that is why he was sent to the ED. Of note, Dr. Tompkins said that he saw the patient's white count from this AM, this is significantly elevated compared to his White counts at [facility]. I was able to confirm with the ED nursing staff that there were multiple sets of blood cultures obtained, one set was obtained from the patient's PICC line. Principal Diagnosis osteomyelitis Discharge Exam The patient is awake, but did not respond to my questions HEENT--PERRL, EOMI, mucous membranes and oropharynx mildly dry Neck--supple. No JVD. No bruits. Thyroid normal, trachea midline, no adenopathy. Heart--normal S1 and S2. No murmurs, rubs or gallops. Lungs--clear bilaterally, no respiratory distress, no accessory muscle use. Abdomen--normal bowel sounds and soft. Mild epigastric and left sided abdominal pain Extremities--no cyanosis or clubbing. No edema. Dermatologic--normal skin turgor, normal color, no abnormal lymph nodes, no rash. Neurologic--cranial nerves II through XII grossly intact. Rheumatologic--normal range of motion. Psychiatric--normal affect. Discharge Data Allergies Allergy/AdvReac Type Severity Reaction Status Date / Time No Known Allergies Allergy Verified 06/07/22 13:40 Consultations 06/09/22 13:47 ED Decision to Admit Stat 06/09/22 17:55 Consult General Surgery Routine 06/09/22 18:17 Consult Vascular Surgery Routine 06/09/22 22:00 Consult Orthopedic Surgery QSE 06/11/22 12:53 Consult Palliative Care Routine Ordered Studies 06/09/22 14:27 CT abd pelvis IV con only Stat CT foot LT w con Stat CT head/brain wo con Stat 06/09/22 15:17 CT leg [CT tib/fib LT w con] Stat 06/10/22 08:55 US arterial duplex LE LT Routine Hospital Course (1) Sepsis: -Resolved -Could be 2nry to Ostemyelitis and COVID 19, given positive Biofire -patient had COVID in April. This could be reccurent COVID -Patient is currently febrile, hemodynamically stable, stable on RA -Also currently has left heel OM and non healing ulcer (ortho recs amputation) but has been on Vancomycin/Zosyn per staff, he has pulled out multiple PICC lines over his stay, the one he currently has placed was placed on 06/07/22 - CT of the abdomen/Pelvis w/wo contrast did not show any other source of infection, Flagyl has been discontinued -Continue Daptomycin/Cefepime since he was febrile on Vanc/Zosyn -Multiple blood culture sets have been obtained, confirmed with nursing staff that one set was obtained from current PICC site -Ortho recommends amputation for the osteomyelitis and Gen Surgery recommends cholecystecomy, however, family wary patient may not tolerate surgery well -They have opted for Home Hospice, palliative on consult. However, patients home is in need of some repairs and supplies, including hospital bed will be delivered on Friday -Plan is home with hospice today (2) Altered mental status: Acute encephalopathy -Patient at baseline according to daughter -He is confused and occasionally answers questions (3) Prostate cancer: -In remission and not on current therapy (4) Memory loss: -Contique Aricept (5) Acute osteomyelitis of left foot: -See sepsis (6) Hx of subdural hematoma: -Per [facility], had been cleared by Neurosurgery for chemical DVT PPX -FU with CT head to rule out acute changes (7) HTN (hypertension): -Will continue metoprolol for now as he is hemodynamically stable (8) Hypokalemia: -resolved Plan Home with Hospice Total Time Total Time Spent Total Time Spent (In Minutes): 35 Discharge Plan Discharge Items Patient Disposition: Hospice - Home Reason For Visit: AMS Discharge Diagnosis: Osteomyelithis Activity: Resume your previous activity Non-emergency contact: Primary Care Provider Call non-emergency contact if: you have any medication questions Follow-up/Referrals: Rachid Chen DO [Primary Care Provider] - Diet: Regular Addtl Attending Provider Instructions: please follow up with home hospice Pending Studies at Discharge: No Stand-Alone Forms: [facility] Medications and DC Order Prescriptions: Continued donepezil 10 mg tablet 10 mg PO DAILY valproic acid 250 mg Capsule 250 mg PO BID acetaminophen 650 mg Tablet 650 mg PO Q4H PRN (Reason: Pain) metoprolol tartrate [Lopressor] 50 mg Tablet 25 mg PO DAILY nystatin 100,000 unit/gram Powder 1 applic TOPICAL BID docusate sodium 50 mg/mL Solution 100 mg PO BID quetiapine [Seroquel] 50 mg Tablet 50 mg PO HS Discontinued piperacillin-tazobactam [Zosyn] 3.375 gram Recon Soln 3.375 g IV Q6H enoxaparin 30 mg/0.3 mL Syringe 30 mg SUBCUT Q12H vancomycin 1.5 gram Recon Soln 1 g IV DAILY Discharge Orders: Discharge Order (Routine); Ordered 06/18/22 Ordered By: Ashlyn Simmons Admission Data Admit Date/Time: 06/09/22 13:44 Attending Provider: Ashlyn Simmons Admit Provider: Luna Chandler Primary Care Provider: Rachid Chen Other Providers: Luna Chandler ; Wally Lindo ; Edil Freeman ; Richard Rouse ; Esa Fam ; Marvni Silva ; Melvina Higuera ; Traci Ambriz ; Rod Campbell ; Domingo Calvillo ; Petr Hahn ; Petr Benavides ; Loreta Espitia ; Chel Islas ; Radha Kaufman ; Annie Rosas ; Zulema Barger ; Juliette Pérez ; Omar Krueger ; Abran Maurer ; Rox Fisher ; [facility] Other Interventions: Discharge Summary Assessment (RN) Last Done: 06/18/22 10:22 Coding Level of Care Code D/C DAY MANAGEMENT >30 MINS Diagnoses Sepsis A41.9 Altered mental status R41.82 Prostate cancer C61 Memory loss R41.3 Acute osteomyelitis of left foot M86.172 Hx of subdural hematoma Z86.79 HTN (hypertension) I10 Hypokalemia E87.6 Time Spent (min) 35
--- NOTE | 2022-06-27 08:10 | Coding Query ---
PRESSURE ULCER DOCUMENTATION To promote full compliance with coding requirements relating to patient care, physician participation is requested in all cases of certified coder uncertainty. Please assist us with the question(s) below: Please specify the known or suspected type by placing an "X" within the parenthesis (x). A pressure ulcer of the left heel If possible, please check the box that provides the specific stage of the pressure ulcer ( ) Stage I ( ) Stage II ( ) Stage III ( ) Stage IV ( ) Unstageable ( ) Unable to determine Was the pressure ulcer present on admission? Please check the appropriate box for the pressure ulcer: ( ) Present on admission ( ) Not present on admission ( ) Unable to be clinically determined Thank you Macrina PRICE
--- NOTE | 2022-06-27 08:13 | Coding Query ---
CODING QUERY To promote full compliance with coding requirements relating to patient care, provider participation is requested in all cases of medical coder uncertainty. Please assist us with the question(s) below: Coding Question(s): MULTIPLE CAUSES OF ULCER DOCUMENTED. PLEASE CLARIFY IF THE LEFT HEEL ULCER WAS DUE TO: Physician's Response(s): (choose all that apply) ( x ) PRESSURE ULCER ( ) PAD ( ) OTHER, PLEASE SPECIFY Thank you Macrina Neville Principal Diagnosis: "that condition established after study, to be chiefly responsible for occasioning the admission of the patient to the hospital for care." Co-Existing Principal Diagnosis: "when two or more diagnoses equally meet the criteria for principal diagnosis as determined by the circumstances of admission, diagnostic work up, and/or therapy provided, and the Alphabetic Index, Tabular List, or another coding guideline does not provide sequencing direction, any one of the diagnoses may be sequenced first." "When the physician has documented what appears to be a current diagnosis in the body of the record, but has not included the diagnosis in the final diagnostic statement, the physician should be asked whether the diagnosis should be added." ([facility] 2 QTR90. p3-4) ALBERT
--- NOTE | 2022-06-27 08:20 | Coding Query ---
DEBRIDEMENT DOCUMENTATION To promote full compliance with coding requirements relating to patient care, physician participation is requested in all cases of hospital attendant uncertainty. Please assist us with the question(s) below: Please place an X in the parenthesis (x). If other, please document the finding: DEBRIDEMENT OF LEFT HEEL PERFORMED ON 06/11/22 Type of Debridement: (x ) Excisional Debridement- Cutting away necrotic, devitalized tissue or slough to the level of viable tissue using a sharp instrument (i.e. scalpel, scissors, etc.) ( ) Non Excisional Debridement- The removal of necrotic, devitalized tissue or slough by means of scraping, mechanical brushing, flushing, or washing (i.e. irrigation,whirlpool);minor removal of loose fragments. ( ) Other (please specify): Depth of Debridement: ( ) Skin (x ) Skin and Subcutaneous Tissue ( ) Skin, Subcutaneous Tissue and Muscle ( ) Skin, Subcutaneous Tissue, Muscle and Bone ( ) Other (please specify): Thank you Macrina PRICE
--- NOTE | 2022-07-09 06:30 | Coding Query ---
PRESSURE ULCER DOCUMENTATION To promote full compliance with coding requirements relating to patient care, physician participation is requested in all cases of ssas developer uncertainty. Please assist us with the question(s) below: Please specify the known or suspected type by placing an "X" within the parenthesis (x). A pressure ulcer of the LEFT HEEL If possible, please check the box that provides the specific stage of the pressure ulcer ( ) Stage I ( ) Stage II ( ) Stage III ( ) Stage IV ( ) Unstageable ( x) Unable to determine Was the pressure ulcer present on admission? Please check the appropriate box for the pressure ulcer: (x ) Present on admission ( ) Not present on admission ( ) Unable to be clinically determined Thank you Macrina PRICE
== END 2022-06-18 11:19 | disposition hospice, home (50) | DRG 853 ==
LOC: ED 09:32 → EDINP 13:44 → SUATTDRO 13:44 → 2N 17:56